=== PATIENT | female | born 1990 | race Caucasian/White ===

== ENCOUNTER 2016-06-26 05:59 | Emergency (ER) | payer MEDICARE, MEDICAID ==
[~2016-06-26 05:59] MED LIST: AMBI10TA PO; AMOX875T2 PO; BACT800T5 PO; BENA25CA2 PO; CELE20TA PO; CELE40TA PO; CLAR1TAB2 PO; CLON0.5T PO; DEPA500T2 OR; DEPAKOTE ER PO; FLUO10TA2 OR; HYDR-3713 PO; IBUP80TA PO; INVE234I IM; LAMI25TA PO; LATU1TAB PO; LEVO100T OR; LEVO100T5 PO; LEVO10VL PO; LITH1TAB4 PO; LITH300C PO; LYRI300C PO; LYRI75CA PO; MACR100C3 PO; MINI1CAP PO; NEUR600T PO; NICO14DI3 TD; OLAN20TA PO; PERC5TAB PO; PREG50CA PO; PRIL20CA OR; PROT1TAB2 PO; PROTPAK PO; QUET1TAB8 PO; QUET1TAB9 PO; QUET20XRTB PO; REME30TA PO; RISP25INJ IM; RISP3TAB18 PO; SERO1TAB PO; SERO1TAB2 PO; SKEL-29 PO; STRA80CA PO; SYNT100T PO; TRAZ100T4 PO; TRAZ50TA4 PO; ULTR50TA PO; VIST50CA PO; VITA200028 PO; VITA400C29 PO; VITA50003 PO; VITA500046 PO; VITA500T53 PO; ZANTTAB9 PO; ZYPR10TA PO; [UNRECOGNIZED DRUG - CODE] PO
[2016-06-26] MEDS ORDERED: KETOROLAC 30 MG/ML VIAL (J1885) As Ordered ONE (07:19)
[2016-06-26] MEDS ORDERED: ONDANSETRON 4MG/2ML VIAL (J2405) As Ordered ONE (07:19)
[2016-06-26 08:00] LABS: BASO % 0.2 % (0.0-1.0); EOS % 0.2 % (0.0-3.0); LARGE UNSTAINED CELL # 0.1 K/mm3 (0.0-0.4); LARGE UNSTAINED CELL % 0.4 % (0.0-4.0); LYMPH # 0.6 K/mm3 (1.5-6.5); LYMPH % 2.7 % (24.0-44.0); MEAN CORPUSCULAR HEMOGLOBIN 29.6 pg (27.0-33.0); MEAN CORPUSCULAR HGB CONC 33.6 g/dl (32.0-36.5); MEAN CORPUSCULAR VOLUME 88.2 fl (80.0-96.0); MONO # 0.3 K/mm3 (0.0-0.8); MONO % 1.6 % (0.0-5.0); NEUTROPHILS # 19.6 K/mm3 (1.8-7.7); PLATELET COUNT, AUTOMATED 312 k/mm3 (150-450); RED CELL DISTRIBUTION WIDTH 12.9 % (11.5-14.5); WHITE BLOOD COUNT 20.6 K/mm3 (4.0-10.0)
--- NOTE | 2016-06-26 08:10 | REPUSA ---
CLINICAL HISTORY: Abdominal pain. TECHNIQUE: Multiple axial, sagittal and coronal CT images were obtained through the abdomen and pelvi s without administration of oral or IV contrast material. COMMENTS: The liver is of uniform attenuation without mass or defect. There is no intra or extrahepatic biliary ductal dilatation. The spleen is normal. The gallbladder is within normal limits. The pancreas is of normal contour and attenuation characteristics. There is no evidence of adrenal mass. Moderately enlarged kidneys. Large number of bilateral renal cysts suggestive of polycystic kidney di sease. Few of them contain hyperdense material. Right renal nonobstructing stones with the largest me asuring 5 mm. There is no hydroureter or hydronephrosis. There is no evidence for appendicitis. There is no bowel wall thickening. No evidence for small or la rge bowel obstruction. There is no evidence of abdominal ascites or lymphadenopathy. There is no evidence of intrinsic or extrinsic bladder mass. There is no pelvic ascites or lymphadeno chepe. Bilateral tubal clips are noted. Diffuse thickening of the wall of the bladder. Images of the lung bases show no evidence of pleural or parenchymal mass. There are no pleural effusi ons. The bony structures are free of lytic or blastic lesions. Multilevel degenerative changes are seen in volving the thoracolumbar spine. Scattered calcifications are seen involving the aorta and major branches compatible with atherosclero sis. IMPRESSION: Moderately enlarged kidneys. Polycystic kidney disease. Bilateral hyperdense cysts of the kidneys. Right nephrolithiasis. Thank you for your kind referral of this patient.
[2016-06-26 08:11] LABS: ANION GAP 11 MEQ/L (8-16); BLOOD UREA NITROGEN 15 MG/DL (7-18); CALCIUM LEVEL 9.2 MG/DL (8.5-10.1); CARBON DIOXIDE LEVEL 25 MEQ/L (21-32); CHLORIDE LEVEL 107 MEQ/L (98-107); CREATININE FOR GFR 1.15 MG/DL (0.55-1.02); GLOMERULAR FILTRATION RATE > 60.0 (>60); GLUCOSE, FASTING 114 MG/DL (70-105); POTASSIUM SERUM 3.4 MEQ/L (3.5-5.1); SODIUM LEVEL 143 MEQ/L (136-145)
--- NOTE | 2016-06-26 08:40 | EDDOCDS ---
Physician Documentation [facility] Name: Malreny Solorio Age: 26 yrs Sex: Female : 1990 Arrival Date: 06/26/2016 Time: 05:59 Bed 7 Private MD: Disposition: 06/26/16 08:21 Discharged to Home/Self Care. Impression: Low back pain, Nausea and vomiting. - Condition is Stable. - Discharge Instructions: Viral Gastroenteritis. - Prescriptions for Ultram 50 mg Oral Tablet - take 1 tablet by ORAL route every 6 hours As needed MDD: 4 tabs; 12 tablet. ZOFRAN ODT 4 mg - dissolve 1 tablet by ORAL route 4 times per day As needed do not chew, do not swallow whole; 10 tablet. - Medication Reconciliation, Local Pharmacy Hours form. - Follow up: Private Physician; When: Call to arrange an appointment; Reason: Wound/Symptom Recheck, Recheck today's complaints, Worsening of conditions, Continuance of care. - Problem is an acute exacerbation. - Symptoms have improved. Historical: - Allergies: Geodon; - Home Meds: 1. levothyroxine 100 mcg Oral cap once daily 2. Seroquel 600 mg at hs Oral once [place] 3[place] [address] weekly - PMHx: ADHD; Anxiety; Asthma; Bipolar disorder; Fibromyalgia; hearing impaired; Hypothyroidism; Polycystic Kidney Disease; PTSD; Schizo-Affective Disorder; Scoliosis; vit d deficiency; - Social history: Smoking status: Patient uses tobacco products, current every day smoker. No barriers to communication noted. - Family history: No immediate family members are acutely ill. - : The pt / caregiver states he / she is not on anticoagulants. Home medication list is obtained from the patient. - Exposure Risk Screening:: None identified. GREEN BELT: 06/26 08:08 LMP 06/07/2016 hs1 Vital Signs: 06:10 BP 149 / 91; Pulse 82; Resp 18; Temp 100.2; Pulse Ox 100% ; mv5 08:00 BP 127 / 85; Pulse 82; Resp 18; Temp 100.1(O); Pulse Ox 100% ; Pain 0/10; hs1 08:08 Weight 83.46 kg / 184 lbs (R); Height 5 ft. 6 in. (167.64 cm) (R); hs1 08:08 Body Mass Index 29.70 (83.46 kg, 167.64 cm) hs1 MDM: 07:13 IV Saline Lock ordered. cc10 07:13 NS 0.9% 1000 ml IV at bolus once ordered. cc10 07:13 Ondansetron 4 mg IVP once ordered. cc10 07:13 ketorolac 30 mg IVP once ordered. cc10 07:13 UCG by Nursing ordered. cc10 07:14 Basic Metabolic Profile Ordered. EDMS 07:14 CBC with Diff Ordered. EDMS 07:14 Urinalysis Ordered. EDMS 07:14 Urine Culture Ordered. EDMS 07:15 CT ABD & PELVIS: No Contrast Ordered. EDMS 07:54 Financial registration complete. gb 08:07 CBC with Diff Reviewed. cc10 08:07 Urinalysis Reviewed. cc10 08:17 Basic Metabolic Profile Reviewed. cc10 Point of Care Testing: Urine : 07:32 hCG Reading: Negative; Control Reading: Positive; hs1 Ranges: Administered Medications: 07:30 Drug: NS 0.9% 1000 ml [sodium chloride 0.9 % intravenous solution] Route: IV; Rate: hs1 bolus; Site: right antecubital; 07:30 Drug: Ondansetron 4 mg [ondansetron HCl 2 mg/mL intravenous solution (2 mL)] Route: hs1 IVP; Site: right antecubital; 07:30 Drug: ketorolac 30 mg [ketorolac 30 mg/mL (1 mL) injection solution (1 mL)] Route: IVP; hs1 Site: right antecubital; Signatures: Dispatcher [employer] EDMS Kristin Mills, Reg Reg Suki Sullivan RN RN hs1 Emmett Butler, PA-C PA-C cc10 Tessie Jennings,TRISTAN RN mv5 MTDD
--- NOTE | 2016-06-26 08:40 | EDDOCDS ---
Nurse's Notes [facility] Name: Marleny Solorio Age: 26 yrs Sex: Female : 1990 Arrival Date: 06/26/2016 Time: 05:59 Bed 7 Private MD: Diagnosis: Low back pain;Nausea and vomiting Presentation: 06/26 06:03 Presenting complaint: EMS states: Pt to ed by EMS for evaluation of non-traumatic back mv5 pain, bilaterally. Pt denies dysuria, c/o chills. Reports ETOH use last night. Acute neurological deficits are not present. Mechanism of Injury: No Mechanism of Injury. Adult Sepsis Screening: The patient does not have new or worsening altered mentation. Patient's respiratory rate is less than 22. Systolic blood pressure is greater than 100. Patient has a qSOFA score of 0- Negative Sepsis Screen. Suicide/Homicide risk assessment- the patient denies having any suicidal and/or homicidal ideations and does not present with any other emotional, behavioral or mental health complaints. Status: Patient is not a message and delivery service pricer or dependent. Transition of care: patient was not received from another setting of care. 06:03 Acuity: KARI Level 4 mv5 06:03 Method Of Arrival: Ambulance mv5 Triage Assessment: 06:10 General: Appears uncomfortable, Behavior is anxious, uncooperative. Pain: Location: mv5 left mid back and right mid back Pain currently is 10 out of 10 on a pain scale. Pt Declines HIV testing. The patient is triaged at the bedside. See Assessment in Nurses Notes section of ED record. Neurological: Level of Consciousness is awake, alert, Oriented to person, place, time. Cardiovascular: Capillary refill < 3 seconds. Respiratory: Airway is patent Respiratory effort is even, unlabored, Respiratory pattern is regular, symmetrical. GI:. Derm: Skin is pink, warm & dry. Musculoskeletal: No deficits noted. WAREHOUSE PERSON: 08:08 LMP 06/07/2016 hs1 Historical: - Allergies: Geodon; - Home Meds: 1. levothyroxine 100 mcg Oral cap once daily 2. Seroquel 600 mg at hs Oral once [place] 3[place] [address] weekly - PMHx: ADHD; Anxiety; Asthma; Bipolar disorder; Fibromyalgia; hearing impaired; Hypothyroidism; Polycystic Kidney Disease; PTSD; Schizo-Affective Disorder; Scoliosis; vit d deficiency; - Social history: Smoking status: Patient uses tobacco products, current every day smoker. No barriers to communication noted. - Family history: No immediate family members are acutely ill. - : The pt / caregiver states he / she is not on anticoagulants. Home medication list is obtained from the patient. - Exposure Risk Screening:: None identified. Screenin:18 Screening information is obtained from the patient. Fall risk: No risks identified. mv5 Assistance ADL's: requires no assistance with activities of daily living. Abuse/DV Screen: The patient / caregiver reports he/she is: not in a situation that causes fear, pain or injury. Nutritional screening: No deficits noted. Advance Directives: There is no active DNR order. home support is adequate. Assessment: 06:18 General: see triage assessment.. mv5 07:05 General: overheard arguing with nurses over not receiving pain medication and demanding hs1 ice chips. Patient explained that she was awaiting a physicians orders and assessment. . 07:34 General: Appears in no apparent distress, Behavior is fussy. Pain: Location: right mid hs1 back and left mid back Pain currently is 9 out of 10 on a pain scale. Neurological: No deficits noted. Respiratory: Airway is patent Respiratory effort is even, unlabored, Respiratory pattern is regular, symmetrical. GI: Abdomen is non- distended Pt is actively vomiting bile. Derm: Skin is pink, warm & dry. normal. 07:58 General: Appears in no apparent distress, Behavior is fussy, Patient called out hs1 multiple times for ice chips- PA aware. Patient states she is feeling much better and last time she vomited was just prior to Zofran administration. Ice chips given at this time. . Pain: Denies pain. Respiratory: No deficits noted. GI: Denies nausea. Vital Signs: 06:10 BP 149 / 91; Pulse 82; Resp 18; Temp 100.2; Pulse Ox 100% ; mv5 08:00 BP 127 / 85; Pulse 82; Resp 18; Temp 100.1(O); Pulse Ox 100% ; Pain 0/10; hs1 08:08 Weight 83.46 kg (R); Height 5 ft. 6 in. (167.64 cm) (R); hs1 08:08 Body Mass Index 29.70 (83.46 kg, 167.64 cm) 1 Vitals: 06:10 Log In Time N/A - ambulance arrival. mv5 ED Course: 06:00 Tessie Jennings RN is Primary Nurse. jlm 06:00 Patient visited by Ree Berman, Tooling Inspector. jl 06:00 Patient moved to [facility] 06:08 Triage Initiated mv5 06:18 The patient / caregiver is instructed regarding the plan of care and ED course. mv5 06:59 Emmett Butler PA-C is PHCP. cc10 06:59 Ryne Johnson MD is Attending Physician. cc10 07:03 Patient visited by Tessie Jennings RN. mv5 07:09 Patient visited by Emmett Butler PA-C. cc10 07:09 Patient visited by Emmett Butler PA-C. cc10 07:28 Primary Nurse role handed off by Tessie Jennings RN mlb1 07:31 Basic Metabolic Profile Sent. hs1 07:31 CBC with Diff Sent. hs1 07:31 Urinalysis Sent. hs1 07:31 Urine Culture Sent. hs1 07:32 Inserted saline lock: 20 gauge in right antecubital area and blood collected. The hs1 patient tolerated the procedure well. Labs drawn. (by ED staff). Sent per order to lab. Urine collected. Clean catch specimen. 07:58 Patient visited by Suki Sullivan RN. hs1 08:27 Suki Sullivan RN is Primary Nurse. hs1 08:37 Discontinued IV lock intact, bleeding controlled, pressure dressing applied, No hs1 redness/swelling at site. No procedures done that require assistance. Administered Medications: 07:30 Drug: NS 0.9% 1000 ml [sodium chloride 0.9 % intravenous solution] Route: IV; Rate: hs1 bolus; Site: right antecubital; 07:30 Drug: Ondansetron 4 mg [ondansetron HCl 2 mg/mL intravenous solution (2 mL)] Route: hs1 IVP; Site: right antecubital; 07:30 Drug: ketorolac 30 mg [ketorolac 30 mg/mL (1 mL) injection solution (1 mL)] Route: IVP; hs1 Site: right antecubital; Point of Care Testing: Urine : 07:32 hCG Reading: Negative; Control Reading: Positive; hs1 Ranges: Order Results: Lab Order: Basic Metabolic Profile; SPEC'06/26/16 07:29 Test: GLUCOSE, FASTING; Value: 114; Range: 70-105; Abnormal: Above high normal; Units: MG/DL; Status: F Test: BLOOD UREA NITROGEN; Value: 15; Range: 7-18; Units: MG/DL; Status: F Test: CREATININE FOR GFR; Value: 1.15; Range: 0.55-1.02; Abnormal: Above high normal; Units: MG/DL; Status: F Test: GLOMERULAR FILTRATION RATE; Value: > 60.0; Range: >60; Status: F Test: SODIUM LEVEL; Value: 143; Range: 136-145; Units: MEQ/L; Status: F Test: POTASSIUM SERUM; Value: 3.4; Range: 3.5-5.1; Abnormal: Below low normal; Units: MEQ/L; Status: F Test: CHLORIDE LEVEL; Value: 107; Range: 98-107; Units: MEQ/L; Status: F Test: CARBON DIOXIDE LEVEL; Value: 25; Range: 21-32; Units: MEQ/L; Status: F Test: ANION GAP; Value: 11; Range: 8-16; Units: MEQ/L; Status: F Test: CALCIUM LEVEL; Value: 9.2; Range: 8.5-10.1; Units: MG/DL; Status: F Test Note: ; Units are mL/min/1.73 m2 Chronic Kidney Disease Staging per NKF: Stage I & II GFR >=60 Normal to Mildly Decreased Stage III GFR 30-59 Moderately Decreased Stage IV GFR 15-29 Severely Decreased Stage V GFR <15 Very Little GFR Left ESRD GFR <15 on [facility] Lab Order: CBC with Diff; SPEC'M 06/26/16 07:29 Test: WHITE BLOOD COUNT; Value: 20.6; Range: 4.0-10.0; Abnormal: Above high normal; Units: K/mm3; Status: F Test: RED BLOOD COUNT; Value: 5.11; Range: 4.00-5.40; Units: M/mm3; Status: F Test: HEMOGLOBIN; Value: 15.1; Range: 12.0-16.0; Units: g/dl; Status: F Test: HEMATOCRIT; Value: 45.0; Range: 36.0-47.0; Units: %; Status: F Test: MEAN CORPUSCULAR VOLUME; Value: 88.2; Range: 80.0-96.0; Units: fl; Status: F Test: MEAN CORPUSCULAR HEMOGLOBIN; Value: 29.6; Range: 27.0-33.0; Units: pg; Status: F Test: MEAN CORPUSCULAR HGB CONC; Value: 33.6; Range: 32.0-36.5; Units: g/dl; Status: F Test: RED CELL DISTRIBUTION WIDTH; Value: 12.9; Range: 11.5-14.5; Units: %; Status: F Test: PLATELET COUNT, AUTOMATED; Value: 312; Range: 150-450; Units: k/mm3; Status: F Test: NEUTROPHILS %; Value: 95.0; Range: 36.0-66.0; Abnormal: Above high normal; Units: %; Status: F Test: LYMPH %; Value: 2.7; Range: 24.0-44.0; Abnormal: Below low normal; Units: %; Status: F Test: MONO %; Value: 1.6; Range: 0.0-5.0; Units: %; Status: F Test: EOS %; Value: 0.2; Range: 0.0-3.0; Units: %; Status: F Test: BASO %; Value: 0.2; Range: 0.0-1.0; Units: %; Status: F Test: LARGE UNSTAINED CELL %; Value: 0.4; Range: 0.0-4.0; Units: %; Status: F Test: NEUTROPHILS #; Value: 19.6; Range: 1.8-7.7; Abnormal: Above high normal; Units: K/mm3; Status: F Test: LYMPH #; Value: 0.6; Range: 1.5-6.5; Abnormal: Below low normal; Units: K/mm3; Status: F Test: MONO #; Value: 0.3; Range: 0.0-0.8; Units: K/mm3; Status: F Test: EOS #; Value: 0.0; Range: 0.0-0.50; Units: K/mm3; Status: F Test: BASO #; Value: 0.0; Range: 0.0-0.2; Units: K/mm3; Status: F Test: LARGE UNSTAINED CELL #; Value: 0.1; Range: 0.0-0.4; Units: K/mm3; Status: F Lab Order: Urinalysis; SPEC'M 06/26/16 07:23 Test: APPEARANCE, URINE; Value: CLEAR; Range: CLEAR; Status: F Test: COLOR, URINE; Value: YELLOW; Range: YELLOW; Status: F Test: PH,URINE; Value: 7.0; Range: 5.0-9.0; Units: UNITS; Status: F Test: SPECIFIC GRAVITY URINE AUTO; Value: 1.015; Range: 1.002-1.035; Status: F Test: PROTEIN, URINE AUTO; Value: 1+; Range: NEGATIVE; Abnormal: Above high normal; Units: mg/dL; Status: F Test: GLUCOSE, URINE (UA) AUTO; Value: NEGATIVE; Range: NEGATIVE; Units: mg/dL; Status: F Test: KETONE, URINE AUTO; Value: 2+; Range: NEGATIVE; Abnormal: Above high normal; Units: mg/dL; Status: F Test: UROBILINOGEN, URINE AUTO; Value: 0.2; Range: 0.0-2.0; Units: mg/dL; Status: F Test: BILIRUBIN, URINE AUTO; Value: NEGATIVE; Range: NEGATIVE; Status: F Test: NITRITE, URINE AUTO; Value: NEGATIVE; Range: NEGATIVE; Status: F Test: LEUKOCYTE ESTERASE, URINE AUTO; Value: NEGATIVE; Range: NEGATIVE; Status: F Test: BLOOD, URINE BLOOD; Value: NEGATIVE; Range: NEGATIVE; Status: F Test: WBC, URINE AUTO; Value: 1; Range: 0-3; Units: /HPF; Status: F Test: RBC, URINE AUTO; Value: 2; Range: 0-3; Units: /HPF; Status: F Test: BACTERIA, URINE AUTO; Value: NEGATIVE; Range: NEGATIVE; Status: F Test: SQUAMOUS EPITHELIAL CELL UR AU; Value: 1; Range: 0-6; Units: /HPF; Status: F Test: MUCUS, URINE; Value: SMALL; Range: NEGATIVE; Status: F Test: HYALINE CAST, URINE AUTO; Value: 0; Range: 0-1; Units: /LPF; Status: F Outcome: 08:09 CT Study completed. hs1 08:21 Discharge ordered by Provider. cc10 08:37 Discharge Assessment: Patient awake, alert and oriented x 3. No cognitive and/or hs1 functional deficits noted. Patient verbalized understanding of disposition instructions. patient administered narcotics - no. The following High Risk Discharge criteria are identified: None. Discharged to home ambulatory. Condition: good. Discharge instructions given to patient, Instructed on discharge instructions, follow up and referral plans. medication usage, Demonstrated understanding of instructions, medications, Pt was receptive of discharge instructions/ teaching. Prescriptions given X 2. Property sent home with patient. 08:40 Patient left the ED. hs1 Signatures: Shankar Valderrama RN RN mlb1 Suki Sullivan RN RN hs1 Emmett Butler, PA-C PA-C cc10 Ree Berman, Tooling Inspector Unit Tessie Varghese,RN RN mv5 RACHAEL
--- NOTE | 2016-06-28 09:41 | EDDOCDS ---
Physician Documentation [facility] Name: Marleny Solorio Age: 26 yrs Sex: Female : 1990 Arrival Date: 06/26/2016 Time: 05:59 Bed 7 Private MD: Disposition: 06/26/16 08:21 Discharged to Home/Self Care. Impression: Low back pain, Nausea and vomiting. - Condition is Stable. - Discharge Instructions: Viral Gastroenteritis. - Prescriptions for Ultram 50 mg Oral Tablet - take 1 tablet by ORAL route every 6 hours As needed MDD: 4 tabs; 12 tablet. ZOFRAN ODT 4 mg - dissolve 1 tablet by ORAL route 4 times per day As needed do not chew, do not swallow whole; 10 tablet. - Medication Reconciliation, Local Pharmacy Hours form. - Follow up: Private Physician; When: Call to arrange an appointment; Reason: Wound/Symptom Recheck, Recheck today's complaints, Worsening of conditions, Continuance of care. - Problem is an acute exacerbation. - Symptoms have improved. Historical: - Allergies: Geodon; - Home Meds: 1. levothyroxine 100 mcg Oral cap once daily 2. Seroquel 600 mg at hs Oral once [place] 3. [place] [address]66 weekly - PMHx: ADHD; Anxiety; Asthma; Bipolar disorder; Fibromyalgia; hearing impaired; Hypothyroidism; Polycystic Kidney Disease; PTSD; Schizo-Affective Disorder; Scoliosis; vit d deficiency; - Social history: Smoking status: Patient uses tobacco products, current every day smoker. No barriers to communication noted. - Family history: No immediate family members are acutely ill. - : The pt / caregiver states he / she is not on anticoagulants. Home medication list is obtained from the patient. - Exposure Risk Screening:: None identified. 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 6 in. (167.64 cm) (R); hs1 08:08 Body Mass Index 29.70 (83.46 kg, 167.64 cm) hs1 MDM: 07:13 IV Saline Lock ordered. cc10 07:13 NS 0.9% 1000 ml IV at bolus once ordered. cc10 07:13 Ondansetron 4 mg IVP once ordered. cc10 07:13 ketorolac 30 mg IVP once ordered. cc10 07:13 UCG by Nursing ordered. cc10 07:14 Basic Metabolic Profile Ordered. EDMS 07:14 CBC with Diff Ordered. EDMS 07:14 Urinalysis Ordered. EDMS 07:14 Urine Culture Ordered. EDMS 07:15 CT ABD & PELVIS: No Contrast Ordered. EDMS 07:54 Financial registration complete. gb 08:07 CBC with Diff Reviewed. cc10 08:07 Urinalysis Reviewed. cc10 08:17 Basic Metabolic Profile Reviewed. cc10 09:47 [facility] Payment Agreement was scanned into PlanGrid and attached to record. gb 17:57 T-Sheet-- Draft Copy was scanned into [employer] and attached to record. klr Point of Care Testing: Urine : 07:32 hCG Reading: Negative; Control Reading: Positive; hs1 Ranges: Administered Medications: 07:30 Drug: NS 0.9% 1000 ml [sodium chloride 0.9 % intravenous solution] Route: IV; Rate: hs1 bolus; Site: right antecubital; 07:30 Drug: Ondansetron 4 mg [ondansetron HCl 2 mg/mL intravenous solution (2 mL)] Route: hs1 IVP; Site: right antecubital; 07:30 Drug: ketorolac 30 mg [ketorolac 30 mg/mL (1 mL) injection solution (1 mL)] Route: IVP; hs1 Site: right antecubital; Signatures: Dispatcher [employer] EDNM Kristin Mills, Reg Reg gb Suki Sullivan RN RN hs1 Emmett Butler PA-C PACarmen cc10 Anjana Sargent Megan,RN RN mv5 The chart was reviewed and I authenticate all verbal orders and agree with the evaluation and treatment provided.Attachments: 09:47 [facility] Payment Agreement gb 17:57 T-Sheet-- Draft Copy klr Chart Complete MTDD
--- NOTE | 2016-06-28 09:41 | EDDOCDS ---
Nurse's Notes [facility] Name: Marleny Solorio Age: 26 yrs Sex: Female : 1990 Arrival Date: 06/26/2016 Time: 05:59 Bed 7 Private MD: Diagnosis: Low back pain;Nausea and vomiting Presentation: 06/26 06:03 Presenting complaint: EMS states: Pt to ed by EMS for evaluation of non-traumatic back mv5 pain, bilaterally. Pt denies dysuria, c/o chills. Reports ETOH use last night. Acute neurological deficits are not present. Mechanism of Injury: No Mechanism of Injury. Adult Sepsis Screening: The patient does not have new or worsening altered mentation. Patient's respiratory rate is less than 22. Systolic blood pressure is greater than 100. Patient has a qSOFA score of 0- Negative Sepsis Screen. Suicide/Homicide risk assessment- the patient denies having any suicidal and/or homicidal ideations and does not present with any other emotional, behavioral or mental health complaints. Status: Patient is not a direct service provider or dependent. Transition of care: patient was not received from another setting of care. 06:03 Acuity: KARI Level 4 mv5 06:03 Method Of Arrival: Ambulance mv5 Triage Assessment: 06:10 General: Appears uncomfortable, Behavior is anxious, uncooperative. Pain: Location: mv5 left mid back and right mid back Pain currently is 10 out of 10 on a pain scale. Pt Declines HIV testing. The patient is triaged at the bedside. See Assessment in Nurses Notes section of ED record. Neurological: Level of Consciousness is awake, alert, Oriented to person, place, time. Cardiovascular: Capillary refill < 3 seconds. Respiratory: Airway is patent Respiratory effort is even, unlabored, Respiratory pattern is regular, symmetrical. GI:. Derm: Skin is pink, warm & dry. Musculoskeletal: No deficits noted. JEWELRY COATER: 08:08 LMP 06/07/2016 hs1 Historical: - Allergies: Geodon; - Home Meds: 1. levothyroxine 100 mcg Oral cap once daily 2. Seroquel 600 mg at hs Oral once [place] 3. [place] [id number] weekly - PMHx: ADHD; Anxiety; Asthma; Bipolar disorder; Fibromyalgia; hearing impaired; Hypothyroidism; Polycystic Kidney Disease; PTSD; Schizo-Affective Disorder; Scoliosis; vit d deficiency; - Social history: Smoking status: Patient uses tobacco products, current every day smoker. No barriers to communication noted. - Family history: No immediate family members are acutely ill. - : The pt / caregiver states he / she is not on anticoagulants. Home medication list is obtained from the patient. - Exposure Risk Screening:: None identified. Screenin:18 Screening information is obtained from the patient. Fall risk: No risks identified. mv5 Assistance ADL's: requires no assistance with activities of daily living. Abuse/DV Screen: The patient / caregiver reports he/she is: not in a situation that causes fear, pain or injury. Nutritional screening: No deficits noted. Advance Directives: There is no active DNR order. home support is adequate. Assessment: 06:18 General: see triage assessment.. mv5 07:05 General: overheard arguing with nurses over not receiving pain medication and demanding hs1 ice chips. Patient explained that she was awaiting a physicians orders and assessment. . 07:34 General: Appears in no apparent distress, Behavior is fussy. Pain: Location: right mid hs1 back and left mid back Pain currently is 9 out of 10 on a pain scale. Neurological: No deficits noted. Respiratory: Airway is patent Respiratory effort is even, unlabored, Respiratory pattern is regular, symmetrical. GI: Abdomen is non- distended Pt is actively vomiting bile. Derm: Skin is pink, warm & dry. normal. 07:58 General: Appears in no apparent distress, Behavior is fussy, Patient called out hs1 multiple times for ice chips- PA aware. Patient states she is feeling much better and last time she vomited was just prior to Zofran administration. Ice chips given at this time. . Pain: Denies pain. Respiratory: No deficits noted. GI: Denies nausea. Vital Signs: 06:10 BP 149 / 91; Pulse 82; Resp 18; Temp 100.2; Pulse Ox 100% ; mv5 08:00 BP 127 / 85; Pulse 82; Resp 18; Temp 100.1(O); Pulse Ox 100% ; Pain 0/10; hs1 08:08 Weight 83.46 kg (R); Height 5 ft. 6 in. (167.64 cm) (R); hs1 08:08 Body Mass Index 29.70 (83.46 kg, 167.64 cm) 1 Vitals: 06:10 Log In Time N/A - ambulance arrival. mv5 ED Course: 06:00 Tessie Jennings,TRISTAN is Primary Nurse. jlm 06:00 Patient visited by Ree Berman, Radiologist Physician. jlm 06:00 Patient moved to [facility] 06:08 Triage Initiated mv5 06:18 The patient / caregiver is instructed regarding the plan of care and ED course. mv5 06:59 Emmett Butler PA-C is PHCP. cc10 06:59 Ryne Johnson MD is Attending Physician. cc10 07:03 Patient visited by Tessie Jennings RN. mv5 07:09 Patient visited by Emmett Butler PA-C. cc10 07:09 Patient visited by Emmett Butler PA-C. cc10 07:28 Primary Nurse role handed off by Tessie Jennings RN mlb1 07:31 Basic Metabolic Profile Sent. hs1 07:31 CBC with Diff Sent. hs1 07:31 Urinalysis Sent. hs1 07:31 Urine Culture Sent. hs1 07:32 Inserted saline lock: 20 gauge in right antecubital area and blood collected. The hs1 patient tolerated the procedure well. Labs drawn. (by ED staff). Sent per order to lab. Urine collected. Clean catch specimen. 07:58 Patient visited by Suki Sullivan RN. hs1 08:27 Suki Sullivan RN is Primary Nurse. hs1 08:37 Discontinued IV lock intact, bleeding controlled, pressure dressing applied, No hs1 redness/swelling at site. No procedures done that require assistance. 08:41 CT ABD & PELVIS: No Contrast Returned. EDMS 09:47 [facility] Payment Agreement was scanned into [employer] and attached to record. gb 17:57 T-Sheet-- Draft Copy was scanned into [employer] and attached to record. klr Administered Medications: 07:30 Drug: NS 0.9% 1000 ml [sodium chloride 0.9 % intravenous solution] Route: IV; Rate: hs1 bolus; Site: right antecubital; 07:30 Drug: Ondansetron 4 mg [ondansetron HCl 2 mg/mL intravenous solution (2 mL)] Route: hs1 IVP; Site: right antecubital; 07:30 Drug: ketorolac 30 mg [ketorolac 30 mg/mL (1 mL) injection solution (1 mL)] Route: IVP; hs1 Site: right antecubital; Point of Care Testing: Urine : 07:32 hCG Reading: Negative; Control Reading: Positive; hs1 Ranges: Order Results: Lab Order: Basic Metabolic Profile; SPEC'M 06/26/16 07:29 Test: GLUCOSE, FASTING; Value: 114; Range: 70-105; Abnormal: Above high normal; Units: MG/DL; Status: F Test: BLOOD UREA NITROGEN; Value: 15; Range: 7-18; Units: MG/DL; Status: F Test: CREATININE FOR GFR; Value: 1.15; Range: 0.55-1.02; Abnormal: Above high normal; Units: MG/DL; Status: F Test: GLOMERULAR FILTRATION RATE; Value: > 60.0; Range: >60; Status: F Test: SODIUM LEVEL; Value: 143; Range: 136-145; Units: MEQ/L; Status: F Test: POTASSIUM SERUM; Value: 3.4; Range: 3.5-5.1; Abnormal: Below low normal; Units: MEQ/L; Status: F Test: CHLORIDE LEVEL; Value: 107; Range: 98-107; Units: MEQ/L; Status: F Test: CARBON DIOXIDE LEVEL; Value: 25; Range: 21-32; Units: MEQ/L; Status: F Test: ANION GAP; Value: 11; Range: 8-16; Units: MEQ/L; Status: F Test: CALCIUM LEVEL; Value: 9.2; Range: 8.5-10.1; Units: MG/DL; Status: F Test Note: ; Units are mL/min/1.73 m2 Chronic Kidney Disease Staging per NKF: Stage I & II GFR >=60 Normal to Mildly Decreased Stage III GFR 30-59 Moderately Decreased Stage IV GFR 15-29 Severely Decreased Stage V GFR <15 Very Little GFR Left ESRD GFR <15 on BLACK [employer]ER Lab Order: CBC with Diff; SPEC'M 06/26/16 07:29 Test: WHITE BLOOD COUNT; Value: 20.6; Range: 4.0-10.0; Abnormal: Above high normal; Units: K/mm3; Status: F Test: RED BLOOD COUNT; Value: 5.11; Range: 4.00-5.40; Units: M/mm3; Status: F Test: HEMOGLOBIN; Value: 15.1; Range: 12.0-16.0; Units: g/dl; Status: F Test: HEMATOCRIT; Value: 45.0; Range: 36.0-47.0; Units: %; Status: F Test: MEAN CORPUSCULAR VOLUME; Value: 88.2; Range: 80.0-96.0; Units: fl; Status: F Test: MEAN CORPUSCULAR HEMOGLOBIN; Value: 29.6; Range: 27.0-33.0; Units: pg; Status: F Test: MEAN CORPUSCULAR HGB CONC; Value: 33.6; Range: 32.0-36.5; Units: g/dl; Status: F Test: RED CELL DISTRIBUTION WIDTH; Value: 12.9; Range: 11.5-14.5; Units: %; Status: F Test: PLATELET COUNT, AUTOMATED; Value: 312; Range: 150-450; Units: k/mm3; Status: F Test: NEUTROPHILS %; Value: 95.0; Range: 36.0-66.0; Abnormal: Above high normal; Units: %; Status: F Test: LYMPH %; Value: 2.7; Range: 24.0-44.0; Abnormal: Below low normal; Units: %; Status: F Test: MONO %; Value: 1.6; Range: 0.0-5.0; Units: %; Status: F Test: EOS %; Value: 0.2; Range: 0.0-3.0; Units: %; Status: F Test: BASO %; Value: 0.2; Range: 0.0-1.0; Units: %; Status: F Test: LARGE UNSTAINED CELL %; Value: 0.4; Range: 0.0-4.0; Units: %; Status: F Test: NEUTROPHILS #; Value: 19.6; Range: 1.8-7.7; Abnormal: Above high normal; Units: K/mm3; Status: F Test: LYMPH #; Value: 0.6; Range: 1.5-6.5; Abnormal: Below low normal; Units: K/mm3; Status: F Test: MONO #; Value: 0.3; Range: 0.0-0.8; Units: K/mm3; Status: F Test: EOS #; Value: 0.0; Range: 0.0-0.50; Units: K/mm3; Status: F Test: BASO #; Value: 0.0; Range: 0.0-0.2; Units: K/mm3; Status: F Test: LARGE UNSTAINED CELL #; Value: 0.1; Range: 0.0-0.4; Units: K/mm3; Status: F Lab Order: Urinalysis; SPEC'M 06/26/16 07:23 Test: APPEARANCE, URINE; Value: CLEAR; Range: CLEAR; Status: F Test: COLOR, URINE; Value: YELLOW; Range: YELLOW; Status: F Test: PH,URINE; Value: 7.0; Range: 5.0-9.0; Units: UNITS; Status: F Test: SPECIFIC GRAVITY URINE AUTO; Value: 1.015; Range: 1.002-1.035; Status: F Test: PROTEIN, URINE AUTO; Value: 1+; Range: NEGATIVE; Abnormal: Above high normal; Units: mg/dL; Status: F Test: GLUCOSE, URINE (UA) AUTO; Value: NEGATIVE; Range: NEGATIVE; Units: mg/dL; Status: F Test: KETONE, URINE AUTO; Value: 2+; Range: NEGATIVE; Abnormal: Above high normal; Units: mg/dL; Status: F Test: UROBILINOGEN, URINE AUTO; Value: 0.2; Range: 0.0-2.0; Units: mg/dL; Status: F Test: BILIRUBIN, URINE AUTO; Value: NEGATIVE; Range: NEGATIVE; Status: F Test: NITRITE, URINE AUTO; Value: NEGATIVE; Range: NEGATIVE; Status: F Test: LEUKOCYTE ESTERASE, URINE AUTO; Value: NEGATIVE; Range: NEGATIVE; Status: F Test: BLOOD, URINE BLOOD; Value: NEGATIVE; Range: NEGATIVE; Status: F Test: WBC, URINE AUTO; Value: 1; Range: 0-3; Units: /HPF; Status: F Test: RBC, URINE AUTO; Value: 2; Range: 0-3; Units: /HPF; Status: F Test: BACTERIA, URINE AUTO; Value: NEGATIVE; Range: NEGATIVE; Status: F Test: SQUAMOUS EPITHELIAL CELL UR AU; Value: 1; Range: 0-6; Units: /HPF; Status: F Test: MUCUS, URINE; Value: SMALL; Range: NEGATIVE; Status: F Test: HYALINE CAST, URINE AUTO; Value: 0; Range: 0-1; Units: /LPF; Status: F Lab Order: Urine Culture; SPEC'M 06/26/16 07:23 Test: URINE CULTURE; Value: <EXTERNAL COMMENT eCWMed> FULL REPORT IN LAB NOTES (eCW and Medent).; Status: F Test: URINE CULTURE; Value: URINE CULTURE RESULT SPECIMEN APPEARS CONTAMINATED; Status: F Radiology Order: CT ABD & PELVIS: No Contrast Test: CT ABD & PELVIS: No Contrast REASON FOR EXAMINATION: Renal colic; ; CLINICAL HISTORY: Abdominal pain.; TECHNIQUE: Multiple axial, sagittal and coronal CT images were obtained through the abdomen and pelvi; s without administration of oral or IV contrast material.; COMMENTS:; The liver is of uniform attenuation without mass or defect. There is no intra or extrahepatic biliary; ductal dilatation. The spleen is normal. The gallbladder is within normal limits. The pancreas is of; normal contour and attenuation characteristics. There is no evidence of adrenal mass.; Moderately enlarged kidneys. Large number of bilateral renal cysts suggestive of polycystic kidney di; sease. Few of them contain hyperdense material. Right renal nonobstructing stones with the largest me; asuring 5 mm.; There is no hydroureter or hydronephrosis.; There is no evidence for appendicitis. There is no bowel wall thickening. No evidence for small or la; rge bowel obstruction. There is no evidence of abdominal ascites or lymphadenopathy.; There is no evidence of intrinsic or extrinsic bladder mass. There is no pelvic ascites or lymphadeno; chepe. Bilateral tubal clips are noted. Diffuse thickening of the wall of the bladder.; Images of the lung bases show no evidence of pleural or parenchymal mass. There are no pleural effusi; ons.; The bony structures are free of lytic or blastic lesions. Multilevel degenerative changes are seen in; volving the thoracolumbar spine.; Scattered calcifications are seen involving the aorta and major branches compatible with atherosclero; sis.; IMPRESSION:; Moderately enlarged kidneys.; Polycystic kidney disease.; Bilateral hyperdense cysts of the kidneys.; Right nephrolithiasis.; Thank you for your kind referral of this patient.; ; Outcome: 08:09 CT Study completed. hs1 08:21 Discharge ordered by Provider. cc10 08:37 Discharge Assessment: Patient awake, alert and oriented x 3. No cognitive and/or hs1 functional deficits noted. Patient verbalized understanding of disposition instructions. patient administered narcotics - no. The following High Risk Discharge criteria are identified: None. Discharged to home ambulatory. Condition: good. Discharge instructions given to patient, Instructed on discharge instructions, follow up and referral plans. medication usage, Demonstrated understanding of instructions, medications, Pt was receptive of discharge instructions/ teaching. Prescriptions given X 2. Property sent home with patient. 08:40 Patient left the ED. hs1 Signatures: Dispatcher [employer] EDMS Kristin Mills, Shankar Diaz, RN RN mlb1 Suki Sullivan RN RN hs1 Emmett Butler, PA-C PA-C cc10 Ree Berman, Radiologist Physician Unit Anjana Laboy Megan,RN RN mv5 Chart Complete RACHAEL
--- NOTE | 2016-06-28 09:41 | EDDOCDS ---
Physician Documentation [facility] Name: Marleny Solorio Age: 26 yrs Sex: Female : 1990 Arrival Date: 06/26/2016 Time: 05:59 Bed 7 Private MD: Disposition: 06/26/16 08:21 Discharged to Home/Self Care. Impression: Low back pain, Nausea and vomiting. - Condition is Stable. - Discharge Instructions: Viral Gastroenteritis. - Prescriptions for Ultram 50 mg Oral Tablet - take 1 tablet by ORAL route every 6 hours As needed MDD: 4 tabs; 12 tablet. ZOFRAN ODT 4 mg - dissolve 1 tablet by ORAL route 4 times per day As needed do not chew, do not swallow whole; 10 tablet. - Medication Reconciliation, Local Pharmacy Hours form. - Follow up: Private Physician; When: Call to arrange an appointment; Reason: Wound/Symptom Recheck, Recheck today's complaints, Worsening of conditions, Continuance of care. - Problem is an acute exacerbation. - Symptoms have improved. Historical: - Allergies: Geodon; - Home Meds: 1. levothyroxine 100 mcg Oral cap once daily 2. Seroquel 600 mg at hs Oral once daily 3. [place] [address]26 weekly - PMHx: ADHD; Anxiety; Asthma; Bipolar disorder; Fibromyalgia; hearing impaired; Hypothyroidism; Polycystic Kidney Disease; PTSD; Schizo-Affective Disorder; Scoliosis; vit d deficiency; - Social history: Smoking status: Patient uses tobacco products, current every day smoker. No barriers to communication noted. - Family history: No immediate family members are acutely ill. - : The pt / caregiver states he / she is not on anticoagulants. Home medication list is obtained from the patient. - Exposure Risk Screening:: None identified. UMBRELLA FINISHER: 06/26 08:08 LMP 06/07/2016 hs1 Vital Signs: 06:10 BP 149 / 91; Pulse 82; Resp 18; Temp 100.2; Pulse Ox 100% ; mv5 08:00 BP 127 / 85; Pulse 82; Resp 18; Temp 100.1(O); Pulse Ox 100% ; Pain 0/10; hs1 08:08 Weight 83.46 kg / 184 lbs (R); Height 5 ft. 6 in. (167.64 cm) (R); hs1 08:08 Body Mass Index 29.70 (83.46 kg, 167.64 cm) hs1 MDM: 07:13 IV Saline Lock ordered. cc10 07:13 NS 0.9% 1000 ml IV at bolus once ordered. cc10 07:13 Ondansetron 4 mg IVP once ordered. cc10 07:13 ketorolac 30 mg IVP once ordered. cc10 07:13 UCG by Nursing ordered. cc10 07:14 Basic Metabolic Profile Ordered. EDMS 07:14 CBC with Diff Ordered. EDMS 07:14 Urinalysis Ordered. EDMS 07:14 Urine Culture Ordered. EDMS 07:15 CT ABD & PELVIS: No Contrast Ordered. EDMS 07:54 Financial registration complete. gb 08:07 CBC with Diff Reviewed. cc10 08:07 Urinalysis Reviewed. cc10 08:17 Basic Metabolic Profile Reviewed. cc10 09:47 [facility] Payment Agreement was scanned into [employer] and attached to record. gb 17:57 T-Sheet-- Draft Copy was scanned into [employer] and attached to record. klr Point of Care Testing: Urine : 07:32 hCG Reading: Negative; Control Reading: Positive; hs1 Ranges: Administered Medications: 07:30 Drug: NS 0.9% 1000 ml [sodium chloride 0.9 % intravenous solution] Route: IV; Rate: hs1 bolus; Site: right antecubital; 07:30 Drug: Ondansetron 4 mg [ondansetron HCl 2 mg/mL intravenous solution (2 mL)] Route: hs1 IVP; Site: right antecubital; 07:30 Drug: ketorolac 30 mg [ketorolac 30 mg/mL (1 mL) injection solution (1 mL)] Route: IVP; hs1 Site: right antecubital; Signatures: Dispatcher [employer] EDWV Kristin Mills, Reg Reg gb Suki Sullivan RN RN hs1 Emmett Butler PA-C PACarmen cc10 Anjana Sargent Megan,RN RN mv5 The chart was reviewed and I authenticate all verbal orders and agree with the evaluation and treatment provided.Attachments: 09:47 [facility] Payment Agreement gb 17:57 T-Sheet-- Draft Copy klr Chart Complete MTDD
== END 2016-06-26 08:40 | disposition home or self-care (01) ==
LOC: M ED 05:59
DX: M54.5 Low back pain (principal); G89.29 Other chronic pain; R11.2 Nausea with vomiting, unspecified; J45.909 Unspecified asthma, uncomplicated; F25.9 Schizoaffective disorder, unspecified; F41.9 Anxiety disorder, unspecified; F31.9 Bipolar disorder, unspecified; M79.7 Fibromyalgia; H91.90 Unspecified hearing loss, unspecified ear; E03.9 Hypothyroidism, unspecified; Q61.3 Polycystic kidney, unspecified; F43.10 Post-traumatic stress disorder, unspecified; M41.9 Scoliosis, unspecified; E55.9 Vitamin D deficiency, unspecified; F17.200 Nicotine dependence, unspecified, uncomplicated; Z79.899 Other long term (current) drug therapy; Z88.8 Allergy status to other drugs, medicaments and biological substances
CPT/HCPCS: 36415; 74176; 80048; 81001; 81025; 85025; 87086; 96374; 96375; 99284; J1885; J2405

== ENCOUNTER 2016-08-05 12:37 | Inpatient (IN) | payer MEDICAID, MEDICARE, OTHER ==
[~2016-08-05] VITALS: Ht 167.6 cm; Wt 89.0 kg
[2016-08-05 13:23] LABS: MEAN CORPUSCULAR HEMOGLOBIN 29.2 pg (27.0-33.0); MEAN CORPUSCULAR HGB CONC 32.5 g/dl (32.0-36.5); MEAN CORPUSCULAR VOLUME 89.9 fl (80.0-96.0); RED CELL DISTRIBUTION WIDTH 13.1 % (11.5-14.5); WHITE BLOOD COUNT 8.9 K/mm3 (4.0-10.0)
[2016-08-05 13:33] LABS: CONTROL LINE HCG INT CTR LINE PRESENT
[2016-08-05 13:53] LABS: ALBUMIN 3.8 GM/DL (3.2-5.2); ALBUMIN/GLOBULIN RATIO 1.23 (1.00-1.93); ALKALINE PHOSPHATASE 62 U/L (45-117); ALT/SGPT 21 U/L (12-78); ANION GAP 12 MEQ/L (8-16); AST/SGOT 8 U/L (15-37); BILIRUBIN,DIRECT < 0.1 MG/DL (0.0-0.2); BILIRUBIN,TOTAL 0.2 MG/DL (0.2-1.0); BLOOD UREA NITROGEN 16 MG/DL (7-18); CALCIUM LEVEL 8.8 MG/DL (8.5-10.1); CARBON DIOXIDE LEVEL 22 MEQ/L (21-32); CHLORIDE LEVEL 109 MEQ/L (98-107); CREATININE FOR GFR 0.95 MG/DL (0.55-1.02); GLOMERULAR FILTRATION RATE > 60.0 (>60); GLUCOSE, FASTING 90 MG/DL (70-105); POTASSIUM SERUM 3.6 MEQ/L (3.5-5.1); SODIUM LEVEL 143 MEQ/L (136-145); TOTAL PROTEIN 6.9 GM/DL (6.4-8.2)
[2016-08-05 13:57] LABS: METHADONE URINE NEGATIVE (NEGATIVE)
[2016-08-05] MEDS ORDERED: ACETAMINOPHEN 325 MG TAB PO ONE (20:00)
[2016-08-05] MEDS ORDERED: SERO200T PO (21:06)
[2016-08-05] MEDS ORDERED: SYNT100T PO (21:06)
[2016-08-05 21:49] VITALS: BP 160/100
[2016-08-05] MEDS ORDERED: MOM 30ML SUSPENSION UDC PO PRN (23:00)
[2016-08-05] MEDS ORDERED: MAALOX 30 ML SUSP *UDC PO PRN (23:00)
[2016-08-05] MEDS: traZODone 50 MG TAB PO PRN (23:11)
[2016-08-06 06:14] VITALS: BP 133/72
[2016-08-06] MEDS: NICOTINE 21MG/24HR 1 EA TRANSDERMAL TD SCH ×2 (09:00→11:02)
[2016-08-06] MEDS: IBUPROFEN 400 MG TAB PO PRN ×2 (11:04→17:53)
--- NOTE | 2016-08-06 11:37 | HPEPDOC ---
Medical History and Physical Date of Admission Aug 05, 2016 at 19:16 History and Physical PCP: Corky Nolen NP ATTENDING: Dr. Vlad Musa HPI: 26yoF admitted to [facility] for depressive disorder, being medically examined today. Patient refuses exam stating she is tired. History is taken from the chart. PMHx: GERD Vitamin D deficiency Bipolar disorder Fibromyalgia/chronic pain- Followed by Dr Christianson. Polycystic kidney disease-followed by nephrology Hypothyroidism Decreased hearing/bilateral hearing aids Scoliosis Chronic back pain ADHD Tobacco use PSHX: History of tympanostomy tubes as child subsequently affecting hearing Tonsillectomy as child Tubal ligation ORIF left third metacarpal for repair of fracture 2010 SOCHX: Resides in: Patient currently stating she is homeless Marital Status: Single Kids: 3 Employment: Disabled Tobacco use: 2 packs per day ETOH: Denies Illicit Drugs: Denies IV Drug Use: Denies Tattoos done unprofessionally: Denies FAMHX: Mother: Alive, history of polycystic kidney disease, hypertension Father: , heart disease Siblings: Alive, well Children: Alive, well Unexpected deaths due to medical reasons: None. ROS: Pt does not provide history. LMP unknown per records. PE: Pt refuses. EK11/18/[address] ABN SLIGHTLY IMPROVED C/W 10/31/15 A&P: 25yoF admitted to [facility] for depressive disorder. 1. Psych. Plan per Psychiatry. EKG on file. Will update. 2. Nicotine dependence. Patch available. 3. Follow up with PCP on discharge- Linda Nolen NP. 5. Vitamin D deficiency- vitamin D level 15.6 03/11/16. Will update level. 6. Fibromyalgia/chronic pain- Follows with Dr Christianson as outpt. Possibly consider pain management opinion if needed. Currently Tylenol or ibuprofen as needed. 7. History of Polycystic kidney disease- follows as outpatient with nephrology. 8. Hypothyroidism- TSH is noted to be elevated. Possibly non compliant with supplement. Will recheck thyroid profile. Continue Synthroid 100 g daily. 9. History of chronic hearing loss-Pt is known to have hearing aids. Vital Signs Vital Signs Label Value Date Time Patient Temperature 100.1 degrees F 08/06/16 0614 Temperature Source Core 08/06/16 0614 Patient Temperature 98.4 degrees F 08/05/16 2149 Temperature Source Core 3/23/17 2149 Pulse 79 08/06/16 0614 Respiratory Rate 18 bpm 08/06/16 0614 Blood Pressure Assessment 133/72 (92) 08/06/1614 Bedside Pulse Oximetry 95 % 08/06/16613 Item Value Date Time Oxygen Delivery Method Room Air 08/06/16613 Laboratory Data Labs 24H Laboratory Tests 2 08/05/16 13:08: Urine Amphetamines Screen NEGATIVE, Urine Benzodiazepines Screen NEGATIVE, Urine Opiates Screen NEGATIVE, Urine Barbiturates Screen NEGATIVE, Urine Cannabinoids Screen POSITIVEH, Urine Cocaine Metabolite Screen NEGATIVE, Urine Methadone Screen NEGATIVE, Urine Phencyclidine Screen NEGATIVE 08/05/16 13:10: Acetaminophen Level < 2.0L, Aspartate Amino Transf (AST/SGOT) 8L, Alanine Aminotransferase (ALT/SGPT) 21, Alkaline Phosphatase 62, Total Bilirubin 0.2, Direct Bilirubin < 0.1, Albumin 3.8, Albumin/Globulin Ratio 1.23, Anion Gap 12, Calcium Level 8.8, Ethyl Alcohol Level < 0.003, Glomerular Filtration Rate > 60.0, Human Chorionic Gonadotropin, Qual NEGATIVE, Salicylates Level 2.7L, Thyroid Stimulating Hormone (TSH) 6.340H, Total Protein 6.9 CBC/BMP Laboratory Tests 08/05/16 13:10 Red Blood Count 4.64, Mean Corpuscular Volume 89.9, Mean Corpuscular Hemoglobin 29.2, Mean Corpuscular Hemoglobin Concent 32.5, Red Cell Distribution Width 13.1 Home Medications Scheduled Levothyroxine Sodium (Synthroid) 100 Mcg Tab 100 MCG PO DAILY Quetiapine Fumerate (Seroquel) 200 Mg Tab 600 MG PO QHS Allergies Coded Allergies: Ziprasidone (Verified Adverse Reaction, Intermediate, Tremors, 08/22/14) Ludivina Arciniega Aug 06, 2016 11:37
[2016-08-06 18:00] VITALS: BP 130/80
[2016-08-06] MEDS ORDERED: QUEtiapine 300 MG XR TABLET(SEROQUEL XR) PO SCH (21:00)
[2016-08-06] MEDS: QUEtiapine FUMARATE 200 MG TAB PO SCH (22:32)
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
[2016-08-07] MEDS: LEVOTHYROXINE 0.1 MG TAB (100 MCG) PO SCH (06:00)
[2016-08-07 06:50] VITALS: BP 132/71
[2016-08-07] MEDS: NICOTINE 21MG/24HR 1 EA TRANSDERMAL TD SCH (09:22)
--- NOTE | 2016-08-07 09:47 | ECGEPIP ---
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
--- NOTE | 2016-08-07 17:17 | IPN ---
DATE: 08/07/2016 I met with Marleny Solorio today, exceptionally verbal and somewhat loud. This patient has a long, long history of antipsychotics, mood stabilizers, and antidepressants. She states she is here to finally get her life stabilized and get well. I reviewed her history. She is 26 years old. Notable history of previous psychiatric admissions since 2011 and attempted to research ways to kill herself on the internet this admission. She is homeless and needs a place to stay, and has issues with her [employer] (DSS) worker. It was overheard that she was told to tell people she wanted to "hurt herself so she could stay here." She states she stopped taking her medications last year, although that contradicts the electronic medical record (EMR), which states she last took it 08/04/2016. She has ended up homeless and on probation. She stated her anxiety was 10 out of 10, depression 9 out of 10. Her diagnosis by Rosanna Do is an unspecified mood disorder, rule out bipolar disorder, rule out schizoaffective disorder. MENTAL STATUS EXAMINATION: Patient was hyper-verbal, made good eye contact. Her speech was pressured, but coherent. Her thought processes were tangential. Her thought content was not particularly logical and somewhat grandiose. Her deductive reasoning and computation were impaired. She denied suicidal or homicidal ideation. Did not appear to be responding to internal stimuli. Judgment and insight were poor. Oriented to place, person and time. Remote and recent memory are intact. Attention span and concentration were impaired. MEDICATIONS AT THIS TIME: Rosanna Do has the patient taking: - Seroquel 600 at night No change in medication at this time.
[2016-08-07 18:00] VITALS: BP 129/89
[2016-08-07] MEDS: QUEtiapine FUMARATE 200 MG TAB PO SCH (21:00)
[2016-08-08] MEDS: traZODone 50 MG TAB PO PRN (00:23)
[2016-08-08] MEDS: QUEtiapine FUMARATE 200 MG TAB PO SCH ×2 (01:04→23:16)
[2016-08-08] MEDS: LEVOTHYROXINE 0.1 MG TAB (100 MCG) PO SCH (06:02)
[2016-08-08 06:15] VITALS: BP 126/82
[2016-08-08] MEDS: NICOTINE 21MG/24HR 1 EA TRANSDERMAL TD SCH (08:38)
--- NOTE | 2016-08-08 15:29 | IPN ---
DATE: I met with Marleny Solorio and nursing today. Marleny Osmin says that she specifically came here to have medication changes. She states she has recently had a panic attack while she was here. She is requesting a different medication, but according to history taken by Rosanna Do, she has been on numerous medications. Patient is requesting an antidepressant, but in my opinion, the patient seems slightly elevated and mildly dysphoric. Patient has no particular suggestions about medication, stating that Rosanna Do was going to give her something with a "F." I decided at this time not to make any medication changes on the weekend and will discuss the case with Ms. Do when she returns to take over treatment of this patient. Speech is normal rate and rhythm. Thought process is scattered, circumferential and tangential. She has no loose associations. No psychotic thoughts. Judgment and insight are poor. She is fully oriented. Remote and recent memory are intact. Attention and concentration are good. No disturbance of language. Mood is labile and affect is neutral. IMPRESSION: This patient has a long history of bipolar disorder and compliance management and living difficulties.
[2016-08-08 18:00] VITALS: BP 130/83
[2016-08-08] MEDS ORDERED: hydrOXYzine 50 MG TAB PO PRN (21:45)
[2016-08-08] MEDS: IBUPROFEN 400 MG TAB PO PRN (21:55)
[2016-08-09] MEDS: LEVOTHYROXINE 0.1 MG TAB (100 MCG) PO SCH (05:59)
[2016-08-09 06:00] VITALS: BP 116/65
[2016-08-09 07:47] LABS: THYROXINE (T4) 7.1 UG/DL (4.5-12.0)
[2016-08-09] MEDS: VITAMIN D 50,000 UNITS CAPSULE (ERGOCALCIFEROL 1.25MG) PO SCH ×2 (08:43→15:58)
[2016-08-09] MEDS: NICOTINE 21MG/24HR 1 EA TRANSDERMAL TD SCH ×2 (08:43→15:57)
--- NOTE | 2016-08-09 11:09 | IPNPDOC ---
Subjective Date Seen The patient was seen on 08/09/16. Subjective Chief Complaint/HPI The patient is a 26-year-old female admitted with a reason for visit of DDO. Events since last encounter Requested to evaluate patient for lower extremity pain. Patient declined to get out of bed for interview or exam. General: Reports: ROS Unobtainable Objective Physical Examination Other physical findings exam unobtainable. Assessment /Plan Problems (1) Chronic pain Status: Chronic Problem Text: * Patient with history of chronic pain * History of fibromyalgia, scoliosis, chronic low back pain. * Follows as outpatient with Dr. Christianson. * Last seen by [facility] pain management 12/29/15 in regards to chronic generalized joint pain. * Possibly consider pain management consultation if needed. * Continue ibuprofen as needed. (2) Vitamin D deficiency Status: Chronic Problem Text: * Vitamin D level noted to be 14.8 on admission * Drisdol 50,000 units weekly restarted. * Outpatient follow-up with PCP Plan/VTE VTE Prophylaxis Ordered?: No (ambulatory) Disposition As per psychiatry VS, I&O, 24H, [facility] Vital Signs/I&O Vital Signs Date Time Temp Pulse Resp B/P Pulse Ox O2 Delivery O2 Flow Rate FiO2 08/09/16 06:00 99.0 74 16 116/65 08/07/16 06:50 Room Air 08/06/16 06:14 95 Laboratory Data 24H LABS Laboratory Tests 2 08/09/16 06:38: Free Thyroxine Index 2.5, Thyroid Stimulating Hormone (TSH) 4.800H, Thyroxine ( T4) 7.1, Triiodothyronine (T3) Uptake 35 Ludivina Arciniega Aug 09, 2016 11:09
--- NOTE | 2016-08-09 14:56 | IPN ---
DATE OF SERVICE: 08/09/2016 I met with Ms. Solorio today. She had the following complaints of poor attention, lots of anxiety, "psychosis." She states she hears ____voices and sees deformed issues like that perhaps like everyone yesterday had blue eyelids. She states when she had a panic attack the other night, the room was like a strobe light. At her request, I reduced her Seroquel to 500mg. In her experience, increased Seroquel seems to make her symptoms worse. I gave her Klonopin 0.5 mg three times a day, and this can be reviewed by Rosanna Do. The patient's mood is anxious. Her speech is normal range, volume, and articulation. No disturbance in thought process. No loose associations. She is expressing the psychotic thoughts, as just mentioned. Her judgment and insight are fair. She is concerned about her housing. She is fully oriented. She has had problems with recent and remote memory. Attention and concentration are normal. No disturbances of language. Fund of knowledge is normal. Mood is fair. Affect is neutral. There is some mention in her note of the emergency room that her main problem was needing housing, and she will take this up with discharge planning and with Rosanna oD. Meanwhile, the medication changes are minimal. DISCHARGE DIAGNOSIS: Bipolar disorder, psychotic features. MTDD
[2016-08-09] MEDS: clonazePAM 0.5 MG TAB PO SCH ×2 (15:35→21:52)
[2016-08-09 18:00] VITALS: BP 132/91
[2016-08-09] MEDS ORDERED: QUEtiapine FUMARATE 200 MG TAB PO SCH (21:00)
[2016-08-09] MEDS: IBUPROFEN 400 MG TAB PO PRN (22:49)
[2016-08-10 06:00] VITALS: BP 100/60
[2016-08-10] MEDS: LEVOTHYROXINE 0.1 MG TAB (100 MCG) PO SCH (06:05)
[2016-08-10] MEDS: clonazePAM 0.5 MG TAB PO SCH ×2 (08:19→15:29)
[2016-08-10] MEDS: NICOTINE 21MG/24HR 1 EA TRANSDERMAL TD SCH (08:19)
[2016-08-10 18:26] VITALS: BP 128/81
--- NOTE | 2016-08-10 18:43 | IPNPDOC ---
[facility] Progress Note Progress Note DATE OF SERVICE: 08/10/16 HISTORY: Patient is a 26-year-old female with notable history of previous psychiatric admissions dating back to 2011, was last admitted to [facility] in February 2016 after researching ways to kill herself on the Internet. Patient informed the ER that she is homeless and needs a place to stay, added that she is having issues with her DSS worker. Patient met with weekend provider and requested that her Seroquel dose be reduced, requested benzodiazepine to address symptoms of anxiety, today informs science writer that she feels her anxiety medication needs to be increased and also makes request for ADHD medication, adding she does not feel Strattera was effective and feels she needs to be prescribed a stimulant medication. Patient states she feels her chronic pain is a major source of her psychiatric symptoms at this time, notes she feels she needs pain medication other than Tylenol made available to her. Patient today asked for her Seroquel to be increased to 600 mg stating, "I can clearly see now that the medication was working." Patient has been attending groups, has been visible and has not presented as a behavior management. Patient rates current anxiety level as 8/10, depression 8/10, denies suicidal and homicidal ideation, endorses audio and visual hallucinations involving seeing people with blue eyelids, "some ernesto check in on me in the room," and "strobe light" effect to room over the weekend. Patient states to science writer, "I'm not the average person , I'm sicker and I need a lot of treatment and a lot of medications." Patient denies urge to engage in self-injurious behavior. Patient informs science writer she needs ADHD medication because "I'm not getting get any better, I mean my mood and my anxiety won't get any better unless my inability to concentrate is addressed first." Patient also makes request for pain medication. Patient was informed that her reported symptoms of psychosis would need to be stabilized and that she would need to be evaluated for ADHD in the outpatient environment and for the appropriateness of stimulant medication. Patient today informs science writer that she is willing to consider a TLS referral to the apartment level, not CR noting, "it's just impossible for me to have a roommate." Patient reminds science writer she has history of multiple medication trials adding, "nothing worked." Regarding injectables, patient states she has trialed all injectable medications except for Haldol Decanoate. Patient declines gabapentin noting she has taken that in the past with poor effect, adds she was prescribed gabapentin after pain management would no longer give her Lyrica due to "they said I took too many." Patient becomes upset and crying when science writer encourages her to consider another anxiolytic, informs science writer she feels benzodiazepine dose should be increased, declines BuSpar trial indicating she is taken in the past with poor effect. Marine Pipe Welder also discussed Strattera trial, patient informed science writer that she has taken medication in the past and medication was ineffective. Patient refused low-dose Seroquel PRN, noted she has trialed all atypical antipsychotics, including Haldol, which didn't work. VITAL SIGNS: See below. NEW TEST RESULTS: No new results PAST MEDICAL/SURGICAL HISTORY: GERD, vitamin D deficiency, fibromyalgia/chronic pain, polycystic kidney disease, hypothyroidism, decreased hearing with bilateral hearing aids, scoliosis, chronic back pain. Patient has history of tympanostomy tubes, tonsillectomy, tubal ligation, ORIF left third metacarpal for repair of fracture. Patient has chronic pain, will ask PA to consider referral for pain consult. Labs on admission indicate elevated chloride and TSH, low AST and vitamin D. HCG negative on admission UDS positive for cannabinoids CURRENT MEDICATIONS: See below. MENTAL STATUS EXAMINATION: General appearance: Patient is a 26-year-old female who is evasive, provides conflicting information, makes poor eye contact, exhibits adequate hygiene, is dressed in hospital clothing, ambulates with steady gait, appears stated age Speech: Spontaneous, overproductive, pressured, coherent, of normal volume Thought processes: Goal-directed, tangential at times. Thought content: Generally logical and rational Abstract reasoning and computation: Impaired. Description of associations: Tangential at times but very redirectable. Description of abnormal or psychotic thoughts: Denies any suicidal or homicidal ideation. Reports audiovisual hallucinations, does not appear to be responding to internal stimuli. No bizarre behavior noted and patient expresses no paranoid ideation Judgment: Poor. Insight: Poor. Orientation: Appears to be alert to situation and oriented to person, place and time of day Recent and remote memory: Appears intact Attention span and concentration: Adequate. Fund of knowledge: Adequate Mood: "I'm very depressed and anxious, I'm not like other people, I'm really sick." Patient appears less depressed and less anxious, no mood lability noted at time of interaction Affect: Blunted, brightens at times DIAGNOSES: Unspecified mood disorder, rule out bipolar disorder, rule out schizoaffective disorder, rule out IED, rule out personality disorder, rule out substance-induced mood disorder. ADHD per patient report ASSESSMENT: Patient is 26-year-old single female, mother of 3 children, who cites social stressors related to relationship tension, homelessness, and exacerbation of mood lability symptoms with suicidal ideation. Patient has been visible on unit, attending groups, interacting with select peers. Patient's speech is overproductive, somewhat pressured, she informs science writer multiple times during interaction that she needs benzodiazepine initiated by weekend provider to be increased, requests pain medication, and indicates she needs medication to address ADHD symptoms. Patient makes request for Seroquel to be increased back up to 600 mg po q hs, today denies experiencing side effects from medication and notes medication at 600 mg dose was effective. When science writer attempts to explain to patient that she will need to be stabilized before evaluated for ADHD patient indicates, "Well, I just can't guarantee that I'm not going to flip out if I don't get the medication 'cause it's my ADHD that needs to be corrected in order for me to get better." Patient is on probation and recycling coordinator is attempting communication with press officer to determine appropriate discharge for patient. Patient indicates she is now open to referral to TLS but only to independent living level, not CR. Will increase patient's Seroquel back up to 600 mg dose, will change Klonopin 0.5 mg TID to when necessary, have encouraged patient to utilize hydroxyzine PRN to address reported intermittent symptoms of anxiety. Patient agrees to consider non- stimulant medication options reviewed today, will follow up with patient tomorrow to evaluate interest in new medication trial. Will monitor patient's response to medications, monitor for side effects, will evaluate for patient safety, resolution of suicidal ideation, and discharge readiness. MANAGEMENT PLAN: Increase Seroquel to 600 mg po q hs. Change Klonopin 0.5 to PRN TID anxiety/agitation, continue hydroxyzine 50 mg po q 6 hours PRN anxiety Maintain safety precautions Will ask PA to consider referral for pain consult Patient to attend groups and participate in unit programming to develop coping strategies Engage patient in discharge planning process and arrange meeting with press officer and/or support system to ensure safe discharge planning when appropriate Patient to follow up with PCM upon discharge TIME SPENT: 35 minutes. Vital Signs Vital Signs Date Time Temp Pulse Resp B/P Pulse Ox O2 Delivery O2 Flow Rate FiO2 08/10/16 06:00 98.7 78 18 100/60 08/07/16 06:50 Room Air 08/06/16 06:14 95 Current Medications Current Medications Al Hydrox/Mg Hydrox/Simethicone (Mylanta) 30 ml Q4HP PRN PO HEARTBURN/ INDIGESTION; Start 08/05/16 at 23:00; Stop 09/04/16 at 22:59 Clonazepam (KlonoPIN) 0.5 mg TID PO Last administered on 08/10/16 15:29; Start 08/09/16 at 16:00; Stop 08/10/16 at 18:04; Status DC Clonazepam (KlonoPIN) 0.5 mg TIDP PRN PO ANXIETY/AGITATION; Start 08/10/16 at 21:00; Stop 08/17/16 at 20:59 Home Med (Med Rec Complete!) ASDIRECTED XX ; Start 08/05/16 at 21:15; Stop at 21:15; Status DC Hydroxyzine HCl (Atarax) 50 mg Q6HP PRN PO ANXIETY Last administered on 21:54; Start 08/08/16 at 21:45; Stop 09/07/16 at 21:44 Ibuprofen (Advil) 400 mg Q6HP PRN PO PAIN Last administered on 08/09/16 22:49 ; Start 08/05/16 at 23:00; Stop 09/04/16 at 22:59 Levothyroxine Sodium (Synthroid) 0.1 mg DAILY@06 PO Last administered on 06:05; Start 08/07/16 at 06:00; Stop 09/06/16 at 05:59 Magnesium Hydroxide (Milk Of Magnesia) 30 ml DAILYPRN PRN PO CONSTIPATION; Start 08/05/16 at 23:00; Stop 09/04/16 at 22:59 Nicotine (Nicoderm Cq 21mg) 1 patch DAILY TD Last administered on 08/10/16 08: 19; Start 08/06/16 at 09:00; Stop 09/05/16 at 08:59 Quetiapine Fumarate (SEROquel XR) 600 mg QHS PO ; Start 08/06/16 at 21:00; Stop 08/06/16 at 21:00; Status DC Quetiapine Fumarate (SEROquel) 500 mg QHS PO Last administered on 08/09/16 22: 47; Start 08/09/16 at 21:00; Stop 08/10/16 at 17:59; Status DC Quetiapine Fumarate (SEROquel) 600 mg QHS PO Last administered on 08/08/16 23: 16; Start 08/06/16 at 21:00; Stop 08/09/16 at 14:32; Status DC Quetiapine Fumarate (SEROquel) 600 mg QHS PO ; Start 08/10/16 at 21:00; Stop at 20:59 Trazodone HCl (Desyrel) 50 mg QHSP PRN PO INSOMNIA Last administered on 00:23; Start 08/05/16 at 23:00; Stop 09/04/16 at 22:59 Vitamin D (Drisdol) 50,000 units Mo@09 PO Last administered on 08/09/16 15:58 ; Start 08/09/16 at 09:00; Stop 09/08/16 at 08:59 Allergies Coded Allergies: Ziprasidone (Verified Adverse Reaction, Intermediate, Tremors, 08/22/14) Rosanna Mijares Aug 10, 2016 18:43
[2016-08-10] MEDS ORDERED: clonazePAM 0.5 MG TAB PO PRN (21:00)
[2016-08-10] MEDS: IBUPROFEN 400 MG TAB PO PRN (21:09)
[2016-08-10] MEDS: QUEtiapine FUMARATE 200 MG TAB PO SCH (22:15)
[2016-08-11 06:16] VITALS: BP 110/65
[2016-08-11] MEDS: LEVOTHYROXINE 0.1 MG TAB (100 MCG) PO SCH (06:33)
--- NOTE | 2016-08-11 09:10 | IPNPDOC ---
[facility] Progress Note Progress Note DATE OF SERVICE: 08/11/16 HISTORY: Patient is a 26-year-old female with notable history of previous psychiatric admissions dating back to 2011, was last admitted to [facility] in February 2016 after researching ways to kill herself on the Internet. At time of current admission patient reported depression, suicidal ideation, agitation, and informed the ER that she is homeless and needs a place to stay, added that she is having issues with her DSS worker. Patient met with weekend provider and requested that her Seroquel dose be reduced, requested benzodiazepine to address symptoms of anxiety. Today patient makes request for increased in dose to benzodiazepine, also demands ADHD medication. Medical Physics Researcher presented patient with medication options all of which were declined by patient. At one point patient indicated she was agreeable to medication change, then changed her mind referring to medication options as "junk," was provided opportunity to let policy writer typist know what medications have been effective in past which she declined. At patient's insistence medications options discussed were addition of BuSpar or Strattera or change in antipsychotic medication. At one point during conversation patient indicated she would be open to medication change but only if changes were made to antipsychotic, in addition to increase in benzodiazepine dose or change in anxiolytic, with addition of ADHD medication simultaneously. Medical Physics Researcher made multiple attempts to explain safety risks of making multiple medication changes at one time, patient dismissed policy writer typist stating, "I' ve been here 1 million times and they give me what I want in medications, you' re not trying to help me you're just worried about your job," then indicated she did not want to speak with policy writer typist any further. Patient was reminded that her reported symptoms of psychosis and anxiety would need to be stabilized in inpatient setting and that she would need to be evaluated for ADHD in the outpatient environment and for the appropriateness of stimulant medication. Prior to terminating discussion with policy writer typist patient reiterated that her chronic pain is a major source of her psychiatric symptoms at this time, informed policy writer typist she was being prescribed Lyrica in outpatient setting but that was discontinued due to providers apparent suspicion that "I wasn't taking it right possibly." Patient was informed that pain management consult has been requested. Patient has been attending some groups, has been visible and has not presented as a behavior management problem. Patient rates current anxiety level as 8/10, depression 8/10, denies suicidal and homicidal ideation, endorses audio and visual hallucinations involving "I hear and see shit that ain't there, " does not elaborate. Patient denies urge to engage in self-injurious behavior. Addendum: Later in day policy writer typist received call from nursing indicating patient wanted to speak again regarding medications and was making request for PRN haldol. Patient was observed to be sitting calmly on bed with piece of plastic and had superficially scratched forearm. Patient reminded policy writer typist she has history of multiple medication trials adding, "nothing worked." Patient indicated she is willing to take injectable medication and informed policy writer typist she has taken Risperdal constant in the past with good effect, denied medication side effects. Patient requested PRN dose of Risperdal to address symptoms of agitation, was apprised of potential risk related to renal impairment. VITAL SIGNS: See below. NEW TEST RESULTS: No new results PAST MEDICAL/SURGICAL HISTORY: GERD, vitamin D deficiency, fibromyalgia/chronic pain, polycystic kidney disease, hypothyroid is him, decreased hearing with bilateral hearing aids, scoliosis, chronic back pain. Patient has history of tympanostomy tubes, tonsillectomy, tubal ligation, ORIF left third metacarpal for repair of fracture. Patient has chronic pain, will ask PA to consider referral for pain consult. Labs on admission indicate elevated chloride and TSH, low AST and vitamin D. HCG negative on admission UDS positive for cannabinoids CURRENT MEDICATIONS: See below. MENTAL STATUS EXAMINATION: General appearance: Patient is a 26-year-old female who is evasive, provides conflicting information, makes poor eye contact, exhibits adequate hygiene, is dressed in hospital clothing, ambulates with steady gait, appears stated age Speech: Spontaneous, less pressured today, normal rhythm, coherent, of normal volume except when making demands related to medications Thought processes: Goal-directed, no tangentiality noted Thought content: Generally logical and rational Abstract reasoning and computation: Impaired. Description of associations: Intact Description of abnormal or psychotic thoughts: Denies any suicidal or homicidal ideation. Reports audiovisual hallucinations, does not appear to be responding to internal stimuli. No bizarre behavior noted and patient expresses no paranoid ideation Judgment: Poor. Insight: Poor. Orientation: Appears to be alert to situation and oriented to person, place and time of day Recent and remote memory: Appears intact Attention span and concentration: Adequate. Fund of knowledge: Adequate Mood: "I'm very depressed and anxious and I'm seeing shit man, how many times do I gotta tell you." Patient appears anxious, possibly depressed, no mood lability noted at time of interaction Affect: Blunted DIAGNOSES: Unspecified mood disorder, polysubstance use disorder, rule out bipolar disorder, rule out schizoaffective disorder, rule out IED, rule out personality disorder, rule out substance-induced mood disorder. ADHD per patient report ASSESSMENT: Patient has been visible on unit, attending some groups, interacting with select peers. Patient continues to vacillate between medications she says she will take, then notes she will not. Patient today informs policy writer typist she wants med changes and wants all changes made at same time. Patient is on probation and blending coordinator is attempting communication with science and operations officer to determine appropriate discharge for patient. Discharge corn eater is also attempting to procure comprehensive medication list for patient in effort to determine medications which have been effective. Patient indicates she is now open to referral to TLS but only to independent living level, not CR. Will continue to work with patient on medication adjustment. Patient has been provided with medication information and has been educated on the risks and potential side effects of medications particularly with regard to renal disease. Will continue current medication regimen. Will monitor patient's response to medications, monitor for side effects, will evaluate for patient safety, resolution of suicidal ideation, and discharge readiness. MANAGEMENT PLAN: After receiving call from nursing, patient's medications were changed to: Risperdal 4 mg by mouth one time now. Continue Seroquel 600 mg po q hs. Discontinue Klonopin 0.5 PRN TID anxiety/agitation. Discontinue hydroxyzine 50 mg po q 6 hours PRN anxiety. Nursing was advised to monitor blood pressure. Will evaluate cross titration to Risperdal tomorrow and need for addition of BuSpar. Patient was informed that other medications which may cause sedation or lower blood pressure would be discontinued, patient verbalized understanding and agreement. Vitals every 4 hours Maintain safety precautions Will ask PA to consider referral for pain consult Patient to attend groups and participate in unit programming to develop coping strategies Engage patient in discharge planning process and arrange meeting with science and operations officer and/or support system to ensure safe discharge planning when appropriate Patient to follow up with PCM upon discharge TIME SPENT: 45 minutes. Vital Signs Vital Signs Date Time Temp Pulse Resp B/P Pulse Ox O2 Delivery O2 Flow Rate FiO2 08/11/16 06:16 99.4 96 20 110/65 Room Air 08/06/16 06:14 95 Current Medications Current Medications Al Hydrox/Mg Hydrox/Simethicone (Mylanta) 30 ml Q4HP PRN PO HEARTBURN/ INDIGESTION; Start 08/05/16 at 23:00; Stop 09/04/16 at 22:59 Clonazepam (KlonoPIN) 0.5 mg TID PO Last administered on 08/10/16 15:29; Start 08/09/16 at 16:00; Stop 08/10/16 at 18:04; Status DC Clonazepam (KlonoPIN) 0.5 mg TIDP PRN PO ANXIETY/AGITATION; Start 08/10/16 at 21:00; Stop 08/17/16 at 20:59 Home Med (Med Rec Complete!) ASDIRECTED XX ; Start 08/05/16 at 21:15; Stop at 21:15; Status DC Hydroxyzine HCl (Atarax) 50 mg Q6HP PRN PO ANXIETY Last administered on 21:54; Start 08/08/16 at 21:45; Stop 09/07/16 at 21:44 Ibuprofen (Advil) 400 mg Q6HP PRN PO PAIN Last administered on 08/10/16 21:09 ; Start 08/05/16 at 23:00; Stop 09/04/16 at 22:59 Levothyroxine Sodium (Synthroid) 0.1 mg DAILY@06 PO Last administered on 06:33; Start 08/07/16 at 06:00; Stop 09/06/16 at 05:59 Magnesium Hydroxide (Milk Of Magnesia) 30 ml DAILYPRN PRN PO CONSTIPATION; Start 08/05/16 at 23:00; Stop 09/04/16 at 22:59 Nicotine (Nicoderm Cq 21mg) 1 patch DAILY TD Last administered on 08/10/16 08: 19; Start 08/06/16 at 09:00; Stop 09/05/16 at 08:59 Quetiapine Fumarate (SEROquel XR) 600 mg QHS PO ; Start 08/06/16 at 21:00; Stop 08/06/16 at 21:00; Status DC Quetiapine Fumarate (SEROquel) 500 mg QHS PO Last administered on 08/09/16 22: 47; Start 08/09/16 at 21:00; Stop 08/10/16 at 17:59; Status DC Quetiapine Fumarate (SEROquel) 600 mg QHS PO Last administered on 08/08/16 23: 16; Start 08/06/16 at 21:00; Stop 08/09/16 at 14:32; Status DC Quetiapine Fumarate (SEROquel) 600 mg QHS PO Last administered on 08/10/16 22: 15; Start 08/10/16 at 21:00; Stop 09/09/16 at 20:59 Trazodone HCl (Desyrel) 50 mg QHSP PRN PO INSOMNIA Last administered on 00:23; Start 08/05/16 at 23:00; Stop 09/04/16 at 22:59 Vitamin D (Drisdol) 50,000 units Mo@09 PO Last administered on 08/09/16 15:58 ; Start 08/09/16 at 09:00; Stop 09/08/16 at 08:59 Allergies Coded Allergies: Ziprasidone (Verified Adverse Reaction, Intermediate, Tremors, 08/22/14) Rosanna Mijares Aug 11, 2016 09:10 Vitamin D (Drisdol) 50,000 units Mo@09 PO Last administered on 08/09/16 15:58 ; Start 08/09/16 at 09:00; Stop 09/08/16 at 08:59 Allergies Coded Allergies: Ziprasidone (Verified Adverse Reaction, Intermediate, Tremors, 08/22/14) Rosanna Mijares Aug 11, 2016 09:10
[2016-08-11] MEDS: NICOTINE 21MG/24HR 1 EA TRANSDERMAL TD SCH (09:12)
[2016-08-11] MEDS ORDERED: HALOPERIDOL 2 MG TAB PO PRN (17:15)
[2016-08-11] MEDS ORDERED: BENZTROPINE 0.5 MG TAB PO PRN (17:15)
[2016-08-11] MEDS ORDERED: risperiDONE 2 MG TAB PO ONE (17:15)
[2016-08-11 18:00] VITALS: BP 140/88
[2016-08-11] MEDS: IBUPROFEN 400 MG TAB PO PRN (18:24)
[2016-08-11] MEDS: QUEtiapine FUMARATE 200 MG TAB PO SCH (21:57)
[2016-08-12] MEDS: LEVOTHYROXINE 0.1 MG TAB (100 MCG) PO SCH (05:58)
[2016-08-12] MEDS ORDERED: HALOPERIDOL 5 MG/ML VIAL (J1630) As Ordered ONE (07:47)
[2016-08-12] MEDS: NICOTINE 21MG/24HR 1 EA TRANSDERMAL TD SCH (09:55)
[2016-08-12 18:00] VITALS: BP 139/77
[2016-08-12] MEDS: HALOPERIDOL 2 MG TAB PO PRN (19:06)
[2016-08-12] MEDS: IBUPROFEN 400 MG TAB PO PRN (19:09)
--- NOTE | 2016-08-12 19:18 | IPNPDOC ---
[facility] Progress Note Progress Note DATE OF SERVICE: 08/12/16 HISTORY: Patient is a 26-year-old female with notable history of previous psychiatric admissions dating back to 2011, was last admitted to [facility] in February 2016 after researching ways to kill herself on the Internet. At time of current admission patient reported depression, suicidal ideation, agitation, and informed the ER that she is homeless and needs a place to stay, added that she is having issues with her DSS worker. Radio Board Operator met with patient today to assess treatment progress on inpatient unit. Patient was observed resting comfortably in bed, is calmer today, no signs of agitation, was easily engaged. Patient indicates she feels less depressed today , reports ongoing anxiety related to discharge planning. Patient rates current depression level as 0/10, anxiety 7/10, denies suicidal and homicidal ideation, denies audiovisual hallucinations, denies urge to engage in self-injurious behavior. Patient makes no demand today for benzodiazepine or stimulant medication. Patient utilized PRN Haldol dose 1 and indicates one-time Risperdal dose yesterday was effective, states she continues to desire po Risperdal trial with plan to transition to injectable, reiterates today she has taken medication in the past, medication was effective, and denies medication side effects. Patient is aware Seroquel dose will be reduced in effort to cross titrate medications. Patient makes requests for BuSpar in effort to address symptoms of anxiety, states she has taken medication in the past and denies medication side effects. Potential medication risks and side effects were reviewed with patient and patient is aware that renal dosing will be necessary with Risperdal, verbalizes agreement. Prior reiterated today that chronic pain remains a major source of psychiatric symptoms, was reminded that PA has submitted requests for pain management consult. Patient attended groups today and service writer advisor checked in with group home supervisor who indicated patient appeared anxious at times but was appropriate, redirectable, and appropriate with no signs of agitation or aggression. VITAL SIGNS: See below. NEW TEST RESULTS: No new results PAST MEDICAL/SURGICAL HISTORY: GERD, vitamin D deficiency, fibromyalgia/chronic pain, polycystic kidney disease, hypothyroid is him, decreased hearing with bilateral hearing aids, scoliosis, chronic back pain. Patient has history of tympanostomy tubes, tonsillectomy, tubal ligation, ORIF left third metacarpal for repair of fracture. Patient has chronic pain, will ask PA to consider referral for pain consult. Labs on admission indicate elevated chloride and TSH, low AST and vitamin D. HCG negative on admission UDS positive for cannabinoids CURRENT MEDICATIONS: See below. MENTAL STATUS EXAMINATION: General appearance: Patient is a 26-year-old female who remains evasive, provides conflicting information, makes fair eye contact, exhibits adequate hygiene, is dressed in hospital clothing, ambulates with steady gait, appears stated age Speech: Spontaneous, less pressured today, normal rhythm, coherent, of normal volume except when making demands related to medications Thought processes: Goal-directed, no tangentiality noted Thought content: Generally logical and rational Abstract reasoning and computation: Impaired. Description of associations: Intact Description of abnormal or psychotic thoughts: Denies any suicidal or homicidal ideation. Reports audiovisual hallucinations, does not appear to be responding to internal stimuli. No bizarre behavior noted and patient expresses no paranoid ideation Judgment: Poor. Insight: Poor. Orientation: Appears to be alert to situation and oriented to person, place and time of day Recent and remote memory: Appears intact Attention span and concentration: Adequate. Fund of knowledge: Adequate Mood: "I'm less depressed today but I'm still anxious especially when I think about my discharge plan." Patient appears less anxious, less depressed, no mood lability noted at time of interaction Affect: Constricted DIAGNOSES: Unspecified mood disorder, polysubstance use disorder, rule out bipolar disorder, rule out schizoaffective disorder, rule out IED, rule out personality disorder, rule out substance-induced mood disorder. ADHD per patient report ASSESSMENT: Patient has been visible on unit, attending groups, interacting with select peers. Patient provides clear request and commitment today to taking Risperdal po with plan to transition to injectable. Patient is on probation and review coordinator is attempting communication with egg caser and principal gifts officer to determine appropriate discharge for patient. sales program coordinator indicates DSS is also attempting to determine if patient can afford own apartment. sales program coordinator is also attempting to procure comprehensive medication list for patient in effort to determine medications which have been effective. Patient indicates she remains open to referral to TLS but only to independent living level, not CR. Will initiate Risperdal/ Seroquel cross titration, will provide BuSpar to address symptoms of anxiety. Patient has been provided with medication information and has been educated on the risks and potential side effects of medications particularly with regard to renal disease. Will monitor patient's response to medications, monitor for side effects, will evaluate for patient safety, resolution of suicidal ideation, and discharge readiness. MANAGEMENT PLAN: Initiate med trial Risperdal 0.5 mg po BID with plan to titrate as tolerated by patient, BuSpar 5 mg po BID, reduce Seroquel to 300 mg po hs with plan to taper as tolerated by patient Vitals every 4 hours Maintain safety precautions Will ask PA to consider referral for pain consult Patient to attend groups and participate in unit programming to develop coping strategies Engage patient in discharge planning process and arrange meeting with principal gifts officer and/or support system to ensure safe discharge planning when appropriate Patient to follow up with PCM upon discharge TIME SPENT: 35 minutes. Vital Signs Vital Signs Date Time Temp Pulse Resp B/P Pulse Ox O2 Delivery O2 Flow Rate FiO2 08/11/16 18:00 98.2 94 18 140/88 08/11/16 06:16 Room Air 08/06/16 06:14 95 Current Medications Current Medications Al Hydrox/Mg Hydrox/Simethicone (Mylanta) 30 ml Q4HP PRN PO HEARTBURN/ INDIGESTION; Start 08/05/16 at 23:00; Stop 09/04/16 at 22:59 Benztropine Mesylate (Cogentin) 1 mg Q6HP PRN PO EPS; Start 08/11/16 at 17:15; Stop 09/10/16 at 17:14 Buspirone HCl (Buspar) 5 mg BID PO ; Start 08/12/16 at 21:00; Stop 09/11/16 at 20:59 Clonazepam (KlonoPIN) 0.5 mg TID PO Last administered on 08/10/16 15:29; Start 08/09/16 at 16:00; Stop 08/10/16 at 18:04; Status DC Clonazepam (KlonoPIN) 0.5 mg TIDP PRN PO ANXIETY/AGITATION Last administered on 08/11/16 12:22; Start 08/10/16 at 21:00; Stop 08/11/16 at 17:10; Status DC Haloperidol (Haldol) 2 mg Q6HP PRN PO SEVERE AGITATION Last administered on 18:21; Start 08/11/16 at 17:15; Stop 08/12/16 at 15:36; Status DC Haloperidol (Haldol) 2 mg Q6HP PRN PO SEVERE AGITATION; Start 08/12/16 at 15:45 ; Stop 08/17/16 at 17:14 Home Med (Med Rec Complete!) ASDIRECTED XX ; Start 08/05/16 at 21:15; Stop at 21:15; Status DC Hydroxyzine HCl (Atarax) 50 mg Q6HP PRN PO ANXIETY Last administered on 21:54; Start 08/08/16 at 21:45; Stop 08/11/16 at 17:10; Status DC Ibuprofen (Advil) 400 mg Q6HP PRN PO PAIN Last administered on 08/11/16 18:24 ; Start 08/05/16 at 23:00; Stop 09/04/16 at 22:59 Levothyroxine Sodium (Synthroid) 0.1 mg DAILY@06 PO Last administered on 05:58; Start 08/07/16 at 06:00; Stop 09/06/16 at 05:59 Magnesium Hydroxide (Milk Of Magnesia) 30 ml DAILYPRN PRN PO CONSTIPATION; Start 08/05/16 at 23:00; Stop 09/04/16 at 22:59 Nicotine (Nicoderm Cq 21mg) 1 patch DAILY TD Last administered on 08/12/16 09: 55; Start 08/06/16 at 09:00; Stop 09/05/16 at 08:59 Quetiapine Fumarate (SEROquel XR) 600 mg QHS PO ; Start 08/06/16 at 21:00; Stop 08/06/16 at 21:00; Status DC Quetiapine Fumarate (SEROquel) 300 mg QHS PO ; Start 08/12/16 at 21:00; Stop at 20:59 Quetiapine Fumarate (SEROquel) 500 mg QHS PO Last administered on 08/09/16 22: 47; Start 08/09/16 at 21:00; Stop 08/10/16 at 17:59; Status DC Quetiapine Fumarate (SEROquel) 600 mg QHS PO Last administered on 08/08/16 23: 16; Start 08/06/16 at 21:00; Stop 08/09/16 at 14:32; Status DC Quetiapine Fumarate (SEROquel) 600 mg QHS PO Last administered on 08/11/16 21: 57; Start 08/10/16 at 21:00; Stop 08/12/16 at 18:52; Status DC Risperidone (RisperDAL) 0.5 mg BID PO ; Start 08/12/16 at 21:00; Stop 09/11/16 at 20:59 Trazodone HCl (Desyrel) 50 mg QHSP PRN PO INSOMNIA Last administered on 00:23; Start 08/05/16 at 23:00; Stop 08/11/16 at 17:10; Status DC Vitamin D (Drisdol) 50,000 units Mo@09 PO Last administered on 08/09/16 15:58 ; Start 08/09/16 at 09:00; Stop 09/08/16 at 08:59 Allergies Coded Allergies: Ziprasidone (Verified Adverse Reaction, Intermediate, Tremors, 08/22/14) Rosanna Mijares Aug 12, 2016 19:18 Rosanna Mijares Aug 12, 2016 19:18
[2016-08-12] MEDS: QUEtiapine FUMARATE 200 MG TAB PO SCH (23:04)
[2016-08-12] MEDS: risperiDONE 0.5 MG TAB PO SCH (23:04)
[2016-08-12] MEDS: busPIRone 5 MG TAB PO SCH (23:04)
[2016-08-13] MEDS: LEVOTHYROXINE 0.1 MG TAB (100 MCG) PO SCH (06:03)
[2016-08-13 06:26] VITALS: BP 117/72
[2016-08-13] MEDS: NICOTINE 21MG/24HR 1 EA TRANSDERMAL TD SCH (09:20)
[2016-08-13] MEDS: risperiDONE 0.5 MG TAB PO SCH ×2 (09:20→23:08)
[2016-08-13] MEDS: busPIRone 5 MG TAB PO SCH ×2 (09:20→23:08)
[2016-08-13] MEDS: IBUPROFEN 400 MG TAB PO PRN ×2 (09:20→19:31)
--- NOTE | 2016-08-13 17:44 | IPNPDOC ---
[facility] Progress Note Progress Note DATE OF SERVICE: 08/13/16 HISTORY: Patient is a 26-year-old female with notable history of previous psychiatric admissions dating back to 2011, was last admitted to [facility] in February 2016 after researching ways to kill herself on the Internet. At time of current admission patient reported depression, suicidal ideation, agitation, and informed the ER that she is homeless and needs a place to stay, added that she is having issues with her DSS worker. Policy Value Calculator met with patient today to assess treatment progress on inpatient unit. Patient was observed to be up out of bed, had attended to ADLs, was easily engaged. Patient indicated she is feeling "much better," describes sleep as "better than ever." Patient rates current anxiety level 8/10 which she stated is related to being homeless, rated depression 0/10, denied suicidal and homicidal ideation, denied audiovisual hallucinations, denied urge to engage in self-injurious behavior. Patient makes no request today for benzodiazepine or stimulant medication. Patient has not utilized PRN Haldol today citing lack of need. Patient indicates addition of Risperdal BID dosing is effective, remains agreeable to transitioning to injectable, reiterates today she has taken medication in the past, medication was effective, and denies medication side effects. Patient is aware Seroquel dose will remain lower and is likely to be further reduced in process of medication cross titration. Patient indicates BuSpar is effective in managing symptoms of anxiety at current dose and denies medication side effects. Patient has been educated on potential medication risks and side effects have been reviewed with patient and patient is aware that renal dosing will be necessary with Risperdal, has verbalized agreement. Prior inquired again today as 2 pain management consult, property underwriter made nursing aware consult still has not been completed. Patient continues to express chronic pain as a major source of psychiatric symptoms, presented with no signs of acute distress at time of interaction. ,VITAL SIGNS: See below. NEW TEST RESULTS: No new results PAST MEDICAL/SURGICAL HISTORY: GERD, vitamin D deficiency, fibromyalgia/chronic pain, polycystic kidney disease, hypothyroid is him, decreased hearing with bilateral hearing aids, scoliosis, chronic back pain. Patient has history of tympanostomy tubes, tonsillectomy, tubal ligation, ORIF left third metacarpal for repair of fracture. Patient has chronic pain, will ask PA to consider referral for pain consult. Labs on admission indicate elevated chloride and TSH, low AST and vitamin D. HCG negative on admission UDS positive for cannabinoids CURRENT MEDICATIONS: See below. MENTAL STATUS EXAMINATION: General appearance: Patient is a 26-year-old female who remains evasive, provides conflicting information, makes fair eye contact, exhibits adequate hygiene, is dressed in hospital clothing, ambulates with steady gait, appears stated age. Patient displays no agitation or hostility today, Speech: Spontaneous, less pressured today, normal rhythm, coherent, of normal volume except when making demands related to medications Thought processes: Goal-directed, no tangentiality noted Thought content: Generally logical and rational Abstract reasoning and computation: Impaired. Description of associations: Intact Description of abnormal or psychotic thoughts: Denies any suicidal or homicidal ideation. Reports audiovisual hallucinations, does not appear to be responding to internal stimuli. No bizarre behavior noted and patient expresses no paranoid ideation Judgment: Poor. Insight: Poor. Orientation: Appears to be alert to situation and oriented to person, place and time of day Recent and remote memory: Appears intact Attention span and concentration: Adequate. Fund of knowledge: Adequate Mood: "I'm feeling pretty good today, just anxious about more than ago when at discharge." Patient appears less depressed, less anxious, no mood lability noted at time of interaction Affect: Constricted DIAGNOSES: Unspecified mood disorder, polysubstance use disorder, rule out bipolar disorder, rule out schizoaffective disorder, rule out IED, rule out personality disorder, rule out substance-induced mood disorder. ADHD per patient report ASSESSMENT: Patient has been visible on unit, attending groups, interacting with select peers. Patient indicates current medication regimen is helpful and denies medication side effects. Patient is on probation and medical review coordinator is attempting communication with lining caser and search and rescue officer to determine appropriate discharge for patient. social media coordinator indicates DSS is also attempting to determine if patient can afford own apartment. social media coordinator is also attempting to procure comprehensive medication list for patient in effort to determine medications which have been effective. Patient indicates she remains open to referral to TLS but only to independent living level, not CR. Will continue Risperdal/Seroquel cross titration as tolerated by patient and will continue BuSpar to address symptoms of anxiety. Patient has been provided with medication information and has been educated on the risks and potential side effects of medications particularly with regard to renal disease, has also been educated on the risks associated with becoming while taking medications, reports she has had tubal ligation. Will monitor patient's response to medications, monitor for side effects, will evaluate for patient safety, resolution of suicidal ideation, and discharge readiness. MANAGEMENT PLAN: Continue Risperdal 0.5 mg po BID with plan to titrate as tolerated by patient, BuSpar 5 mg po BID, Seroquel 300 mg po q hs with plan to taper as tolerated by patient Vitals every 4 hours Maintain safety precautions Will ask PA to consider referral for pain consult Patient to attend groups and participate in unit programming to develop coping strategies Engage patient in discharge planning process and arrange meeting with search and rescue officer and/or support system to ensure safe discharge planning when appropriate Patient to follow up with PCM upon discharge TIME SPENT: 35 minutes. Vital Signs Vital Signs Date Time Temp Pulse Resp B/P Pulse Ox O2 Delivery O2 Flow Rate FiO2 08/13/16 06:26 98.2 89 18 117/72 Room Air Current Medications Current Medications Al Hydrox/Mg Hydrox/Simethicone (Mylanta) 30 ml Q4HP PRN PO HEARTBURN/ INDIGESTION; Start 08/05/16 at 23:00; Stop 09/04/16 at 22:59 Benztropine Mesylate (Cogentin) 1 mg Q6HP PRN PO EPS; Start 08/11/16 at 17:15; Stop 09/10/16 at 17:14 Buspirone HCl (Buspar) 5 mg BID PO Last administered on 08/13/16 09:20; Start 08/12/16 at 21:00; Stop 09/11/16 at 20:59 Clonazepam (KlonoPIN) 0.5 mg TID PO Last administered on 08/10/16 15:29; Start 08/09/16 at 16:00; Stop 08/10/16 at 18:04; Status DC Clonazepam (KlonoPIN) 0.5 mg TIDP PRN PO ANXIETY/AGITATION Last administered on 08/11/16 12:22; Start 08/10/16 at 21:00; Stop 08/11/16 at 17:10; Status DC Haloperidol (Haldol) 2 mg Q6HP PRN PO SEVERE AGITATION Last administered on 18:21; Start 08/11/16 at 17:15; Stop 08/12/16 at 15:36; Status DC Haloperidol (Haldol) 2 mg Q6HP PRN PO SEVERE AGITATION Last administered on 19:06; Start 08/12/16 at 15:45; Stop 08/17/16 at 17:14 Home Med (Med Rec Complete!) ASDIRECTED XX ; Start 08/05/16 at 21:15; Stop at 21:15; Status DC Hydroxyzine HCl (Atarax) 50 mg Q6HP PRN PO ANXIETY Last administered on 21:54; Start 08/08/16 at 21:45; Stop 08/11/16 at 17:10; Status DC Ibuprofen (Advil) 400 mg Q6HP PRN PO PAIN Last administered on 08/13/16 09:20 ; Start 08/05/16 at 23:00; Stop 09/04/16 at 22:59 Levothyroxine Sodium (Synthroid) 0.1 mg DAILY@06 PO Last administered on 06:03; Start 08/07/16 at 06:00; Stop 09/06/16 at 05:59 Magnesium Hydroxide (Milk Of Magnesia) 30 ml DAILYPRN PRN PO CONSTIPATION; Start 08/05/16 at 23:00; Stop 09/04/16 at 22:59 Nicotine (Nicoderm Cq 21mg) 1 patch DAILY TD Last administered on 08/13/16 09: 20; Start 08/06/16 at 09:00; Stop 09/05/16 at 08:59 Quetiapine Fumarate (SEROquel XR) 600 mg QHS PO ; Start 08/06/16 at 21:00; Stop 08/06/16 at 21:00; Status DC Quetiapine Fumarate (SEROquel) 300 mg QHS PO Last administered on 08/12/16 23: 04; Start 08/12/16 at 21:00; Stop 09/11/16 at 20:59 Quetiapine Fumarate (SEROquel) 500 mg QHS PO Last administered on 08/09/16 22: 47; Start 08/09/16 at 21:00; Stop 08/10/16 at 17:59; Status DC Quetiapine Fumarate (SEROquel) 600 mg QHS PO Last administered on 08/08/16 23: 16; Start 08/06/16 at 21:00; Stop 08/09/16 at 14:32; Status DC Quetiapine Fumarate (SEROquel) 600 mg QHS PO Last administered on 08/11/16 21: 57; Start 08/10/16 at 21:00; Stop 08/12/16 at 18:52; Status DC Risperidone (RisperDAL) 0.5 mg BID PO Last administered on 08/13/16 09:20; Start 08/12/16 at 21:00; Stop 09/11/16 at 20:59 Trazodone HCl (Desyrel) 50 mg QHSP PRN PO INSOMNIA Last administered on 00:23; Start 08/05/16 at 23:00; Stop 08/11/16 at 17:10; Status DC Vitamin D (Drisdol) 50,000 units Mo@09 PO Last administered on 08/09/16 15:58 ; Start 08/09/16 at 09:00; Stop 09/08/16 at 08:59 Allergies Coded Allergies: Ziprasidone (Verified Adverse Reaction, Intermediate, Tremors, 08/22/14) Rosanna Mijares Aug 13, 2016 17:44
[2016-08-13 18:00] VITALS: BP 132/88
--- NOTE | 2016-08-13 18:24 | CR.PDOC ---
[facility] Pain Clinic Consultation General Date of Consultation: 08/13/16 Consultation Report For: Ludivina Arciniega Chief Complaint The patient is a 26-year-old female admitted with a reason for visit of DDO. Pain management is asked to see her for her complaints of pain, particularly in noted at the base of the neck, and history of fibromyalgia History of Present Illness Marleny Verduzco is a 26-year-old female who reports that she has been dealing with chronic pain for many years. She is followed by Dr. Christianson and his staff at [facility]. She was seen by Harry bella, CB Ad[facility]. One year ago during a hospital admission. Marleny reports that she has pain all over her body but mostly it affects her joints. States currently her worse pain is at the base of the neck. Describes the pain as sharp, burning, and persistent Home Medications Scheduled Levothyroxine Sodium (Synthroid) 100 Mcg Tab 100 MCG PO DAILY (Reported) Quetiapine Fumerate (Seroquel) 200 Mg Tab 600 MG PO QHS (Reported) Allergies Coded Allergies: Ziprasidone (Verified Adverse Reaction, Intermediate, Tremors, 08/22/14) Past Medical History Medical History Past medical history includes hypothyroidism, polycystic kidney disease followed by Dr. Bonds, ADHD, bipolar disorder, GERD, vitamin D deficiency, chronic back pain and fibromyalgia followed by Dr. Christianson. Social History Social History Denies alcohol, or illicit substance abuse. Does smoke cigarettes currently has NicoDerm patch in place Psychosocial History: Att. deficit disorder, Other (multiple admissions for depression) Review of Systems Subjective Constitutional: Reports: fatigue, Denies: unexplained weight loss HEENT: Reports: head aches (intermittent right-sided headache), Denies: hearing problems, vision problems Skin: Denies: breakdown, lesions, rash Pulmonary: Denies: cough, dyspnea Cardiovascular: Denies: chest pain, edema, palpitations Gastrointestinal: Denies: loss of bowel control Genitourinary: Denies: dysuria, hematuria, loss of bladder control (history of polycystic kidney disease and reports bilateral kidney pain which is intermittent) Hematologic: Denies: blood dyscrasias, easy bleeding, easy bruising Endocrine: Reports: Diabetes mellitus (denies), Thyroid dysfunction (on replacement) Musculoskeletal: Reports: midthoracic pain, muscle pain, muscle stiffness, neck pain, spasms Neurological: Reports: numbness, pre-existing deficit, Denies: seizures, tremors, weakness Psych: Reports: mood normal, other (admits to self injury with contact on left forearm. Reports that she has not taking care of her mental health over the last year and states that she is beginning to feel better with her new medications) Physical Examination Physical Examination Vital Signs/I&O Vital Signs Date Time Temp Pulse Resp B/P Pulse Ox O2 Delivery O2 Flow Rate FiO2 08/13/16 06:26 98.2 89 18 117/72 Room Air ENT EXAM: Positive: normocephalic Neck Exam: Negative: Lymphadenopathy, Thyromegaly Chest Exam: Positive: Clear to auscultation, Negative: Rales, Wheezing Heart Exam: Positive: Normal S1, S2, Regular rate and rhythm, Negative: Murmurs, Rubs Extremity Exam: Negative: Edema Skin Exam: Positive: Dry, Warm, Negative: Lesions, Rashes Neuro Exam: Positive: Muscle Strength U/L Ext., Normal Gait, Normal Tone, Reflexes 2+ Inspection of spine Point tenderness over C7 prominence. Trigger points and tight fibrous bands identified over cervical paraspinous musculature and across the trapezius muscles bilaterally. Decreased range of motion with elevation of the upper extremities. Able to rise easily to a standing position. Postures upright station and gait are normal. No swelling noted of the hand or wrist joints, or over the knees. Assessment 1. Chronic pain syndrome being treated as fibromyalgia. 2. Probable degenerative joint disease. Recommendation and Plan At this time. Patient reports that she had been on fairly low doses of gabapentin at 300 mg twice a day. Today I am noting some muscle spasms across the neck and shoulders. She states that she has been on a muscle relaxer in the past and this has been effective. Would recommend starting her on cyclobenzaprine 5 mg morning and midday and 10 mg at bedtime. If she does well with this could add gabapentin 300 mg twice a day. She is expecting to be discharged in the next few days. She will need to follow-up with Dr. Christianson, and his team for ongoing pain care. Thank you Chavo Demian, for allowing us to participate in the care of your patient, Marleny Solorio. Should you have any questions we will be glad to discuss this with you at any time please contact us here at the pain center at [phone]. Hoa Vargas [facility] Aug 13, 2016 18:24
[2016-08-13] MEDS: HALOPERIDOL 2 MG TAB PO PRN (19:31)
[2016-08-13] MEDS: CYCLOBENZAPRINE 10 MG TAB PO SCH (23:08)
[2016-08-13] MEDS: QUEtiapine FUMARATE 200 MG TAB PO SCH (23:09)
[2016-08-14 06:00] VITALS: BP 92/59
[2016-08-14] MEDS: LEVOTHYROXINE 0.1 MG TAB (100 MCG) PO SCH (06:23)
[2016-08-14] MEDS: NICOTINE 21MG/24HR 1 EA TRANSDERMAL TD SCH (09:39)
[2016-08-14] MEDS: CYCLOBENZAPRINE 5MG TABLET PO SCH ×2 (09:39→13:17)
[2016-08-14] MEDS: risperiDONE 0.5 MG TAB PO SCH ×2 (09:39→22:20)
[2016-08-14] MEDS: busPIRone 5 MG TAB PO SCH ×2 (09:39→22:20)
[2016-08-14] MEDS: HALOPERIDOL 2 MG TAB PO PRN ×2 (13:18→21:29)
[2016-08-14] MEDS: IBUPROFEN 400 MG TAB PO PRN ×2 (16:02→22:20)
[2016-08-14 18:00] VITALS: BP 125/69
[2016-08-14] MEDS: QUEtiapine FUMARATE 200 MG TAB PO SCH (22:19)
[2016-08-14] MEDS: CYCLOBENZAPRINE 10 MG TAB PO SCH (22:20)
[2016-08-15] MEDS: LEVOTHYROXINE 0.1 MG TAB (100 MCG) PO SCH (06:10)
[2016-08-15 06:40] VITALS: BP 99/56
[2016-08-15] MEDS: CYCLOBENZAPRINE 5MG TABLET PO SCH ×2 (09:41→15:19)
[2016-08-15] MEDS: risperiDONE 0.5 MG TAB PO SCH ×2 (09:41→21:23)
[2016-08-15] MEDS: busPIRone 5 MG TAB PO SCH ×2 (09:41→21:23)
[2016-08-15] MEDS: NICOTINE 21MG/24HR 1 EA TRANSDERMAL TD SCH (09:42)
[2016-08-15] MEDS: IBUPROFEN 400 MG TAB PO PRN (09:42)
[2016-08-15] MEDS: HALOPERIDOL 2 MG TAB PO PRN ×2 (11:10→21:23)
[2016-08-15 18:00] VITALS: BP 132/78
[2016-08-15] MEDS: CYCLOBENZAPRINE 10 MG TAB PO SCH (21:23)
[2016-08-15] MEDS: QUEtiapine FUMARATE 200 MG TAB PO SCH (21:23)
[2016-08-16] MEDS: LEVOTHYROXINE 0.1 MG TAB (100 MCG) PO SCH (06:42)
[2016-08-16 06:53] VITALS: BP 124/76
[2016-08-16] MEDS: busPIRone 5 MG TAB PO SCH ×2 (08:32→21:34)
[2016-08-16] MEDS: CYCLOBENZAPRINE 5MG TABLET PO SCH ×2 (08:32→13:27)
[2016-08-16] MEDS: risperiDONE 0.5 MG TAB PO SCH ×2 (08:32→21:34)
[2016-08-16] MEDS: VITAMIN D 50,000 UNITS CAPSULE (ERGOCALCIFEROL 1.25MG) PO SCH (08:32)
[2016-08-16] MEDS: NICOTINE 21MG/24HR 1 EA TRANSDERMAL TD SCH (08:34)
[2016-08-16] MEDS: HALOPERIDOL 2 MG TAB PO PRN (14:48)
--- NOTE | 2016-08-16 16:11 | IPNPDOC ---
[facility] Progress Note Progress Note DATE OF SERVICE: 08/16/16 HISTORY: Patient is a 26-year-old female with notable history of previous psychiatric admissions dating back to 2011, was last admitted to [facility] in February 2016 after researching ways to kill herself on the Internet. At time of current admission patient reported depression, suicidal ideation, agitation, and informed the ER that she is homeless and needs a place to stay, added that she is having issues with her DSS worker. Toll Mechanic met with patient today to assess treatment progress on inpatient unit. Patient was observed to be up out of bed, had attended to ADLs, was easily engaged, reported feeling "annoyed" that she was not being discharged today. Patient denied all anxiety and depression except as related to "still being here, I feel good, I feel like I'm ready to go and try to resolve my housing situation." Patient denied suicidal and homicidal ideation, denied audiovisual hallucinations, denied urge to engage in self-injurious behavior. Patient states she continues to sleep well, feels current medication regimen is effective, denies need for dosing adjustments, and denies medication side effects. Patient has continued to use Haldol PRN intermittently and notes today, "I definitely don't needed after and discharged, it just helps me deal with not having a definitive discharge date and not knowing or undergoing." Patient has been educated on potential medication risks and side effects have been reviewed with patient and patient is aware that renal dosing will remain necessary with Risperdal, has verbalized agreement. Patient continues to attribute majority of psychiatric symptoms to chronic pain, notes she underwent pain consult stating, "she wouldn't even give me gabapentin, she gave me Flexeril and that ain't going to do nothing." Patient verbalizes awareness the pain management recommended she trial Flexeril and may follow-up with outpatient pain management commercial underwriter to evaluate need for the addition of gabapentin. Patient presented with no signs of acute distress at time of interaction. VITAL SIGNS: See below. NEW TEST RESULTS: No new results PAST MEDICAL/SURGICAL HISTORY: GERD, vitamin D deficiency, fibromyalgia/chronic pain, polycystic kidney disease, hypothyroid is him, decreased hearing with bilateral hearing aids, scoliosis, chronic back pain. Patient has history of tympanostomy tubes, tonsillectomy, tubal ligation, ORIF left third metacarpal for repair of fracture. Patient has chronic pain, will ask PA to consider referral for pain consult. Labs on admission indicate elevated chloride and TSH, low AST and vitamin D. HCG negative on admission UDS positive for cannabinoids CURRENT MEDICATIONS: See below. MENTAL STATUS EXAMINATION: General appearance: Patient is a 26-year-old female who presents with noticeably improved mood today, no irritability no agitation, makes good eye contact, presents with adequate personal hygiene, is dressed in hospital clothing, ambulates with steady gait, appears stated age, Speech: Spontaneous, normal rate, rhythm, volume, coherent Thought processes: Goal-directed, no tangentiality noted Thought content: Logical and rational Abstract reasoning and computation: Impaired. Description of associations: Intact Description of abnormal or psychotic thoughts: Denies any suicidal or homicidal ideation. Reports audiovisual hallucinations, does not appear to be responding to internal stimuli. No bizarre behavior noted and patient expresses no paranoid ideation Judgment: Adequate, has improved during treatment Insight: Adequate, has improved during treatment Orientation: Appears to be alert to situation and oriented to person, place and time of day Recent and remote memory: Appears intact Attention span and concentration: Adequate. Fund of knowledge: Adequate Mood: "I'm feeling good, anxious about discharge but better than in a long time and I'm ready to go see [facility] about housing." Patient denied anxiety and depression, no mood lability noted Affect: Constricted but brightens, congruent with mood DIAGNOSES: Unspecified mood disorder, polysubstance use disorder, rule out bipolar disorder, rule out schizoaffective disorder, rule out IED, rule out personality disorder, rule out substance-induced mood disorder. ADHD per patient report ASSESSMENT: Patient has been visible on unit, attending groups, interacting with select peers. Patient indicates current medication regimen is helpful and denies medication side effects, denies need for dosing adjustment and states she will address the use of injectable medication with outpatient provider. Patient indicates she felt "irritated" over the weekend due to being in inpatient setting and feeling "nothing was getting done about my discharge," denies symptoms of irritability and anxiety related to factors other than discharge. Patient states she now feels comfortable with discharge to [facility] to pursue housing, indicates she is capable of going to hotel and following up for outpatient treatment. after school program coordinator is attempting to communicate with heel caser and assurance officer and will be providing DSS information to patient to ensure the patient is provided with housing resources. TLS referral has been completed for independent living level patient indicates she feels appear for discharge and is requesting discharge tomorrow. Patient has been provided with medication information and has been educated on the risks and potential side effects of medications particularly with regard to renal disease , has also been educated on the risks associated with becoming while taking medications, reports she has had tubal ligation. The importance of medication compliance was reviewed with patient who verbalized understanding. Will begin preparing patient for tentative discharge for tomorrow with plan for case management, psychotherapy and medication management services to be provided by [facility]. Patient is also been strongly encouraged to participate substance abuse treatment, is declining at this time. MANAGEMENT PLAN: Continue Risperdal 0.5 mg po BID, BuSpar 5 mg po BID, and Seroquel 300 mg po q hs Maintain safety precautions Will ask PA to consider referral for pain consult - completed Patient to attend groups and participate in unit programming to develop coping strategies Engage patient in discharge planning process and arrange meeting with assurance officer and/or support system to ensure safe discharge planning when appropriate Patient to follow up with PCM and pain management upon discharge TIME SPENT: 35 minutes. Vital Signs Vital Signs Date Time Temp Pulse Resp B/P Pulse Ox O2 Delivery O2 Flow Rate FiO2 08/16/16 06:53 98.2 66 16 124/76 08/13/16 06:26 Room Air Current Medications Current Medications Al Hydrox/Mg Hydrox/Simethicone (Mylanta) 30 ml Q4HP PRN PO HEARTBURN/ INDIGESTION; Start 08/05/16 at 23:00; Stop 09/04/16 at 22:59 Benztropine Mesylate (Cogentin) 1 mg Q6HP PRN PO EPS; Start 08/11/16 at 17:15; Stop 09/10/16 at 17:14 Buspirone HCl (Buspar) 5 mg BID PO Last administered on 08/16/16 08:32; Start 08/12/16 at 21:00; Stop 09/11/16 at 20:59 Clonazepam (KlonoPIN) 0.5 mg TID PO Last administered on 08/10/16 15:29; Start 08/09/16 at 16:00; Stop 08/10/16 at 18:04; Status DC Clonazepam (KlonoPIN) 0.5 mg TIDP PRN PO ANXIETY/AGITATION Last administered on 08/11/16 12:22; Start 08/10/16 at 21:00; Stop 08/11/16 at 17:10; Status DC Cyclobenzaprine HCl (Flexeril) 5 mg BID@09,14 PO Last administered on 08/16/16 13:27; Start 08/14/16 at 09:00; Stop 09/13/16 at 08:59 Cyclobenzaprine HCl (Flexeril) 10 mg QHS PO Last administered on 08/15/16 21:23 ; Start 08/13/16 at 21:00; Stop 09/12/16 at 20:59 Haloperidol (Haldol) 2 mg Q6HP PRN PO SEVERE AGITATION Last administered on 18:21; Start 08/11/16 at 17:15; Stop 08/12/16 at 15:36; Status DC Haloperidol (Haldol) 2 mg Q6HP PRN PO SEVERE AGITATION Last administered on 08/16 14:48; Start 08/12/16 at 15:45; Stop 08/17/16 at 17:14 Home Med (Med Rec Complete!) ASDIRECTED XX ; Start 08/05/16 at 21:15; Stop at 21:15; Status DC Hydroxyzine HCl (Atarax) 50 mg Q6HP PRN PO ANXIETY Last administered on 21:54; Start 08/08/16 at 21:45; Stop 08/11/16 at 17:10; Status DC Ibuprofen (Advil) 400 mg Q6HP PRN PO PAIN Last administered on 08/15/16 09:42; Start 08/05/16 at 23:00; Stop 09/04/16 at 22:59 Levothyroxine Sodium (Synthroid) 0.1 mg DAILY@06 PO Last administered on 06:42; Start 08/07/16 at 06:00; Stop 09/06/16 at 05:59 Magnesium Hydroxide (Milk Of Magnesia) 30 ml DAILYPRN PRN PO CONSTIPATION; Start 08/05/16 at 23:00; Stop 09/04/16 at 22:59 Nicotine (Nicoderm Cq 21mg) 1 patch DAILY TD Last administered on 08/16/16 08: 34; Start 08/06/16 at 09:00; Stop 09/05/16 at 08:59 Quetiapine Fumarate (SEROquel XR) 600 mg QHS PO ; Start 08/06/16 at 21:00; Stop 08/06/16 at 21:00; Status DC Quetiapine Fumarate (SEROquel) 300 mg QHS PO Last administered on 08/15/16 21: 23; Start 08/12/16 at 21:00; Stop 09/11/16 at 20:59 Quetiapine Fumarate (SEROquel) 500 mg QHS PO Last administered on 08/09/16 22: 47; Start 08/09/16 at 21:00; Stop 08/10/16 at 17:59; Status DC Quetiapine Fumarate (SEROquel) 600 mg QHS PO Last administered on 08/08/16 23: 16; Start 08/06/16 at 21:00; Stop 08/09/16 at 14:32; Status DC Quetiapine Fumarate (SEROquel) 600 mg QHS PO Last administered on 08/11/16 21: 57; Start 08/10/16 at 21:00; Stop 08/12/16 at 18:52; Status DC Risperidone (RisperDAL) 0.5 mg BID PO Last administered on 08/16/16 08:32; Start 08/12/16 at 21:00; Stop 09/11/16 at 20:59 Trazodone HCl (Desyrel) 50 mg QHSP PRN PO INSOMNIA Last administered on 00:23; Start 08/05/16 at 23:00; Stop 08/11/16 at 17:10; Status DC Vitamin D (Drisdol) 50,000 units Mo@09 PO Last administered on 08/16/16 08:32; Start 08/09/16 at 09:00; Stop 09/08/16 at 08:59 Allergies Coded Allergies: Ziprasidone (Verified Adverse Reaction, Intermediate, Tremors, 08/22/14) Rosanna Mijares Aug 16, 2016 16:11
[2016-08-16 18:00] VITALS: BP 130/89
[2016-08-16] MEDS: CYCLOBENZAPRINE 10 MG TAB PO SCH (21:34)
[2016-08-16] MEDS: QUEtiapine FUMARATE 200 MG TAB PO SCH (21:34)
[2016-08-17 06:06] VITALS: BP 136/75
[2016-08-17] MEDS: LEVOTHYROXINE 0.1 MG TAB (100 MCG) PO SCH (06:16)
[2016-08-17] MEDS: NICOTINE 21MG/24HR 1 EA TRANSDERMAL TD SCH (09:00)
[2016-08-17] MEDS: busPIRone 5 MG TAB PO SCH (09:41)
[2016-08-17] MEDS: CYCLOBENZAPRINE 5MG TABLET PO SCH (09:41)
[2016-08-17] MEDS: risperiDONE 0.5 MG TAB PO SCH (09:41)
[2016-08-17] MEDS ORDERED: CYCL5TA PO (10:26)
[2016-08-17] MEDS ORDERED: QUET1TAB9 PO (11:48)
[2016-08-17] MEDS ORDERED: BUSP5TA PO (11:48)
[2016-08-17] MEDS ORDERED: RISP0.5T16 PO (11:48)
[2016-08-17] MEDS ORDERED: SERO1TAB2 PO (11:59)
[2016-08-17] MEDS ORDERED: ERGO500014 PO (12:21)
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
== END 2016-08-17 12:30 | disposition home or self-care (01) | DRG 753 ==
LOC: M ED 14:16 → M ED INP 19:16 → M PSY 21:57
PROVIDERS: ADMIT Psychiatry & Neurology Child & Adolescent Psychiatry; ATTEND Psychiatry & Neurology Child & Adolescent Psychiatry
DX: F31.9 Bipolar disorder, unspecified (principal); K21.9 Gastro-esophageal reflux disease without esophagitis; E55.9 Vitamin D deficiency, unspecified; M79.7 Fibromyalgia; E03.9 Hypothyroidism, unspecified; Q61.3 Polycystic kidney, unspecified; F25.9 Schizoaffective disorder, unspecified; Z79.899 Other long term (current) drug therapy; Z88.8 Allergy status to other drugs, medicaments and biological substances; F17.200 Nicotine dependence, unspecified, uncomplicated; F90.9 Attention-deficit hyperactivity disorder, unspecified type

== ENCOUNTER 2016-09-28 04:24 | Emergency (ER) | payer MEDICARE ==
[~2016-09-28] VITALS: Ht 167.6 cm; Wt 90.7 kg
[~2016-09-28 04:24] MED LIST changes: +BUSP5TA PO; +CYCL5TA PO; +ERGO500014 PO; +RISP0.5T16 PO; +SERO200T PO
[2016-09-28 04:34] VITALS: BP 112/75
== END 2016-09-28 08:20 | disposition home or self-care (01) ==
LOC: M ED 07:48
DX: S00.93XA Contusion of unspecified part of head, initial encounter (principal); Y04.0XXA Assault by unarmed brawl or fight, initial encounter; Y92.019 Unspecified place in single-family (private) house as the place of occurrence of the external cause; Y93.89 Activity, other specified; Y99.8 Other external cause status; F31.9 Bipolar disorder, unspecified; J45.909 Unspecified asthma, uncomplicated; E07.9 Disorder of thyroid, unspecified; Q61.3 Polycystic kidney, unspecified; F17.200 Nicotine dependence, unspecified, uncomplicated; Z79.899 Other long term (current) drug therapy; Z88.8 Allergy status to other drugs, medicaments and biological substances; Z91.09 Other allergy status, other than to drugs and biological substances

== ENCOUNTER 2017-07-04 21:03 | Emergency (ER) | payer MEDICARE | END 2017-07-04 22:21 | disposition left against medical advice (07) | LOC: M ED 21:03 | DX: Z53.29 Procedure and treatment not carried out because of patient's decision for other reasons (principal) ==

== ENCOUNTER 2017-07-26 15:41 | Emergency (ER) | payer MEDICARE ==
[2017-07-26 17:55] LABS: BASO # 0.1 10^3/uL (0.0-0.2); BASO % 0.4 % (0.0-1.0); EOS # 0.2 10^3/uL (0.0-0.50); EOS % 1.7 % (0.0-3.0); HEMATOCRIT 39.3 % (36.0-47.0); HEMOGLOBIN 13.4 g/dl (12.0-16.0); IMMATURE GRANULOCYTE % 0.2 % (0-3.0); LYMPH # 2.6 10^3/uL (1.5-6.5); LYMPH % 21.4 % (24.0-44.0); MEAN CORPUSCULAR HEMOGLOBIN 29.9 pg (27.0-33.0); MEAN CORPUSCULAR HGB CONC 34.1 g/dl (32.0-36.5); MEAN CORPUSCULAR VOLUME 87.7 fl (80.0-96.0); MONO # 0.6 10^3/uL (0.0-0.8); MONO % 4.6 % (0.0-5.0); NEUTROPHILS # 8.6 10^3/uL (1.8-7.7); NEUTROPHILS % 71.7 % (36.0-66.0); PLATELET COUNT, AUTOMATED 245 10^3/uL (150-450); RED BLOOD COUNT 4.48 10^6/uL (4.00-5.40)
[2017-07-26 18:17] LABS: CONTROL LINE MONO INT CTR LINE PRESENT; MONO SCRN NEGATIVE (NEGATIVE)
[2017-07-26 18:35] LABS: ALBUMIN 3.7 GM/DL (3.2-5.2); ALBUMIN/GLOBULIN RATIO 1.12 (1.00-1.93); ALKALINE PHOSPHATASE 75 U/L (45-117); ALT/SGPT 17 U/L (12-78); ANION GAP 8 MEQ/L (8-16); AST/SGOT 12 U/L (7-37); BILIRUBIN,DIRECT 0.1 MG/DL (0.0-0.2); BILIRUBIN,TOTAL 0.4 MG/DL (0.2-1.0); BLOOD UREA NITROGEN 17 MG/DL (7-18); CALCIUM LEVEL 8.6 MG/DL (8.5-10.1); CARBON DIOXIDE LEVEL 25 MEQ/L (21-32); CHLORIDE LEVEL 107 MEQ/L (98-107); CREATININE FOR GFR 0.83 MG/DL (0.55-1.30); FREE THYROXINE INDEX 3.5 % (1.3-4.8); GLOMERULAR FILTRATION RATE > 60.0 (>60); GLUCOSE, FASTING 115 MG/DL (70-100); POTASSIUM SERUM 3.7 MEQ/L (3.5-5.1); SODIUM LEVEL 140 MEQ/L (136-145); T UPTAKE 33 % (30-39); THYROXINE (T4) 10.7 UG/DL (4.5-12.0)
== END 2017-07-26 19:06 | disposition home or self-care (01) ==
LOC: M ED 15:41
DX: J02.9 Acute pharyngitis, unspecified (principal); E03.9 Hypothyroidism, unspecified; M25.561 Pain in right knee; M79.7 Fibromyalgia; R56.9 Unspecified convulsions; J45.909 Unspecified asthma, uncomplicated; K21.9 Gastro-esophageal reflux disease without esophagitis; Q61.3 Polycystic kidney, unspecified; M54.5 Low back pain; F41.9 Anxiety disorder, unspecified; F17.200 Nicotine dependence, unspecified, uncomplicated; Z91.89 Other specified personal risk factors, not elsewhere classified; Z88.8 Allergy status to other drugs, medicaments and biological substances
CPT/HCPCS: 73564

== ENCOUNTER 2017-08-02 14:40 | Emergency (ER) | payer MEDICARE, MEDICAID ==
[2017-08-02] MEDS: NS 1,000 ML IV (16:20)
[2017-08-02] MEDS: diphenhydrAMINE INJ 50MG/ML VIAL (J1200) IV (16:20)
== END 2017-08-02 18:05 | disposition home or self-care (01) ==
LOC: M ED 14:40
DX: G24.01 Drug induced subacute dyskinesia (principal); T43.4X5A Adverse effect of butyrophenone and thiothixene neuroleptics, initial encounter; F25.0 Schizoaffective disorder, bipolar type; F43.10 Post-traumatic stress disorder, unspecified; G40.909 Epilepsy, unspecified, not intractable, without status epilepticus; E07.9 Disorder of thyroid, unspecified; K21.9 Gastro-esophageal reflux disease without esophagitis; Z91.048 Other nonmedicinal substance allergy status; Z88.8 Allergy status to other drugs, medicaments and biological substances; F17.210 Nicotine dependence, cigarettes, uncomplicated; Z79.899 Other long term (current) drug therapy
CPT/HCPCS: J1200

== ENCOUNTER 2017-08-06 01:18 | Emergency (ER) | payer MEDICARE, MEDICAID ==
[2017-08-06 02:43] LABS: BASO # 0.1 10^3/uL (0.0-0.2); BASO % 0.3 % (0.0-1.0); EOS # 0.1 10^3/uL (0.0-0.50); EOS % 0.6 % (0.0-3.0); HEMATOCRIT 43.6 % (36.0-47.0); IMMATURE GRANULOCYTE % 0.4 % (0-3.0); LYMPH # 2.9 10^3/uL (1.5-6.5); MEAN CORPUSCULAR HEMOGLOBIN 30.2 pg (27.0-33.0); MEAN CORPUSCULAR HGB CONC 34.4 g/dl (32.0-36.5); MEAN CORPUSCULAR VOLUME 87.9 fl (80.0-96.0); MONO # 0.6 10^3/uL (0.0-0.8); MONO % 2.8 % (0.0-5.0); NEUTROPHILS # 15.6 10^3/uL (1.8-7.7); NEUTROPHILS % 80.9 % (36.0-66.0); PLATELET COUNT, AUTOMATED 297 10^3/uL (150-450); RED BLOOD COUNT 4.96 10^6/uL (4.00-5.40); RED CELL DISTRIBUTION WIDTH 12.5 % (11.5-14.5); WHITE BLOOD COUNT 19.3 10^3/uL (4.0-10.0)
[2017-08-06] MEDS: MORPHINE 4 MG/ML 1ML VIAL (J2270) IV (03:00)
[2017-08-06] MEDS: KETOROLAC 30 MG/ML VIAL (J1885) IV (03:00)
[2017-08-06] MEDS: ONDANSETRON 4MG/2ML VIAL (J2405) IV ×2 (03:00→05:15)
[2017-08-06 03:02] LABS: CONTROL LINE HCG INT CTR LINE PRESENT; HCG, SERUM QUALITATIVE NEGATIVE (NEGATIVE)
[2017-08-06 03:09] LABS: ALBUMIN 4.5 GM/DL (3.2-5.2); ALBUMIN/GLOBULIN RATIO 0.96 (1.00-1.93); ALKALINE PHOSPHATASE 85 U/L (45-117); ALT/SGPT 26 U/L (12-78); ANION GAP 8 MEQ/L (8-16); AST/SGOT 12 U/L (7-37); BILIRUBIN,DIRECT 0.2 MG/DL (0.0-0.2); BILIRUBIN,TOTAL 0.5 MG/DL (0.2-1.0); BLOOD UREA NITROGEN 13 MG/DL (7-18); CALCIUM LEVEL 9.3 MG/DL (8.5-10.1); CARBON DIOXIDE LEVEL 25 MEQ/L (21-32); CHLORIDE LEVEL 104 MEQ/L (98-107); CREATININE FOR GFR 0.85 MG/DL (0.55-1.30); GLOMERULAR FILTRATION RATE > 60.0 (>60); GLUCOSE, FASTING 87 MG/DL (70-100); LIPASE 442 U/L (73-393); POTASSIUM SERUM 3.1 MEQ/L (3.5-5.1); SODIUM LEVEL 137 MEQ/L (136-145); TOTAL PROTEIN 9.2 GM/DL (6.4-8.2)
[2017-08-06] MEDS: NS 1,000 ML IV (03:17)
[2017-08-06 03:38] LABS: KETONE, URINE AUTO RFX NEGATIVE (NEGATIVE); MUCUS, URINE RFX SMALL (NEGATIVE); NITRITE, URINE AUTO RFX NEGATIVE (NEGATIVE); RBC, URINE AUTO RFX 5 /HPF (0-3); SPECIFIC GRAVITY UR AUTO RFX 1.005 (1.002-1.035); SQUAM EPITHELIAL CELL UR AURFX 7 /HPF (0-6)
[2017-08-06 03:56] LABS: LEUKOCYTE ESTERASE UR AUTO RFX 1+ (NEGATIVE); WBC, URINE AUTO RFX 50 /HPF (0-3)
[2017-08-06] MEDS: ACETAMINOPHEN TAB 650MG DOSE (2X325MG) PO (06:31)
[2017-08-06] MEDS: CIPROFLOXACIN 500 MG TAB PO (06:31)
== END 2017-08-06 06:38 | disposition home or self-care (01) ==
LOC: M ED 01:18
DX: N10 Acute pyelonephritis (principal); N28.9 Disorder of kidney and ureter, unspecified; Z87.442 Personal history of urinary calculi; Z79.899 Other long term (current) drug therapy; Z88.8 Allergy status to other drugs, medicaments and biological substances; Z91.048 Other nonmedicinal substance allergy status; F17.210 Nicotine dependence, cigarettes, uncomplicated
CPT/HCPCS: J2270

== ENCOUNTER → 2017-09-12 | Outpatient (REF) | payer MEDICARE, MEDICAID ==
[2017-09-12 19:25] LABS: BASO % 0.6 % (0.0-1.0); EOS # 0.3 10^3/uL (0.0-0.50); HEMATOCRIT 37.7 % (36.0-47.0); HEMOGLOBIN 12.8 g/dl (12.0-15.5); IMMATURE GRANULOCYTE % 0.1 % (0-3.0); LYMPH # 2.7 10^3/uL (1.5-6.5); LYMPH % 39.7 % (24.0-44.0); MEAN CORPUSCULAR VOLUME 88.5 fl (80.0-96.0); MONO # 0.5 10^3/uL (0.0-0.8); MONO % 7.6 % (0.0-5.0); NEUTROPHILS # 3.2 10^3/uL (1.8-7.7); PLATELET COUNT, AUTOMATED 244 10^3/uL (150-450); RED BLOOD COUNT 4.26 10^6/uL (4.00-5.40); RED CELL DISTRIBUTION WIDTH 13.2 % (11.5-14.5); WHITE BLOOD COUNT 6.7 10^3/uL (4.0-10.0)
[2017-09-12 19:42] LABS: ESTIMATED AVERAGE GLUCOSE 88 MG/DL (60-110); HEMOGLOBIN A1c 4.7 %
[2017-09-12 19:45] LABS: ERYTHROCYTE SEDIMENTATION RATE 8 mm/hr (0-20)
[2017-09-12 19:49] LABS: ALBUMIN 3.8 GM/DL (3.2-5.2); ALBUMIN/GLOBULIN RATIO 1.15 (1.00-1.93); ALKALINE PHOSPHATASE 62 U/L (45-117); ALT/SGPT 14 U/L (12-78); ANION GAP 11 MEQ/L (8-16); AST/SGOT 8 U/L (7-37); BILIRUBIN,TOTAL 0.3 MG/DL (0.2-1.0); BLOOD UREA NITROGEN 14 MG/DL (7-18); C REACTIVE PROTEIN QUANTITATIV < 0.30 MG/DL (0.00-0.30); CALCIUM LEVEL 8.3 MG/DL (8.5-10.1); CARBON DIOXIDE LEVEL 23 MEQ/L (21-32); CHLORIDE LEVEL 110 MEQ/L (98-107); CHOLESTEROL LEVEL 149 MG/DL (<200); CHOLESTEROL RISK RATIO 4.257 (<5); CREATININE FOR GFR 0.85 MG/DL (0.55-1.30); GLOMERULAR FILTRATION RATE > 60.0 (>60); GLUCOSE, FASTING 64 MG/DL (70-100); HDL CHOLESTEROL 35 MG/DL (>40); LDL CHOLESTEROL 95.8 MG/DL (<100); NON-HDL-C 114 MG/DL; POTASSIUM SERUM 3.9 MEQ/L (3.5-5.1); RHEUMATOID FACTOR QUANT < 10.0 IU/ML (<15.0); SODIUM LEVEL 144 MEQ/L (136-145); TOTAL PROTEIN 7.1 GM/DL (6.4-8.2); TRIGLYCERIDES LEVEL 91 MG/DL (<150)
[2017-09-12 19:54] LABS: TOTAL 25(OH) VITAMIN D 16.2 NG/ML (30.0-100.0)
[2017-09-12 20:34] LABS: HEPATITIS C VIRUS ABY INDEX 0.1 INDEX (<0.8); HIV 1&2 SCREEN CENTAUR NEGATIVE (NEGATIVE)
== END ==
LOC: M LAB REF 19:02
DX: Z00.00 Encounter for general adult medical examination without abnormal findings (principal); Q61.3 Polycystic kidney, unspecified; E78.5 Hyperlipidemia, unspecified; Z13.1 Encounter for screening for diabetes mellitus; E03.9 Hypothyroidism, unspecified; E55.9 Vitamin D deficiency, unspecified; M19.90 Unspecified osteoarthritis, unspecified site; Z79.899 Other long term (current) drug therapy
CPT/HCPCS: 84443

== ENCOUNTER 2017-10-09 19:58 | Inpatient (IN) | payer MEDICARE, MEDICAID ==
[2017-10-09] MEDS: NS 1,000 ML IV ×2 (20:30→23:45)
[2017-10-09] MEDS: LORazepam 2 MG/ML VIAL (J2060) IV (20:35)
[2017-10-09 20:50] LABS: MEAN CORPUSCULAR VOLUME 85.7 fl (80.0-96.0); PLATELET COUNT, AUTOMATED 246 10^3/uL (150-450); RED BLOOD COUNT 4.67 10^6/uL (4.00-5.40); RED CELL DISTRIBUTION WIDTH 13.4 % (11.5-14.5); WHITE BLOOD COUNT 12.2 10^3/uL (4.0-10.0)
[2017-10-09 21:11] LABS: CONTROL LINE HCG INT CTR LINE PRESENT; HCG, SERUM QUALITATIVE NEGATIVE (NEGATIVE)
[2017-10-09 21:20] LABS: ACETAMINOPHEN LEVEL < 2.0 UG/ML (10.0-30.0); ALBUMIN 4.2 GM/DL (3.2-5.2); ALKALINE PHOSPHATASE 69 U/L (45-117); ALT/SGPT 25 U/L (12-78); ANION GAP 17 MEQ/L (8-16); AST/SGOT 19 U/L (7-37); BILIRUBIN,DIRECT 0.3 MG/DL (0.0-0.2); BLOOD UREA NITROGEN 11 MG/DL (7-18); CALCIUM LEVEL 8.9 MG/DL (8.5-10.1); CARBON DIOXIDE LEVEL 16 MEQ/L (21-32); CHLORIDE LEVEL 107 MEQ/L (98-107); CREATININE FOR GFR 1.26 MG/DL (0.55-1.30); ETHYL ALCOHOL (ETHANOL) < 0.003 % (0.000-0.010); GLOMERULAR FILTRATION RATE 54.2 (>60); GLUCOSE, FASTING 90 MG/DL (70-100); POTASSIUM SERUM 3.3 MEQ/L (3.5-5.1); SALICYLATE LEVEL 4.6 MG/DL (5.0-30.0); SODIUM LEVEL 140 MEQ/L (136-145); TOTAL PROTEIN 7.7 GM/DL (6.4-8.2)
[2017-10-09 22:43] LABS: AMPHETAMINES LEVEL URINE POSITIVE (NEGATIVE); BARBITURATES URINE NEGATIVE (NEGATIVE); BENZODIAZEPINES URINE NEGATIVE (NEGATIVE); CANNABINOIDS URINE POSITIVE (NEGATIVE); METHADONE URINE NEGATIVE (NEGATIVE); OPIATES URINE NEGATIVE (NEGATIVE); PHENCYCLIDINE URINE NEGATIVE (NEGATIVE)
[2017-10-09 22:44] LABS: COCAINE METABOLITE URINE POSITIVE (NEGATIVE)
[2017-10-09] MEDS ORDERED: BISACODYL 10 MG SUPP PR (23:45)
[2017-10-10 01:15] LABS: TROPONIN I < 0.02 NG/ML (< 0.10)
[2017-10-10] MEDS: ONDANSETRON 4MG/2ML VIAL (J2405) IV (03:19)
[2017-10-10] MEDS: ACETAMINOPHEN TAB 650MG DOSE (2X325MG) PO (03:39)
[2017-10-10] MEDS: NS 1,000 ML IV (04:38)
[2017-10-10] MEDS: NITROGLYCERIN 0.3 MG SUBL TAB SL (05:15)
[2017-10-10] MEDS: NITROGLYCERIN 0.4 MG SUBL TABLET SL (05:30)
[2017-10-10] MEDS: HEPARIN SOD (PORCINE) 5000 UNITS/ML VIAL SC (05:42)
[2017-10-10 05:47] LABS: BASO % 0.4 % (0.0-1.0); EOS # 0.1 10^3/uL (0.0-0.50); EOS % 1.6 % (0.0-3.0); HEMATOCRIT 38.7 % (36.0-47.0); IMMATURE GRANULOCYTE % 0.2 % (0-3.0); LYMPH # 1.9 10^3/uL (1.5-6.5); LYMPH % 23.7 % (24.0-44.0); MEAN CORPUSCULAR HEMOGLOBIN 29.7 pg (27.0-33.0); MEAN CORPUSCULAR HGB CONC 33.6 g/dl (32.0-36.5); MEAN CORPUSCULAR VOLUME 88.6 fl (80.0-96.0); MONO # 0.6 10^3/uL (0.0-0.8); MONO % 7.3 % (0.0-5.0); NEUTROPHILS # 5.5 10^3/uL (1.8-7.7); NEUTROPHILS % 66.8 % (36.0-66.0); PLATELET COUNT, AUTOMATED 203 10^3/uL (150-450); RED BLOOD COUNT 4.37 10^6/uL (4.00-5.40); RED CELL DISTRIBUTION WIDTH 13.5 % (11.5-14.5); WHITE BLOOD COUNT 8.2 10^3/uL (4.0-10.0)
[2017-10-10 06:10] LABS: TROPONIN I < 0.02 NG/ML (< 0.10)
[2017-10-10 06:22] LABS: ANION GAP 13 MEQ/L (8-16); BLOOD UREA NITROGEN 9 MG/DL (7-18); CALCIUM LEVEL 7.8 MG/DL (8.5-10.1); CARBON DIOXIDE LEVEL 15 MEQ/L (21-32); CHLORIDE LEVEL 116 MEQ/L (98-107); CREATININE FOR GFR 0.91 MG/DL (0.55-1.30); GLOMERULAR FILTRATION RATE > 60.0 (>60); GLUCOSE, FASTING 69 MG/DL (70-100); POTASSIUM SERUM 4.1 MEQ/L (3.5-5.1); SODIUM LEVEL 144 MEQ/L (136-145)
[2017-10-10 08:27] LABS: TROPONIN I < 0.02 NG/ML (< 0.10)
== END 2017-10-10 08:56 | disposition home or self-care (01) | DRG 313 ==
LOC: M ED INP 23:45 → M ED 19:58
DX: R07.2 Precordial pain (principal); F14.10 Cocaine abuse, uncomplicated; F12.10 Cannabis abuse, uncomplicated; F15.10 Other stimulant abuse, uncomplicated; N18.3 Chronic kidney disease, stage 3 (moderate); J01.00 Acute maxillary sinusitis, unspecified; Z88.8 Allergy status to other drugs, medicaments and biological substances

== ENCOUNTER 2017-10-10 15:12 | Emergency (ER) | payer MEDICARE, MEDICAID | END 2017-10-10 17:20 | disposition left against medical advice (07) | LOC: M ED 15:12 | DX: Z53.29 Procedure and treatment not carried out because of patient's decision for other reasons (principal) ==

== ENCOUNTER 2018-04-13 12:24 | Emergency (ER) | payer MEDICARE, MEDICAID ==
[~2018-04-13] VITALS: Ht 167.6 cm; Wt 72.7 kg
[~2018-04-13 12:24] MED LIST changes: +BENA25TA10 PO; +CIPR-249 PO; -CLON0.5T PO; +CLON0.5T8 PO; -CYCL5TA PO; +CYCL5TAB PO; +HALD5INJ2 IM; +LAMO25CH6 PO; -MACR100C3 PO; +MACR100C43 PO; -OLAN20TA PO; +OLAN20TA14 PO; +PATIENT COMMENTS; -QUET20XRTB PO; -RISP0.5T16 PO; +RISP0.5T21 PO; +RISP1TAB42 PO; -RISP3TAB18 PO; +RISP3TAB20 PO; +SERO200T43 PO; -SKEL-29 PO; +SKEL800T97 PO; +TRAZ-160 PO; +TRAZ-163 PO; -TRAZ100T4 PO; -TRAZ50TA4 PO; -ULTR50TA PO; +ULTR50TA8 PO; +VITA-110 PO; -VITA400C29 PO; -VITA50003 PO; +VITA50005 PO; -[UNRECOGNIZED DRUG - CODE] PO
[2018-04-13 14:45] LABS: BASO % 0.2 % (0.0-1.0); EOS % 0.1 % (0.0-3.0); HEMATOCRIT 40.2 % (36.0-47.0); LYMPH # 1.5 10^3/uL (1.5-6.5); LYMPH % 13.1 % (24.0-44.0); MEAN CORPUSCULAR HEMOGLOBIN 31.1 pg (27.0-33.0); MEAN CORPUSCULAR HGB CONC 34.8 g/dl (32.0-36.5); MEAN CORPUSCULAR VOLUME 89.3 fl (80.0-96.0); MONO # 0.7 10^3/uL (0.0-0.8); MONO % 6.1 % (0.0-5.0); NEUTROPHILS % 80.2 % (36.0-66.0); PLATELET COUNT, AUTOMATED 276 10^3/uL (150-450); WHITE BLOOD COUNT 11.2 10^3/uL (4.0-10.0)
[2018-04-13] MEDS: METOCLOPRAMIDE INJ 10MG/2ML VIAL (J2765) IV ONE (14:45)
[2018-04-13 14:53] LABS: BLOOD UREA NITROGEN 15 MG/DL (7-18); CALCIUM LEVEL 8.8 MG/DL (8.5-10.1); CARBON DIOXIDE LEVEL 24 MEQ/L (21-32); CHLORIDE LEVEL 105 MEQ/L (98-107); CREATININE FOR GFR 0.83 MG/DL (0.55-1.30); GLOMERULAR FILTRATION RATE > 60.0 (>60); GLUCOSE, FASTING 88 MG/DL (70-100); POTASSIUM SERUM 3.5 MEQ/L (3.5-5.1); SODIUM LEVEL 139 MEQ/L (136-145)
[2018-04-13] MEDS ORDERED: ZOFR4TAB14 PO (15:47)
[2018-04-13] MEDS ORDERED: BACT800T5 PO (15:47)
--- NOTE | 2018-04-13 15:54 | REP ---
AP PORTABLE CHEST: 04/13/2018. Clinical history: Preoperative status. Comparison: 10/09/2017 Findings: Lung gomez are well inflated. There is no infiltrate, effusion, atelectasis or mass. Cardiomediastinal silhouette is normal for portable technique. The aorta and airway intact. Bones unremarkable. Impression: 1. Negative portable chest. Stable exam. Electronically Signed by Narciso Schultz MD 04/13/2018 05:31 P
[2018-04-13 16:31] VITALS: BP 129/80
--- NOTE | 2018-04-15 05:57 | ECGEPIP ---
Stationary ECG Study [facility] - ED Test Date: 2018-04-13 Pat Name: GABINO CABELLO Department: Room: - Gender: F Gun Numberer: sb : 1990 Requested By: KAYLA Anaya Order Number: [id number] Reading MD: Scott Bennett Measurements Intervals [place] Rate: 82 P: 60 IL: 152 QRS: 17 QRSD: 104 T: 26 QT: 427 QTc: 499 Interpretive Statements SINUS RHYTHM SIMILAR TO 10/10/17 Electronically Signed On 04-15-2018 5:57:29 EST by Scott Bennett
== END 2018-04-13 16:41 | disposition home or self-care (01) ==
LOC: M ED 12:24 → EDBD 12:24 → M ED 16:41
DX: L03.113 Cellulitis of right upper limb (principal); Q61.2 Polycystic kidney, adult type; F19.10 Other psychoactive substance abuse, uncomplicated; Z88.8 Allergy status to other drugs, medicaments and biological substances; Z91.048 Other nonmedicinal substance allergy status; F17.210 Nicotine dependence, cigarettes, uncomplicated
CPT/HCPCS: 71045; 80048; 85025; 93005; 96374; 99284; J2765

== ENCOUNTER → 2018-05-04 | Outpatient (REF) | payer MEDICARE, MEDICAID ==
[~2018-05-04] MED LIST changes: +LEVO100T5; +ZOFR4TAB14 PO
[2018-05-04 17:08] LABS: BASO % 0.4 % (0.0-1.0); EOS # 0.1 10^3/uL (0.0-0.50); EOS % 1.3 % (0.0-3.0); HEMATOCRIT 40.5 % (36.0-47.0); HEMOGLOBIN 13.8 g/dl (12.0-15.5); LYMPH # 2.2 10^3/uL (1.5-6.5); LYMPH % 26.6 % (24.0-44.0); MEAN CORPUSCULAR HEMOGLOBIN 31.2 pg (27.0-33.0); MEAN CORPUSCULAR HGB CONC 34.1 g/dl (32.0-36.5); MEAN CORPUSCULAR VOLUME 91.4 fl (80.0-96.0); MONO # 0.7 10^3/uL (0.0-0.8); MONO % 8.8 % (0.0-5.0); NEUTROPHILS # 5.1 10^3/uL (1.8-7.7); NEUTROPHILS % 62.7 % (36.0-66.0); PLATELET COUNT, AUTOMATED 285 10^3/uL (150-450); RED BLOOD COUNT 4.43 10^6/uL (4.00-5.40); WHITE BLOOD COUNT 8.2 10^3/uL (4.0-10.0)
[2018-05-04 17:18] LABS: ALBUMIN 3.5 GM/DL (3.2-5.2); ALT/SGPT 48 U/L (12-78); BILIRUBIN,TOTAL 0.3 MG/DL (0.2-1.0); BLOOD UREA NITROGEN 13 MG/DL (7-18); CALCIUM LEVEL 8.2 MG/DL (8.5-10.1); CARBON DIOXIDE LEVEL 26 MEQ/L (21-32); CHLORIDE LEVEL 107 MEQ/L (98-107); CHOLESTEROL LEVEL 91 MG/DL (<200); CHOLESTEROL RISK RATIO 2.843 (<5); CREATININE FOR GFR 0.91 MG/DL (0.55-1.30); GLOMERULAR FILTRATION RATE > 60.0 (>60); GLUCOSE, FASTING 69 MG/DL (70-100); HDL CHOLESTEROL 32 MG/DL (>40); LDL CHOLESTEROL 27 MG/DL (<100); NON-HDL-C 59 MG/DL; POTASSIUM SERUM 4.3 MEQ/L (3.5-5.1); SODIUM LEVEL 141 MEQ/L (136-145); TOTAL 25(OH) VITAMIN D 14.4 NG/ML (30.0-100.0); TOTAL PROTEIN 6.8 GM/DL (6.4-8.2); TRIGLYCERIDES LEVEL 158 MG/DL (<150)
[2018-05-04 17:19] LABS: AMORPHOUS SEDIMENT SMALL (NEGATIVE); APPEARANCE, URINE CLOUDY (CLEAR); BACTERIA, URINE AUTO 2+ (NEGATIVE); BILIRUBIN, URINE AUTO NEGATIVE (NEGATIVE); BLOOD, URINE BLOOD NEGATIVE (NEGATIVE); COLOR, URINE YELLOW (YELLOW); GLUCOSE, URINE (UA) AUTO NEGATIVE (NEGATIVE); KETONE, URINE AUTO NEGATIVE (NEGATIVE); LEUKOCYTE ESTERASE, URINE AUTO 3+ (NEGATIVE); MUCUS, URINE SMALL (NEGATIVE); NITRITE, URINE AUTO NEGATIVE (NEGATIVE); PROTEIN, URINE AUTO 2+ mg/dL (NEGATIVE); RBC, URINE AUTO 0 /HPF (0-3); SPECIFIC GRAVITY URINE AUTO 1.018 (1.002-1.035); SQUAMOUS EPITHELIAL CELL UR AU 24 /HPF (0-6); UROBILINOGEN, URINE AUTO 0.2 mg/dL (0.0-2.0); WBC, URINE AUTO TNTC /HPF (0-3)
[2018-05-04 21:08] LABS: CHLAMYDIA DNA AMPLIFICATION NEGATIVE (NEGATIVE); GC DNA AMPLIFICATION NEGATIVE (NEGATIVE)
[2018-05-12 14:14] LABS: HPV HYBRID CAPTURE II Negative (Negative)
== END ==
LOC: M LAB REF 16:21
PROVIDERS: ATTEND Nurse Practitioner Family
DX: E03.9 Hypothyroidism, unspecified (principal); E55.9 Vitamin D deficiency, unspecified; D64.9 Anemia, unspecified; Z12.4 Encounter for screening for malignant neoplasm of cervix; Z11.3 Encounter for screening for infections with a predominantly sexual mode of transmission
CPT/HCPCS: 80053; 80061; 81001; 82306; 84443; 85025; 86780; 87491; 87591; 87624; G0123

== ENCOUNTER 2018-05-30 15:21 | Emergency (ER) | payer MEDICARE, MEDICAID ==
[~2018-05-30] VITALS: Ht 167.6 cm; Wt 68.7 kg
[~2018-05-30 15:21] MED LIST changes: -LEVO100T5
[2018-05-30] MEDS ORDERED: LEVO100T5 (15:30)
[2018-05-30] MEDS ORDERED: LORazepam 1 MG TAB PO ONE (16:30)
[2018-05-30 16:56] LABS: HEMATOCRIT 39.5 % (36.0-47.0); HEMOGLOBIN 13.6 g/dl (12.0-15.5); MEAN CORPUSCULAR HEMOGLOBIN 30.4 pg (27.0-33.0); MEAN CORPUSCULAR HGB CONC 34.4 g/dl (32.0-36.5); MEAN CORPUSCULAR VOLUME 88.4 fl (80.0-96.0); PLATELET COUNT, AUTOMATED 201 10^3/uL (150-450); RED BLOOD COUNT 4.47 10^6/uL (4.00-5.40)
[2018-05-30 17:11] LABS: HCG, SERUM QUALITATIVE NEGATIVE (NEGATIVE)
[2018-05-30 17:21] LABS: AMPHETAMINES LEVEL URINE POSITIVE (NEGATIVE); BARBITURATES URINE NEGATIVE (NEGATIVE); BENZODIAZEPINES URINE NEGATIVE (NEGATIVE); CANNABINOIDS URINE POSITIVE (NEGATIVE); COCAINE METABOLITE URINE NEGATIVE (NEGATIVE); METHADONE URINE NEGATIVE (NEGATIVE); OPIATES URINE NEGATIVE (NEGATIVE); PHENCYCLIDINE URINE NEGATIVE (NEGATIVE)
[2018-05-30 17:30] LABS: ACETAMINOPHEN LEVEL < 2.0 UG/ML (10.0-30.0); ALBUMIN 3.7 GM/DL (3.2-5.2); ALT/SGPT 59 U/L (12-78); BILIRUBIN,DIRECT 0.2 MG/DL (0.0-0.2); BILIRUBIN,TOTAL 0.5 MG/DL (0.2-1.0); BLOOD UREA NITROGEN 15 MG/DL (7-18); CALCIUM LEVEL 8.6 MG/DL (8.5-10.1); CARBON DIOXIDE LEVEL 25 MEQ/L (21-32); CHLORIDE LEVEL 107 MEQ/L (98-107); CREATININE FOR GFR 0.85 MG/DL (0.55-1.30); ETHYL ALCOHOL (ETHANOL) < 0.003 % (0.000-0.010); GLOMERULAR FILTRATION RATE > 60.0 (>60); GLUCOSE, FASTING 75 MG/DL (70-100); POTASSIUM SERUM 4.4 MEQ/L (3.5-5.1); SALICYLATE LEVEL < 1.7 MG/DL (5.0-30.0); SODIUM LEVEL 142 MEQ/L (136-145); TOTAL PROTEIN 6.9 GM/DL (6.4-8.2)
[2018-05-31 00:55] VITALS: BP 129/82
--- NOTE | 2018-06-01 07:27 | ECGEPIP ---
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
== END 2018-05-31 01:01 | disposition short-term general hospital (02) ==
LOC: M ED 15:21
DX: R45.851 Suicidal ideations (principal); F32.9 Major depressive disorder, single episode, unspecified; F20.9 Schizophrenia, unspecified; F43.10 Post-traumatic stress disorder, unspecified; K21.9 Gastro-esophageal reflux disease without esophagitis; E28.2 Polycystic ovarian syndrome; E07.9 Disorder of thyroid, unspecified; M54.9 Dorsalgia, unspecified; R56.9 Unspecified convulsions; M79.7 Fibromyalgia; Z91.5 Personal history of self-harm; F17.200 Nicotine dependence, unspecified, uncomplicated; F19.10 Other psychoactive substance abuse, uncomplicated; Z91.048 Other nonmedicinal substance allergy status; Z88.8 Allergy status to other drugs, medicaments and biological substances; Z79.899 Other long term (current) drug therapy
CPT/HCPCS: 36415; 80048; 80076; 80307; 84443; 84703; 85027; 93005; 99285; G0480

== ENCOUNTER → 2018-07-27 | Outpatient (CLI) | payer MEDICARE, MEDICAID ==
[~2018-07-27] MED LIST changes: +LEVO100T5
== END ==
LOC: M OUTALCOH 10:50
PROVIDERS: ATTEND Psychiatry & Neurology Psychiatry
DX: F11.20 Opioid dependence, uncomplicated (principal)

== ENCOUNTER → 2018-08-09 | Outpatient (REF) | payer MEDICARE, MEDICAID ==
[~2018-08-09] MED LIST changes: +GABA800T4; +KETO10TAB PO; +OMEP40CA2; +ONDA4TAB6 PO; +QUET1TAB8; +SUBO8MIS; +VITA-112
[2018-08-09 18:32] LABS: AMORPHOUS SEDIMENT SMALL (NEGATIVE); APPEARANCE, URINE HAZY (CLEAR); BACTERIA, URINE AUTO NEGATIVE (NEGATIVE); BILIRUBIN, URINE AUTO NEGATIVE (NEGATIVE); BLOOD, URINE BLOOD NEGATIVE (NEGATIVE); COLOR, URINE YELLOW (YELLOW); GLUCOSE, URINE (UA) AUTO NEGATIVE (NEGATIVE); KETONE, URINE AUTO NEGATIVE (NEGATIVE); LEUKOCYTE ESTERASE, URINE AUTO 2+ (NEGATIVE); NITRITE, URINE AUTO NEGATIVE (NEGATIVE); PROTEIN, URINE AUTO NEGATIVE (NEGATIVE); RBC, URINE AUTO 2 /HPF (0-3); SPECIFIC GRAVITY URINE AUTO 1.008 (1.002-1.035); SQUAMOUS EPITHELIAL CELL UR AU 7 /HPF (0-6); UROBILINOGEN, URINE AUTO 0.2 mg/dL (0.0-2.0); WBC, URINE AUTO 18 /HPF (0-3)
[2018-08-09 18:34] LABS: BASO % 0.6 % (0.0-1.0); EOS # 0.2 10^3/uL (0.0-0.50); EOS % 2.6 % (0.0-3.0); HEMATOCRIT 37.9 % (36.0-47.0); HEMOGLOBIN 12.4 g/dl (12.0-15.5); LYMPH # 2.4 10^3/uL (1.5-6.5); LYMPH % 34.9 % (24.0-44.0); MEAN CORPUSCULAR HEMOGLOBIN 29.5 pg (27.0-33.0); MEAN CORPUSCULAR HGB CONC 32.7 g/dl (32.0-36.5); MONO # 0.5 10^3/uL (0.0-0.8); NEUTROPHILS # 3.8 10^3/uL (1.8-7.7); NEUTROPHILS % 54.8 % (36.0-66.0); PLATELET COUNT, AUTOMATED 194 10^3/uL (150-450); RED BLOOD COUNT 4.21 10^6/uL (4.00-5.40)
[2018-08-09 18:37] LABS: ALBUMIN 3.7 GM/DL (3.2-5.2); ALT/SGPT 94 U/L (12-78); BILIRUBIN,TOTAL 0.3 MG/DL (0.2-1.0); BLOOD UREA NITROGEN 27 MG/DL (7-18); CALCIUM LEVEL 8.4 MG/DL (8.5-10.1); CARBON DIOXIDE LEVEL 26 MEQ/L (21-32); CHLORIDE LEVEL 107 MEQ/L (98-107); CHOLESTEROL LEVEL 129 MG/DL (<200); CHOLESTEROL RISK RATIO 2.744 (<5); CREATININE FOR GFR 0.85 MG/DL (0.55-1.30); GLOMERULAR FILTRATION RATE > 60.0 (>60); GLUCOSE, FASTING 77 MG/DL (70-100); HDL CHOLESTEROL 47 MG/DL (>40); LDL CHOLESTEROL 69 MG/DL (<100); NON-HDL-C 82 MG/DL; POTASSIUM SERUM 4.2 MEQ/L (3.5-5.1); SODIUM LEVEL 139 MEQ/L (136-145); TOTAL PROTEIN 6.6 GM/DL (6.4-8.2); TRIGLYCERIDES LEVEL 67 MG/DL (<150)
[2018-08-09 19:06] LABS: HEMOGLOBIN A1c 4.7 %
[2018-08-09 19:18] LABS: HIV 1&2 SCREEN CENTAUR NEGATIVE (NEGATIVE)
[2018-08-10 08:51] LABS: HEPATITIS C VIRUS ABY INDEX > 11.0 INDEX (<0.8)
== END ==
LOC: M LAB REF 16:33
PROVIDERS: ATTEND Nurse Practitioner Family
DX: Z13.9 Encounter for screening, unspecified (principal); E03.9 Hypothyroidism, unspecified; Z79.899 Other long term (current) drug therapy

== ENCOUNTER 2018-08-15 21:07 | Emergency (ER) | payer MEDICARE, MEDICAID ==
[~2018-08-15] VITALS: Ht 167.6 cm; Wt 72.7 kg
[~2018-08-15 21:07] MED LIST changes: -ERGO500014 PO; -GABA800T4; -KETO10TAB PO; +LEVO100I PO; -LEVO100T5; -LEVO10VL PO; -OMEP40CA2; -ONDA4TAB6 PO; -QUET1TAB8; -SUBO8MIS; -VITA-112; +VITA500045 PO; +VITA500T17 PO; -VITA500T53 PO
[2018-08-15 21:19] VITALS: BP 133/89
[2018-08-15] MEDS ORDERED: QUET1TAB8 (21:24)
[2018-08-15] MEDS ORDERED: VITA-112 (21:24)
[2018-08-15] MEDS ORDERED: GABA800T4 (21:24)
[2018-08-15] MEDS ORDERED: SUBO8MIS (21:24)
[2018-08-15] MEDS ORDERED: OMEP40CA2 (21:24)
[2018-08-15 22:00] LABS: BASO % 0.4 % (0.0-1.0); EOS # 0.2 10^3/uL (0.0-0.50); EOS % 2.2 % (0.0-3.0); HEMATOCRIT 34.2 % (36.0-47.0); HEMOGLOBIN 11.5 g/dl (12.0-15.5); LYMPH # 2.9 10^3/uL (1.5-6.5); MEAN CORPUSCULAR HEMOGLOBIN 29.3 pg (27.0-33.0); MEAN CORPUSCULAR HGB CONC 33.6 g/dl (32.0-36.5); MONO # 0.5 10^3/uL (0.0-0.8); MONO % 6.7 % (0.0-5.0); NEUTROPHILS % 52.6 % (36.0-66.0); PLATELET COUNT, AUTOMATED 187 10^3/uL (150-450); RED BLOOD COUNT 3.93 10^6/uL (4.00-5.40); WHITE BLOOD COUNT 7.6 10^3/uL (4.0-10.0)
[2018-08-15] MEDS ORDERED: ONDANSETRON 4MG/2ML VIAL (J2405) IV ONE (22:00)
[2018-08-15] MEDS ORDERED: NS 1,000 ML IV ONE (22:00)
[2018-08-15] MEDS ORDERED: KETOROLAC 30 MG/ML VIAL (J1885) IV ONE (22:00)
[2018-08-15 22:22] LABS: ALBUMIN 3.5 GM/DL (3.2-5.2); ALT/SGPT 77 U/L (12-78); AMYLASE 105 U/L (25-115); BILIRUBIN,TOTAL 0.3 MG/DL (0.2-1.0); BLOOD UREA NITROGEN 13 MG/DL (7-18); C REACTIVE PROTEIN QUANTITATIV < 0.30 MG/DL (0.00-0.30); CALCIUM LEVEL 7.9 MG/DL (8.5-10.1); CARBON DIOXIDE LEVEL 27 MEQ/L (21-32); CHLORIDE LEVEL 106 MEQ/L (98-107); CREATININE FOR GFR 1.02 MG/DL (0.55-1.30); GAMMA GLUTAMYLTRANSPEPTIDASE 61 U/L (5-55); GLOMERULAR FILTRATION RATE > 60.0 (>60); GLUCOSE, FASTING 105 MG/DL (70-100); LIPASE 1009 U/L (73-393); POTASSIUM SERUM 3.9 MEQ/L (3.5-5.1); SODIUM LEVEL 139 MEQ/L (136-145)
[2018-08-15 23:10] LABS: MONO SCRN NEGATIVE (NEGATIVE)
[2018-08-15] MEDS ORDERED: ISOVUE-370 76% 100ML VIAL (Q9967) As Ordered ONE (23:15)
--- NOTE | 2018-08-15 23:42 | REP ---
Clinical: Left upper quadrant pain. Technique: Axial contrast enhanced images from the lung bases to the pubic symphysis using 100 ml Isovue 370 intravenous contrast material with coronal and sagittal re-formations. Comparison: 08/06/2017. Findings: Lung bases are clear. Visualized heart and pericardium normal. A few scattered hepatic hypodensities compatible with cysts. Kidneys are enlarged with innumerable cysts compatible with polycystic kidney disease and essentially unchanged when compared to prior examination. Small nonobstructing right intrarenal calculi up to 3.5 mm without hydronephrosis. Spleen appears mildly enlarged but stable and without perisplenic inflammatory stranding or abnormality. Gallbladder is collapsed. Pancreas is unremarkable. Bilateral adrenal glands are normal. The enteric system demonstrates mild fecal stasis without obstruction or acute inflammatory process. Colonic and sigmoid diverticulosis noted without acute diverticulitis. Pelvis demonstrates normal bladder and age-appropriate uterus/adnexa. No ascites. No free air. No obvious adenopathy. Abdominal aorta without aneurysm or dissection. Musculoskeletal structures intact without focal osseous abnormality. Impression: 1. Polycystic kidney disease relatively stable in appearance compared to 2018. Few hepatic cysts are also identified and stable. 2. Mild fecal stasis along with diverticulosis and no evidence for diverticulitis. 3. No acute abdominopelvic pathology appreciated. Electronically Signed by Spike Purvis MD 08/15/2018 11:34 P
[2018-08-16] MEDS ORDERED: ONDA4TAB6 PO (00:07)
[2018-08-16] MEDS ORDERED: MACR100C43 PO (00:07)
[2018-08-16] MEDS ORDERED: KETO10TAB PO (00:07)
[2018-08-16] MEDS ORDERED: NITROFURANTOIN (MACROBID) 100 MG CAP PO ONE (00:15)
== END 2018-08-16 00:38 | disposition home or self-care (01) ==
LOC: M ED 21:07
DX: K85.90 Acute pancreatitis without necrosis or infection, unspecified (principal); N39.0 Urinary tract infection, site not specified; E28.2 Polycystic ovarian syndrome; K57.30 Diverticulosis of large intestine without perforation or abscess without bleeding; R59.9 Enlarged lymph nodes, unspecified; E03.9 Hypothyroidism, unspecified; K21.9 Gastro-esophageal reflux disease without esophagitis; F25.9 Schizoaffective disorder, unspecified; F43.10 Post-traumatic stress disorder, unspecified; F41.9 Anxiety disorder, unspecified; F17.210 Nicotine dependence, cigarettes, uncomplicated; F15.11 Other stimulant abuse, in remission; M79.7 Fibromyalgia; Q61.3 Polycystic kidney, unspecified; Z79.890 Hormone replacement therapy; Z79.899 Other long term (current) drug therapy; Z86.69 Personal history of other diseases of the nervous system and sense organs; Z88.8 Allergy status to other drugs, medicaments and biological substances; Z91.048 Other nonmedicinal substance allergy status
CPT/HCPCS: 74177; 80053; 81001; 81025; 82150; 82977; 83690; 85025; 86140; 86308; 87086; 96374; 96375; 99284; J1885; J2405; Q9967

== ENCOUNTER 2018-08-27 23:47 | Inpatient (IN) | payer MEDICARE, MEDICAID ==
[~2018-08-27] VITALS: Ht 165.1 cm; Wt 70.9 kg
[~2018-08-27 23:47] MED LIST changes: +GABA800T4; +KETO10TAB PO; +OMEP40CA2; +ONDA4TAB6 PO; +QUET1TAB8; +SUBO8MIS; +VITA-112
[2018-08-28] MEDS ORDERED: NS 1,000 ML IV ONE (00:30)
[2018-08-28 00:31] LABS: BASO % 0.4 % (0.0-1.0); EOS # 0.1 10^3/uL (0.0-0.50); EOS % 1.5 % (0.0-3.0); HEMATOCRIT 37.9 % (36.0-47.0); HEMOGLOBIN 12.7 g/dl (12.0-15.5); LYMPH # 2.8 10^3/uL (1.5-6.5); LYMPH % 37.9 % (24.0-44.0); MEAN CORPUSCULAR HEMOGLOBIN 29.1 pg (27.0-33.0); MEAN CORPUSCULAR HGB CONC 33.5 g/dl (32.0-36.5); MEAN CORPUSCULAR VOLUME 86.7 fl (80.0-96.0); MONO # 0.6 10^3/uL (0.0-0.8); MONO % 8.3 % (0.0-5.0); NEUTROPHILS # 3.7 10^3/uL (1.8-7.7); NEUTROPHILS % 51.6 % (36.0-66.0); PLATELET COUNT, AUTOMATED 235 10^3/uL (150-450); RED BLOOD COUNT 4.37 10^6/uL (4.00-5.40); WHITE BLOOD COUNT 7.3 10^3/uL (4.0-10.0)
[2018-08-28 00:46] LABS: HCG, SERUM QUALITATIVE NEGATIVE (NEGATIVE)
[2018-08-28 00:57] LABS: AMPHETAMINES LEVEL URINE POSITIVE (NEGATIVE); BARBITURATES URINE NEGATIVE (NEGATIVE); BENZODIAZEPINES URINE NEGATIVE (NEGATIVE); CANNABINOIDS URINE POSITIVE (NEGATIVE); COCAINE METABOLITE URINE POSITIVE (NEGATIVE); METHADONE URINE NEGATIVE (NEGATIVE); OPIATES URINE NEGATIVE (NEGATIVE); PHENCYCLIDINE URINE NEGATIVE (NEGATIVE)
[2018-08-28 01:02] LABS: ACETAMINOPHEN LEVEL < 2.0 UG/ML (10.0-30.0); ALBUMIN 3.8 GM/DL (3.2-5.2); ALT/SGPT 75 U/L (12-78); BILIRUBIN,DIRECT 0.2 MG/DL (0.0-0.2); BILIRUBIN,TOTAL 0.5 MG/DL (0.2-1.0); BLOOD UREA NITROGEN 15 MG/DL (7-18); CALCIUM LEVEL 8.7 MG/DL (8.5-10.1); CARBON DIOXIDE LEVEL 25 MEQ/L (21-32); CHLORIDE LEVEL 108 MEQ/L (98-107); CPK CREATINE PHOSPHOKINASE 277 U/L (26-192); CREATININE FOR GFR 0.99 MG/DL (0.55-1.30); ETHYL ALCOHOL (ETHANOL) 0.003 % (0.000-0.010); GLOMERULAR FILTRATION RATE > 60.0 (>60); GLUCOSE, FASTING 85 MG/DL (70-100); POTASSIUM SERUM 3.3 MEQ/L (3.5-5.1); SALICYLATE LEVEL < 1.7 MG/DL (5.0-30.0); SODIUM LEVEL 143 MEQ/L (136-145); TOTAL PROTEIN 7.1 GM/DL (6.4-8.2)
[2018-08-28] MEDS ORDERED: KETOROLAC 30 MG/ML VIAL (J1885) IV ONE (04:00)
--- NOTE | 2018-08-28 05:39 | ECGEPIP ---
Stationary ECG Study [facility] - ED Test Date: 2018-08-28 Pat Name: GABINO CABELLO Department: Room: - Gender: F Car Trimmer: ANITHA : 1990 Requested By: ABBEY Colon Order Number: [id number] Reading MD: Scott Bennett Measurements Intervals [place] Rate: 79 P: 73 [place]: 159 QRS: 11 QRSD: 93 T: 31 QT: 409 QTc: 469 Interpretive Statements SINUS RHYTHM WITH SINUS ARRHYTHMIA LEFT ATRIAL ENLARGEMENT BASELINE ARTIFACT AFFECTS INTERPRETATION Electronically Signed On 08-28-2018 5:38:33 EDT by Scott Bennett
[2018-08-28] MEDS ORDERED: MACR100C43 PO (09:11)
[2018-08-28] MEDS ORDERED: ONDA4TAB6 PO (09:11)
[2018-08-28] MEDS ORDERED: DRIS50003 PO (09:13)
[2018-08-28] MEDS ORDERED: D 202000 PO (09:13)
[2018-08-28] MEDS ORDERED: MOM 30ML SUSPENSION UDC PO PRN (13:00)
[2018-08-28] MEDS ORDERED: traZODone 50 MG TAB PO PRN (13:00)
[2018-08-28] MEDS ORDERED: MAALOX 30 ML SUSP *UDC PO PRN (13:00)
[2018-08-28 14:02] VITALS: BP 140/90
[2018-08-28] MEDS: PALIPERIDONE 3 MG ER TAB (INVEGA) PO SCH ×2 (14:24→21:29)
--- NOTE | 2018-08-28 17:30 | HPEPDOC ---
[facility] Medical History & Physical Date of Admission Aug 28, 2018 History and Physical CHIEF COMPLAINT: Paranoid thoughts HISTORY OF PRESENT ILLNESS: Patient is a 28-year-old female with past medical history of schizoaffective disorder, IV drug use, PTSD, bipolar, hepatitis C not on treatment, hypothyroidism, PCOS, and fibromyalgia presented to [facility] health unit reportedly had thoughts that people were going to hurt her. Patient is very tangential on interview with difficulty in obtaining history but was able to ascertain quite a bit from nursing staff. Patient reported she had stopped taking all her medications for a while due to his life circumstances. She denies suicidal thoughts but stated that she rather hurt herself before others it due to her. She states that she has chronic pain everywhere due to her fibromyalgia but otherwise no other physical problems apart from her baseline. She was noted to have evidence of UTI on UA but patient herself denies any symptoms including any dysuria. PAST MEDICAL HISTORY: 1. Hypothyroidism. 2. Schizoaffective disorder/PTSD/bipolar disorder. 3. Hepatitis C not treated. 4. IV drug use 5. Fibromyalgia 6. PCOS SOCIAL HISTORY: Smokes 1ppd. Rare alcohol use. "uses all kinds of drugs in all forms" including cocaine, heroin, meth, juhi, suboxone, "other chemicals" FAMILY HISTORY: Father had CAD with hx of MA ALLERGIES: Please see below. REVIEW OF SYSTEMS: 10 point review of system negative except as stated in HPI HOME MEDICATIONS: Please see below. PHYSICAL EXAMINATION: General: No acute distress, Alert Eyes: Normal sclera, EOMI, NALLELY HENT: Atraumatic, neck supple, moist mucous membranes Cardiovascular: Normal rate, normal rhythm. No murmurs appreciated. Pulmonary: Clear to auscultation b/l, no wheezing GI: Soft, nontender, nondistended Skin: Warm and dry Neuro: CN grossly intact. No focal deficits. Strengths equal b/l. Psych: oriented x 3, extremely verbose and tangential in thoughts, paranoid. LABORATORY DATA: See below. MICROBIOLOGY: Please see below. ASSESSMENT AND PLAN: 1. Schizoaffective disorder/PTSD/Bipolar - Appear to be paranoid currently. - Will need continue evaluation and treatment per Psych. - Denies active suicidal ideation. 2. Hypothyroidism - Has been off of medications. - TSH 6.25, not significantly elevated but is high as patient has been off of medications. - resume synthroid. Need to recheck levels in about 4 weeks, likely as outpatient. 3. Hep C - Will need evaluation for treatment. - May not qualify as patient is still actively using IV drugs? - Will need follow up with ID post discharge. 4. PCOS/Fibromyalgia - chronic conditions. - no changes from baseline. monitor. 5. UTI - Start on macrobid pending urine culture. - Has been prescribed multiple course of antibiotics that patient has not taken since march. - Asymptomatic however. Vital Signs Vital Signs Date Time Temp Pulse Resp B/P (MAP) Pulse Ox O2 Delivery O2 Flow Rate FiO2 08/28/18 14:02 97.7 18 96 140/90 (107) 99 08/28/18 06:45 Room Air Laboratory Data Labs 24H Laboratory Tests 2 08/28/18 00:23: Immature Granulocyte % (Auto) 0.3, White Blood Count 7.3, Red Blood Count 4.37, Hemoglobin 12.7, Hematocrit 37.9, Mean Corpuscular Volume 86.7, Mean Corpuscular Hemoglobin 29.1, Mean Corpuscular Hemoglobin Concent 33.5, Red Cell Distribution Width 13.3, Platelet Count 235, Neutrophils (%) (Auto) 51.6, Lymphocytes (%) (Auto) 37.9, Monocytes (%) (Auto) 8.3H, Eosinophils (%) (Auto) 1.5, Basophils (%) (Auto) 0.4, Neutrophils # (Auto) 3.7, Lymphocytes # (Auto) 2.8, Monocytes # (Auto) 0.6, Eosinophils # (Auto) 0.1, Basophils # (Auto) 0.0, Nucleated Red Blood Cells % (auto) 0.0, Urine Color YELLOW, Urine Appearance CLOUDYH, Urine pH 6.0, Urine Specific [place] 1.014, Urine Protein 2+H, Urine Glucose (UA) NEGATIVE, Urine Ketones 1+H, Urine Blood 3+H, Urine Nitrite POSITIVEH, Urine Bi lirubin NEGATIVE, Urine Urobilinogen 2.0H, Urine Leukocyte Esterase 3+H, Urine WBC (Auto) TNTCH, Urine RBC (Auto) 159H, Urine Hyaline Casts (Auto) 0, Urine Bacteria (Auto) 2+H, Urine Squamous Epithelial Cells 2, Urine Amorphous Sediment SMALLH, Urine Mucus (Auto) SMALL, Urine Yeast-Like Cells (Auto) SMALLH, Urine Sperm (Auto) , Anion Gap 10, Glomerular Filtration Rate > 60.0, Calcium Level 8.7, Aspartate Amino Transf (AST/SGOT) 42H, Alanine Aminotransferase (ALT/SGPT) 75, Alkaline Phosphatase 63, Total Bilirubin 0.5, Direct Bilirubin 0.2, Total Creatine Kinase 277H, Total Protein 7.1, Albumin 3.8, Albumin/Globulin Ratio 1.15, Thyroid Stimulating Hormone (TSH) 6.520H, Human Chorionic Gonadotropin, Qual NEGATIVE, Salicylates Level < 1.7L, Urine Amphetamines Screen POSITIVEH, Urine Benzodiazepines Screen NEGATIVE, Urine Opiates Screen NEGATIVE, Urine Methadone Screen NEGATIVE, Acetaminophen Level < 2.0L, Urine Barbiturates Screen NEGATIVE, Urine Phencyclidine Screen NEGATIVE, Urine Cocaine Metabolite Screen POSITIVEH, Urine Cannabinoids Screen POSITIVEH, Ethyl Alcohol Level 0.003 CBC/BMP Laboratory Tests 08/28/18 00:23 Red Blood Count 4.37, Mean Corpuscular Volume 86.7, Mean Corpuscular Hemoglobin 29.1, Mean Corpuscular Hemoglobin Concent 33.5, Red Cell Distribution Width 13.3, Neutrophils (%) (Auto) 51.6, Lymphocytes (%) (Auto) 37.9, Monocytes (%) (Auto) 8.3 H, Eosinophils (%) (Auto) 1.5, Basophils (%) (Auto) 0.4, Neutrophils # (Auto) 3.7, Lymphocytes # (Auto) 2.8, Monocytes # (Auto) 0.6, Eosinophils # (Auto) 0.1, Basophils # (Auto) 0.0 Microbiology Microbiology 08/28/18 Urine Culture, Received Pending Home Medications Scheduled Cholecalciferol (Vitamin D3) (Vitamin D3) 2,000 Unit Tablet, 2,000 UNIT PO DAILY Ergocalciferol (Vitamin D2) (Drisdol) 50,000 Unit Capsule, 50,000 UNIT PO QWEEK NEW SCRIPT Levothyroxine Sodium (Levothyroxine Sodium) 100 Mcg Tab, 100 MCG PO DAILY Nitrofurantoin Monohyd/M-Cryst (Macrobid 100 mg Capsule) 100 Mg Capsule, 100 MG PO BID FILLED 08/16/18 X 7 DAY SUPPLY-PT WAS UNABLE TO FINISH Scheduled PRN Ondansetron (Ondansetron Odt) 4 Mg Tab.rapdis, 4 MG PO Q6H PRN for NAUSEA Allergies Coded Allergies: haloperidol (Verified Allergy, Unknown, 08/15/18) nickel (Verified Allergy, Unknown, 08/15/18) ziprasidone (Verified Adverse Reaction, Intermediate, TREMORS, 08/15/18) YADI CONNOR MD Aug 28, 2018 17:30
[2018-08-28] MEDS ORDERED: POTASSIUM CHLORIDE 10 MEQ SR TABLET PO ONE (17:45)
[2018-08-28] MEDS: NITROFURANTOIN (MACROBID) 100 MG CAP PO SCH (21:29)
[2018-08-28] MEDS: ACETAMINOPHEN TAB 650MG DOSE (2X325MG) PO PRN (21:30)
[2018-08-29] MEDS: LEVOTHYROXINE 100MCG TABLET (0.1MG) PO SCH (06:00)
[2018-08-29 06:50] VITALS: BP 110/62
[2018-08-29 07:55] LABS: BLOOD UREA NITROGEN 16 MG/DL (7-18); CALCIUM LEVEL 8.4 MG/DL (8.5-10.1); CARBON DIOXIDE LEVEL 28 MEQ/L (21-32); CHLORIDE LEVEL 112 MEQ/L (98-107); GLOMERULAR FILTRATION RATE > 60.0 (>60); GLUCOSE, FASTING 85 MG/DL (70-100); POTASSIUM SERUM 4.4 MEQ/L (3.5-5.1); SODIUM LEVEL 145 MEQ/L (136-145)
[2018-08-29] MEDS: PALIPERIDONE 3 MG ER TAB (INVEGA) PO SCH ×2 (08:50→20:33)
[2018-08-29] MEDS: VITAMIN D 50,000 UNITS CAPSULE (ERGOCALCIFEROL 1.25MG) PO SCH (08:50)
[2018-08-29] MEDS: NITROFURANTOIN (MACROBID) 100 MG CAP PO SCH ×2 (08:50→20:33)
[2018-08-29] MEDS: ACETAMINOPHEN TAB 650MG DOSE (2X325MG) PO PRN ×3 (08:51→20:43)
--- NOTE | 2018-08-29 13:35 | IPNPDOC ---
Date Seen The patient was seen on 08/29/18. Progress Note SUBJECTIVE: Patient was found in bed. Stating that she feels sleepy often and low in energy, otherwise denies any other complaints. No urinary symptoms reported. OBJECTIVE PHYSICAL EXAMINATION: VITAL SIGNS: Please see below. General: No acute distress, Alert Eyes: Normal sclera, EOMI, NALLELY HENT: Atraumatic, neck supple, moist mucous membranes Cardiovascular: Normal rate, normal rhythm. No murmurs appreciated. Pulmonary: Clear to auscultation b/l, no wheezing GI: Soft, nontender, nondistended Skin: Warm and dry Neuro: CN grossly intact. No focal deficits. Strengths equal b/l. Psych: oriented x 3, extremely verbose and tangential in thoughts. LABORATORY DATA, IMAGING STUDIES, MICROBIOLOGY: Please see below. ASSESSMENT AND PLAN: 1. Schizoaffective disorder/PTSD/Bipolar - Appear to be paranoid currently. - Will need continue evaluation and treatment per Psych. - Denies active suicidal ideation. 2. Hypothyroidism - Has been off of medications. - TSH 6.25, not significantly elevated but is high as patient has been off of medications. - resume synthroid. Need to recheck levels in about 4 weeks, likely as outpatient. - Lethargy likely 2/2 being off of medications for a long time. 3. Hep C - Will need evaluation for treatment. - May not qualify as patient is still actively using IV drugs? - Will need follow up with ID post discharge. 4. PCOS/Fibromyalgia - chronic conditions. - no changes from baseline. monitor. 5. UTI - Started on macrobid pending urine culture. - Has been prescribed multiple course of antibiotics that patient has not taken since march. - Asymptomatic. Will sign off at this time, patient is stable medically. Feel free to call if needed. VS, I&O, 24H, Fishbone Vital Signs/I&O Vital Signs Date Time Temp Pulse Resp B/P (MAP) Pulse Ox O2 Delivery O2 Flow Rate FiO2 08/29/18 06:50 98.4 78 12 110/62 (78) 08/28/18 14:02 99 08/28/18 06:45 Room Air Laboratory Data 24H LABS Laboratory Tests 2 08/29/18 07:01: Anion Gap 5L, Glomerular Filtration Rate > 60.0, Blood Urea Nitrogen 16, Creatinine 1.00, Sodium Level 145, Potassium Level 4.4#, Chloride Level 112H, Carbon Dioxide Level 28, Calcium Level 8.4L CBC/BMP Laboratory Tests 08/29/18 07:01 Calcium Level 8.4 L Microbiology Microbiology 08/28/18 Urine Culture, Received Pending YADI CONNOR MD Aug 29, 2018 13:35
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
[2018-08-29 18:32] VITALS: BP 123/78
[2018-08-29] MEDS ORDERED: OLANZapine ORAL DISINTEGRATING TAB 5MG PO PRN (20:00)
[2018-08-30] MEDS: LEVOTHYROXINE 100MCG TABLET (0.1MG) PO SCH (06:01)
[2018-08-30 06:58] VITALS: BP 111/72
[2018-08-30] MEDS: PALIPERIDONE 3 MG ER TAB (INVEGA) PO SCH ×2 (08:09→21:03)
[2018-08-30] MEDS: NITROFURANTOIN (MACROBID) 100 MG CAP PO SCH ×2 (08:09→21:02)
[2018-08-30 18:00] VITALS: BP 121/75
--- NOTE | 2018-08-30 18:59 | MHIPNPDOC ---
[facility] Progress Note Progress Note DATE OF SERVICE: 08/30/18 HISTORY: CHIEF COMPLAINT: Psychosis most likely secondary to drug abuse HISTORY OF PRESENT ILLNESS: Patient is a 28-year-old female, who as per ED report: Pt presented with EMS last night after calling police stating she was afraid for her life, also unsure if she had used any drugs. (Pt's tox screen was positive for multiple drugs and she has a long hx of substance abuse). Pt also has hx of schizoaffective D/O and PTSD. Not currently taking her medications for unknown amount of time and pt is a poor historian. Pt thinks she is homeless? States she cannot go back to the house where she was living because everyone is trying to kill her. "They want me . They are going to eat me. I thought there was meth in the basement and Hai wanted me to go olive picker bottles for him but I think it's a scam. I think he's going to hurt me or kill me. I couldn't breathe and I thought they were trying to kill me so I called the police." Pt adds that she is "afraid all the time" and doesn't feel safe anywhere. "They are trying to poison me. People are following me al the time, one ernesto has a hammer. I tried to run. The gas is making me sick because they're all trying to poison me and playing mind games with me. I would rather get a gun and shoot myself because I am so afraid. I don't know what to do. Pt is unable to reports where or when she last received any MH services. Unknown if pt has any supports." Pt appears unkempt, disheveled. Speech is mumbled. Eye contact is poor. She is unsure when she last used any drugs. Unsure when she last saw a psychiatrist or took medications. Feels she has no supports." VITAL SIGNS: See below. NEW TEST RESULTS: See below CURRENT MEDICATIONS: See below. MENTAL STATUS EXAMINATION: Patient is a 28-year old female, who is alert, mildly cooperative, dressed in hospital clothes, with poor eye contact. Speech: Is rapid, pressured, spontaneous and fluent, loud. Language skills are fair. Thought processes including: circumstantial and tangential. Thought content: focused on being discharged. bizarre and paranoid elusions, cognitive distortions (anxious thoughts) Description of abnormal or psychotic thoughts: Delusional thoughts 9paranoid- bizarre), she doesn't seem to be responding to internal stimuli but she might be. She denies having auditory, visual or olfactory, tactile hallucinations. she denies being suicidal, she denies homicidal ideation Judgment: Poor Insight: Limited Orientation: x 3. Recent and remote memory: limited, she is psychotic. Attention span and concentration: poor. Language: Sammarinese, she doesn't have an ample vocabulary at this time. Fund of knowledge: average. Mood: irritable, anxious. Affect: irritable, anxious, labile, easily angered. DIAGNOSES: 1. Unspecified psychotic disorder 2. R/O drug induced psychosis 3. Polysubstance abuse ASSESSMENT: the patient continues to be psychotic, she is demanding that I tell her about her discharge date, she can't process at this time that we need [place] on a daily basis for me to decide i she has improved or not. she says being here puts more pressure on her, she says she wants to leave. Patient is not contributing with much information, she is a poor historian, she still thinks that there are a lot of people that are lying to her. At a certain point she put her hands on her head and started walking in small circles in the office, completely overwhelmed and she kept saying that she was confused. Saisd she was not going to take Zyprexa but she is willing to take Seroquel at night, but I'm going to discontinue Zyprexa and start Seroquel 25 mgs PO Q4H PRN for anxiety/agitation MANAGEMENT PLAN: As above TIME SPENT: 10 minutes. Vital Signs Vital Signs Date Time Temp Pulse Resp B/P (MAP) Pulse Ox O2 Delivery O2 Flow Rate FiO2 08/30/18 18:00 98.5 90 18 121/75 (90) 99 08/28/18 06:45 Room Air Current Medications Current Medications Acetaminophen (Tylenol Tab) 650 mg Q6HP PRN PO HEADACHE or DISCOMFORT Last administered on 08/29/18at 20:43; Start 08/28/18 at 13:00 Al Hydrox/Mg Hydrox/Simethicone (Mylanta) 30 ml Q4HP PRN PO HEARTBURN/INDIGESTION; Start 08/28/18 at 13:00 Home Med (Med Rec Complete!) ASDIRECTED XX ; Start 08/28/18 at 09:30; Stop 08/28/18 at 09:30; Status DC Levothyroxine Sodium (Synthroid) 100 mcg DAILY@06 PO Last administered on 08/30/18at 06:01; Start 08/29/18 at 06:00 Magnesium Hydroxide (Milk Of Magnesia) 30 ml DAILYPRN PRN PO CONSTIPATION; Start 08/28/18 at 13:00 Nitrofurantoin Monoh/Nitrofur Macro (Macrobid) 100 mg BID PO Last administered on 08/30/18at 08:09; Start 08/28/18 at 21:00; Stop 09/03/18 at 21:00 Olanzapine (ZyPREXA ZYDIS) 5 mg Q4HP PRN PO ANXIETY/AGITATION; Start at 20:00 Paliperidone (Invega) 3 mg BID PO Last administered on 08/30/18at 08:09; Start 08/28/18 at 13:30 Quetiapine Fumarate (SEROquel) 100 mg QHS PO ; Start 08/30/18 at 21:00 Trazodone HCl (Desyrel) 50 mg QHSP PRN PO INSOMNIA Last administered on 08/29/18at 20:33; Start 08/28/18 at 13:00; Stop 08/30/18 at 18:06; Status DC Vitamin D (Drisdol) 50,000 units Tu@09 PO Last administered on 08/29/18at 08:50; Start 08/29/18 at 09:00 Allergies Coded Allergies: haloperidol (Verified Allergy, Unknown, 08/15/18) nickel (Verified Allergy, Unknown, 08/15/18) ziprasidone (Verified Adverse Reaction, Intermediate, TREMORS, 08/15/18) LSIA SOLOMON MD Aug 30, 2018 18:52
[2018-08-30] MEDS ORDERED: QUEtiapine FUMARATE 100 MG TAB PO SCH (21:00)
[2018-08-30] MEDS: QUEtiapine FUMARATE 50 MG TAB PO SCH (21:02)
[2018-08-30] MEDS: BENZTROPINE 1 MG TAB PO SCH (21:02)
[2018-08-30] MEDS: ACETAMINOPHEN TAB 650MG DOSE (2X325MG) PO PRN (21:05)
[2018-08-31] MEDS: LEVOTHYROXINE 100MCG TABLET (0.1MG) PO SCH (06:13)
[2018-08-31 07:08] VITALS: BP 125/74
[2018-08-31] MEDS: NITROFURANTOIN (MACROBID) 100 MG CAP PO SCH ×2 (08:50→20:54)
[2018-08-31] MEDS: BENZTROPINE 1 MG TAB PO SCH ×2 (08:50→20:54)
[2018-08-31] MEDS: PALIPERIDONE 3 MG ER TAB (INVEGA) PO SCH ×2 (08:50→20:54)
[2018-08-31] MEDS: QUEtiapine FUMARATE 50 MG TAB PO SCH ×3 (08:51→20:54)
--- NOTE | 2018-08-31 17:27 | MHIPNPDOC ---
[facility] Progress Note Progress Note DATE OF SERVICE: 08/31/18 HISTORY: CHIEF COMPLAINT: Psychosis most likely secondary to drug abuse HISTORY OF PRESENT ILLNESS: Patient is a 28-year-old female, who as per ED report: Pt presented with EMS last night after calling police stating she was afraid for her life, also unsure if she had used any drugs. (Pt's tox screen was positive for multiple drugs and she has a long hx of substance abuse). Pt also has hx of schizoaffective D/O and PTSD. Not currently taking her medications for unknown amount of time and pt is a poor historian. Pt thinks she is homeless? States she cannot go back to the house where she was living because everyone is trying to kill her. "They want me . They are going to eat me. I thought there was meth in the basement and Hai wanted me to go pickle solution maker bottles for him but I think it's a scam. I think he's going to hurt me or kill me. I couldn't breathe and I thought they were trying to kill me so I called the police." Pt adds that she is "afraid all the time" and doesn't feel safe anywhere. "They are trying to poison me. People are following me al the time, one ernesto has a hammer. I tried to run. The gas is making me sick because they're all trying to poison me and playing mind games with me. I would rather get a gun and shoot myself because I am so afraid. I don't know what to do. Pt is unable to reports where or when she last received any MH services. Unknown if pt has any supports." Pt appears unkempt, disheveled. Speech is mumbled. Eye contact is poor. She is unsure when she last used any drugs. Unsure when she last saw a psychiatrist or took medications. Feels she has no supports." VITAL SIGNS: See below. NEW TEST RESULTS: See below CURRENT MEDICATIONS: See below. MENTAL STATUS EXAMINATION: Patient is a 28-year old female, who is alert, uncooperative, dressed in hospital clothes, with poor eye contact. Speech: Is rapid, pressured, spontaneous and fluent, loud. Language skills are fair. Thought processes including: circumstantial and tangential, angry thoughts Thought content: focused on being discharged. Bizarre and paranoid delusions, cognitive distortions (anxious thoughts) Description of abnormal or psychotic thoughts: Delusional thoughts (paranoid- bizarre), she doesn't seem to be responding to internal stimuli but she might be. She denies having auditory, visual or olfactory, tactile hallucinations. She denies being suicidal, she denies homicidal ideation but she is psychotic, angr y, aggressive Judgment: Poor Insight: Poor Orientation: x 3. Recent and remote memory: limited, she is psychotic. Attention span and concentration: poor. Language: Belgian, she doesn't have an ample vocabulary at this time. Fund of knowledge: average. Mood: irritable, angry, anxious. Affect: irritable, anxious, labile, easily angered. DIAGNOSES: 1. Unspecified psychotic disorder 2. R/O drug induced psychosis 3. Polysubstance abuse ASSESSMENT: the patient was sleeping when this freelance copywriter approached her, she said she already had lunch. She started getting agitated, saying that she was fd up of being asked the same things over and over again. I explained we were asking her the same questions because she was confused when she was admitted and she believed everybody was lying to her. She got up from bed and started getting louder and louder, she asked when would she be leaving because nobody was doing anything to help her, all what she needs is a place to stay and food to eat, she is not insightful about her mental illness or about her drug abuse problem. At that moment ?Ed came inside because she was too loud and she got more and more angry. left the room because she is not ready to speak at this time. She is probably withdrawing from methamphetamines. i have decreased the 100 mgs of Seroquel at bedtime to 50 mgs of Seroquel because she was too sedated and has not been attending groups. discontinued the 50 mgs Po TID of Seroquel. Will start Depakote 250 mgs PO B ID. MANAGEMENT PLAN: As above TIME SPENT: 10 minutes. Vital Signs Vital Signs Date Time Temp Pulse Resp B/P (MAP) Pulse Ox O2 Delivery O2 Flow Rate FiO2 08/31/18 07:08 97.5 74 14 125/74 (91) 08/30/18 18:00 99 08/28/18 06:45 Room Air Current Medications Current Medications Acetaminophen (Tylenol Tab) 650 mg Q6HP PRN PO HEADACHE or DISCOMFORT Last administered on 08/30/18at 21:05; Start 08/28/18 at 13:00 Al Hydrox/Mg Hydrox/Simethicone (Mylanta) 30 ml Q4HP PRN PO HEARTBURN /INDIGESTION; Start 08/28/18 at 13:00 Benztropine Mesylate (Cogentin) 1 mg BID PO Last administered on 08/31/18at 08:50; Start 08/30/18 at 21:00 Home Med (Med Rec Complete!) ASDIRECTED XX ; Start 08/28/18 at 09:30; Stop 08/28/18 at 09:30; Status DC Levothyroxine Sodium (Synthroid) 100 mcg DAILY@06 PO Last administered on 08/31/18at 06:13; Start 08/29/18 at 06:00 Magnesium Hydroxide (Milk Of Magnesia) 30 ml DAILYPRN PRN PO CONSTIPATION; Start 08/28/18 at 13:00 Nitrofurantoin Monoh/Nitrofur Macro (Macrobid) 100 mg BID PO Last administered on 08/31/18at 08:50; Start 08/28/18 at 21:00; Stop 09/03/18 at 21:00 Olanzapine (ZyPREXA ZYDIS) 5 mg Q4HP PRN PO ANXIETY/AGITATION; Start 08/29/18 at 20:00; Status Cancel Paliperidone (Invega) 3 mg BID PO Last administered on 08/30/18at 08:09; Start 08/28/18 at 13:30; Stop 08/30/18 at 19:00; Status DC Paliperidone (Invega) 6 mg BID PO Last administered on 08/31/18at 08:50; Start 08/30/18 at 21:00 Quetiapine Fumarate (SEROquel) 50 mg TID PO Last administered on 08/30/18at 21:02; Start 08/30/18 at 21:00; Stop 08/31/18 at 17:16; Status DC Quetiapine Fumarate (SEROquel) 100 mg QHS PO Last administered on 08/30/18at 21:02; Start 08/30/18 at 21:00 Trazodone HCl (Desyrel) 50 mg QHSP PRN PO INSOMNIA Last administered on 08/14 11/01at 20:33; Start 08/28/18 at 13:00; Stop 08/30/18 at 18:06; Status DC Vitamin D (Drisdol) 50,000 units @ PO Last administered on 08/29/18at 08:50; Start 08/29/18 at 09:00 Allergies Coded Allergies: haloperidol (Verified Allergy, Unknown, 08/15/18) nickel (Verified Allergy, Unknown, 08/15/18) ziprasidone (Verified Adverse Reaction, Intermediate, TREMORS, 08/15/18) LISA SOLOMON MD Aug 31, 2018 17:27
[2018-08-31 18:08] VITALS: BP 118/75
[2018-08-31] MEDS: DIVALPROEX 250 MG TAB PO SCH (20:54)
[2018-08-31] MEDS: ACETAMINOPHEN TAB 650MG DOSE (2X325MG) PO PRN (21:01)
[2018-09-01] MEDS: LEVOTHYROXINE 100MCG TABLET (0.1MG) PO SCH (06:27)
[2018-09-01 07:00] VITALS: BP 107/58
[2018-09-01] MEDS: DIVALPROEX 250 MG TAB PO SCH ×3 (09:00→20:43)
[2018-09-01] MEDS: NITROFURANTOIN (MACROBID) 100 MG CAP PO SCH ×2 (09:27→20:41)
[2018-09-01] MEDS: BENZTROPINE 1 MG TAB PO SCH ×2 (09:27→20:41)
[2018-09-01] MEDS: PALIPERIDONE 3 MG ER TAB (INVEGA) PO SCH ×2 (09:27→20:41)
[2018-09-01] MEDS: clonazePAM 1 MG TAB PO SCH ×2 (11:21→20:41)
--- NOTE | 2018-09-01 15:44 | MHIPNPDOC ---
[facility] Progress Note Progress Note DATE OF SERVICE: 09/01/18 HISTORY: CHIEF COMPLAINT: Psychosis most likely secondary to drug abuse HISTORY OF PRESENT ILLNESS: Patient is a 28-year-old female, who as per ED report: Pt presented with EMS last night after calling police stating she was afraid for her life, also unsure if she had used any drugs. (Pt's tox screen was positive for multiple drugs and she has a long hx of substance abuse). Pt also has hx of schizoaffective D/O and PTSD. Not currently taking her medications for unknown amount of time and pt is a poor historian. Pt thinks she is homeless? States she cannot go back to the house where she was living because everyone is trying to kill her. "They want me . They are going to eat me. I thought there was meth in the basement and Hai wanted me to go picker box operator bottles for him but I think it's a scam. I think he's going to hurt me or kill me. I couldn't breathe and I thought they were trying to kill me so I called the police." Pt adds that she is "afraid all the time" and doesn't feel safe anywhere. "They are trying to poison me. People are following me al the time, one ernesto has a hammer. I tried to run. The gas is making me sick because they're all trying to poison me and playing mind games with me. I would rather get a gun and shoot myself because I am so afraid. I don't know what to do. Pt is unable to reports where or when she last received any MH services. Unknown if pt has any supports." Pt appears unkempt, disheveled. Speech is mumbled. Eye contact is poor. She is unsure when she last used any drugs. Unsure when she last saw a psychiatrist or took medications. Feels she has no supports." VITAL SIGNS: See below. NEW TEST RESULTS: See below CURRENT MEDICATIONS: See below. MENTAL STATUS EXAMINATION: Patient is a 28-year old female, who is alert, uncooperative, dressed in hospital clothes, with intense eye contact. Speech: Is rapid, pressured, spontaneous and fluent, loud. Language skills are fair. Thought processes including: circumstantial and tangential, angry thoughts Thought content: focused on being discharged. Bizarre and paranoid delusions, cognitive distortions (anxious thoughts) Description of abnormal or psychotic thoughts: She continues to be paranoid, she becomes easily agitated. Judgment: Poor Insight: Poor Orientation: x 3. Recent and remote memory: limited, she is psychotic. Attention span and concentration: poor. Language: Amharic Fund of knowledge: average. Mood: irritable, angry, anxious. Affect: irritable, anxious, labile, easily angered. DIAGNOSES: 1. Unspecified psychotic disorder 2. R/O drug induced psychosis 3. Polysubstance abuse ASSESSMENT: The patient continues to exhibit paranoid behavior. this writer producer attempted to speak to her once again and she got agitated, she got up from bed, sat down, her voice got louder and louder, saying she wants to get out of here, she wants some food and a place to live, that's all. She is not cooperative, she becomes easily angry, if I talk to her she starts arguing, she doesn't let me speak. I have started on Klonopin 1 mg PO BID because she was positive for amphetamines, cocaine and cannabis. she is probably withdrawing at this time and benzodiazepines would just calm her a little, take the edge of her angry thought/behavior. I will taper her down from these medications once she is able to calm down. She will continue to take her antipsychotic medication (Invega), she has refused to take Depakote. MANAGEMENT PLAN: As above TIME SPENT: 10 minutes. Vital Signs Vital Signs Date Time Temp Pulse Resp B/P (MAP) Pulse Ox O2 Delivery O2 Flow Rate FiO2 09/01/18 07:00 98.1 68 14 107/58 (74) 08/30/18 18:00 99 08/28/18 06:45 Room Air Current Medications Current Medications Acetaminophen (Tylenol Tab) 650 mg Q6HP PRN PO HEADACHE or DISCOMFORT Last administered on 08/31/18at 21:01; Start 08/28/18 at 13:00 Al Hydrox/Mg Hydrox/Simethicone (Mylanta) 30 ml Q4HP PRN PO HE ARTBURN/INDIGESTION; Start 08/28/18 at 13:00 Benztropine Mesylate (Cogentin) 1 mg BID PO Last administered on 09/01/18at 09:27; Start 08/30/18 at 21:00 Clonazepam (KlonoPIN) 1 mg BID PO Last administered on 09/01/18at 11:21; Start 09/01/18 at 09:00 Divalproex Sodium (Depakote) 250 mg BID PO Last administered on 08/31/18at 20:54; Start 08/31/18 at 21:00 Home Med (Med Rec Complete!) ASDIRECTED XX ; Start 08/28/18 at 09:30; Stop 08/28/18 at 09:30; Status DC Levothyroxine Sodium (Synthroid) 100 mcg DAILY@06 PO Last administered on 09/01/18 06:27; Start 08/29/18 at 06:00 Magnesium Hydroxide (Milk Of Magnesia) 30 ml DAILYPRN PRN PO CONSTIPATION; Start 08/28/18 at 13:00 Nitrofurantoin Monoh/Nitrofur Macro (Macrobid) 100 mg BID PO Last administered on 09/01/18 09:27; Start 08/28/18 at 21:00; Stop 09/03/18 at 21:00 Olanzapine (ZyPREXA ZYDIS) 5 mg Q4HP PRN PO ANXIETY/AGITATION; Start 08/29/18 at 20:00; Status Cancel Paliperidone (Invega) 3 mg BID PO Last administered on 08/30/18at 08:09; Start 08/28/18 at 13:30; Stop 08/30/18 at 19:00; Status DC Paliperidone (Invega) 6 mg BID PO Last administered on 09/01/18 09:27; Start 08/30/18 at 21:00 Quetiapine Fumarate (SEROquel) 50 mg QHS PO Last administered on 08/31/18at 20:54; Start 08/31/18 at 21:00 Quetiapine Fumarate (SEROquel) 50 mg TID PO Last administered on 08/30/18at 21:02; Start 08/30/18 at 21:00; Stop 08/31/18 at 17:16; Status DC Quetiapine Fumarate (SEROquel) 100 mg QHS PO Last administered on 08/30/18at 21:02; Start 08/30/18 at 21:00; Stop 08/31/18 at 17:16; Status DC Trazodone HCl (Desyrel) 50 mg QHSP PRN PO INSOMNIA Last administered on 08/29/18at 20:33; Start 08/28/18 at 13:00; Stop 08/30/18 at 18:06; Status DC Vitamin D (Drisdol) 50,000 units @ PO Last administered on 08/29/18at 08:50; Start 08/29/18 at 09:00 Allergies Coded Allergies: haloperidol (Verified Allergy, Unknown, 08/15/18) nickel (Verified Allergy, Unknown, 08/15/18) ziprasidone (Verified Adverse Reaction, Intermediate, TREMORS, 08/15/18) LISA SOLOMON MD Sep 01, 2018 15:44
[2018-09-01 18:07] VITALS: BP 125/84
[2018-09-01] MEDS: QUEtiapine FUMARATE 50 MG TAB PO SCH (20:41)
[2018-09-02] MEDS: LEVOTHYROXINE 100MCG TABLET (0.1MG) PO SCH (06:18)
[2018-09-02 07:12] VITALS: BP 113/64
[2018-09-02] MEDS: PALIPERIDONE 3 MG ER TAB (INVEGA) PO SCH ×2 (09:46→20:47)
[2018-09-02] MEDS: NITROFURANTOIN (MACROBID) 100 MG CAP PO SCH ×2 (09:46→20:46)
[2018-09-02] MEDS: BENZTROPINE 1 MG TAB PO SCH ×2 (09:46→20:46)
[2018-09-02] MEDS: clonazePAM 1 MG TAB PO SCH ×2 (09:46→20:46)
[2018-09-02] MEDS: DIVALPROEX 250 MG TAB PO SCH ×2 (09:52→20:46)
[2018-09-02 18:00] VITALS: BP 116/72
[2018-09-02] MEDS: QUEtiapine FUMARATE 50 MG TAB PO SCH (20:46)
[2018-09-03] MEDS: LEVOTHYROXINE 100MCG TABLET (0.1MG) PO SCH (06:33)
[2018-09-03 06:35] VITALS: BP 115/73
[2018-09-03] MEDS: PALIPERIDONE 3 MG ER TAB (INVEGA) PO SCH ×2 (09:33→21:39)
[2018-09-03] MEDS: DIVALPROEX 250 MG TAB PO SCH ×2 (09:33→21:39)
[2018-09-03] MEDS: BENZTROPINE 1 MG TAB PO SCH ×2 (09:33→21:38)
[2018-09-03] MEDS: clonazePAM 1 MG TAB PO SCH ×2 (09:33→21:38)
[2018-09-03] MEDS: NITROFURANTOIN (MACROBID) 100 MG CAP PO SCH ×2 (09:33→21:39)
[2018-09-03 18:00] VITALS: BP 119/74
[2018-09-03] MEDS: QUEtiapine FUMARATE 50 MG TAB PO SCH (21:39)
[2018-09-04] MEDS: LEVOTHYROXINE 100MCG TABLET (0.1MG) PO SCH (06:02)
[2018-09-04 06:37] VITALS: BP 117/69
[2018-09-04] MEDS: PALIPERIDONE 3 MG ER TAB (INVEGA) PO SCH ×2 (09:35→20:13)
[2018-09-04] MEDS: BENZTROPINE 1 MG TAB PO SCH ×2 (09:35→20:13)
[2018-09-04] MEDS: DIVALPROEX 250 MG TAB PO SCH ×2 (09:35→20:13)
[2018-09-04] MEDS: clonazePAM 1 MG TAB PO SCH (09:35)
--- NOTE | 2018-09-04 16:51 | MHIPNPDOC ---
[facility] Progress Note Progress Note DATE OF SERVICE: 09/04/18 HISTORY: CHIEF COMPLAINT: Psychosis most likely secondary to drug abuse HISTORY OF PRESENT ILLNESS: Patient is a 28-year-old female, who as per ED report: Pt presented with EMS last night after calling police stating she was afraid for her life, also unsure if she had used any drugs. (Pt's tox screen was positive for multiple drugs and she has a long hx of substance abuse). Pt also has hx of schizoaffective D/O and PTSD. Not currently taking her medications for unknown amount of time and pt is a poor historian. Pt thinks she is homeless? States she cannot go back to the house where she was living because everyone is trying to kill her. "They want me . They are going to eat me. I thought there was meth in the basement and Hai wanted me to go pick pack worker bottles for him but I think it's a scam. I think he's going to hurt me or kill me. I couldn't breathe and I thought they were trying to kill me so I called the police." Pt adds that she is "afraid all the time" and doesn't feel safe anywhere. "They are trying to poison me. People are following me al the time, one ernesto has a hammer. I tried to run. The gas is making me sick because they're all trying to poison me and playing mind games with me. I would rather get a gun and shoot myself because I am so afraid. I don't know what to do. Pt is unable to reports where or when she last received any MH services. Unknown if pt has any supports." Pt appears unkempt, disheveled. Speech is mumbled. Eye contact is poor. She is unsure when she last used any drugs. Unsure when she last saw a psychiatrist or took medications. Feels she has no supports." VITAL SIGNS: See below. NEW TEST RESULTS: See below CURRENT MEDICATIONS: See below. MENTAL STATUS EXAMINATION: Patient is a 28-year old female, who is alert, a little more cooperative, dressed in hospital clothes, with intense eye contact. Speech: Is rapid, pressured, spontaneous and fluent, loud. Language skills are fair. Thought processes including: s still disorganized Thought content: focused on being discharged. Bizarre and paranoid delusions, cognitive distortions (anxious thoughts) Description of abnormal or psychotic thoughts: She still is out of touch with reality, she continues to express concerns about housing but no real concerns about her substance abuse or her mental illness. She doesn't seem to be responding to internal stimuli today. She is still defensive, still paranoid. Judgment: Poor Insight: Poor Orientation: x 3. Recent and remote memory: limite. Attention span and concentration: poor. Language: Kenyan Fund of knowledge: somewhat limited. Mood: irritable, angry, anxious. Affect: irritable, anxious, labile, easily angered. DIAGNOSES: 1. Unspecified psychotic disorder 2. R/O drug induced psychosis 3. Polysubstance abuse ASSESSMENT: The patient continues to be irritable, but she has improved, she is less impulsive than she was before. She still continues to refuse some of her medications and this advertising copy writer told her that I would start tapering her off the Klonopin, so, that she would receive 1 mg tonight and 0.5 mgs tomorrow morning, 0.5 mg tomorrow night and nothing on Tuesday morning. she says she doesn't care about receiving Klonopin, she can be discharged without being tapered from it. She once again says that nobody is helping her but she really doesn't allow staff members to speak with her for a long time because she starts being demanding and loud, irritable, even when she says she is not violent. MANAGEMENT PLAN: As above TIME SPENT: 10 minutes. Vital Signs Vital Signs Date Time Temp Pulse Resp B/P (MAP) Pulse Ox O2 Delivery O2 Flow Rate FiO2 09/04/18 06:37 97.1 79 14 117/69 (85) 08/30/18 18:00 99 Current Medications Current Medications Acetaminophen (Tylenol Tab) 650 mg Q6HP PRN PO HEADACHE or DISCOMFORT Last administered on 08/31/18at 21:01; Start 08/28/18 at 13:00 Al Hydrox/Mg Hydrox/Simethicone (Mylanta) 30 ml Q4HP PRN PO HEARTBURN/INDIGESTION; Start 08/28/18 at 13:00 Benztropine Mesylate (Cogentin) 1 mg BID PO Last administered on 09/04/18at 09:35; Start 08/30/18 at 21:00 Clonazepam (KlonoPIN) 1 mg BID PO Last administered on 09/04/18at 09:35; Start 09/01/18 at 09:00 Divalproex Sodium (Depakote) 250 mg BID PO Last administered on 09/04/18at 09:35; Start 08/31/18 at 21:00 Home Med (Med Rec Complete!) ASDIRECTED XX ; Start 08/28/18 at 09:30; Stop 08/28/18 at 09:30; Status DC Levothyroxine Sodium (Synthroid) 100 mcg DAILY@06 PO Last administered on 09/04/18at 06:02; Start 08/29/18 at 06:00 Magnesium Hydroxide (Milk Of Magnesia) 30 ml DAILYPRN PRN PO CONSTIPATION; Start 08/28/18 at 13:00 Miscellaneous (Unresolved Clarification Entry) SEE LABEL COMMENTS DAILY XX ; Start 09/04/18 at 09:00 Nitrofurantoin Monoh/Nitrofur Macro (Macrobid) 100 mg BID PO Last administered on 09/03/18at 21:39; Start 08/28/18 at 21:00; Stop 09/03/18 at 21:00; Status DC Olanzapine (ZyPREXA ZYDIS) 5 mg Q4HP PRN PO ANXIETY/AGITATION; Start 08/29/18 at 20:00; Status Cancel Paliperidone (Invega) 3 mg BID PO Last administered on 08/30/18at 08:09; Start 08/28/18 at 13:30; Stop 08/30/18 at 19:00; Status DC Paliperidone (Invega) 6 mg BID PO Last administered on 09/04/18at 09:35; Start 08/30/18 at 21:00 Quetiapine Fumarate (SEROquel) 50 mg QHS PO Last administered on 09/03/18at 21:39; Start 08/31/18 at 21:00 Quetiapine Fumarate (SEROquel) 50 mg TID PO Last administered on 08/30/18at 21:02; Start 08/30/18 at 21:00; Stop 08/31/18 at 17:16; Status DC Quetiapine Fumarate (SEROquel) 100 mg QHS PO Last administered on 08/30/18at 21:02; Start 08/30/18 at 21:00; Stop 08/31/18 at 17:16; Status DC Trazodone HCl (Desyrel) 50 mg QHSP PRN PO INSOMNIA Last administered on 08/29/18at 20:33; Start 08/28/18 at 13:00; Stop 08/30/18 at 18:06; Status DC Vitamin D (Drisdol) 50,000 units @09 PO Last administered on 08/29/18at 08:50; Start 08/29/18 at 09:00 Allergies Coded Allergies: haloperidol (Verified Allergy, Unknown, 08/15/18) nickel (Verified Allergy, Unknown, 08/15/18) ziprasidone (Verified Adverse Reaction, Intermediate, TREMORS, 08/15/18) LISA SOLOMON MD Sep 04, 2018 16:14
[2018-09-04 18:10] VITALS: BP 147/93
[2018-09-04] MEDS: QUEtiapine FUMARATE 50 MG TAB PO SCH (20:35)
[2018-09-04] MEDS ORDERED: clonazePAM 1 MG TAB PO SCH (21:00)
[2018-09-05] MEDS: LEVOTHYROXINE 100MCG TABLET (0.1MG) PO SCH (06:03)
[2018-09-05 06:30] VITALS: BP 117/70
[2018-09-05] MEDS ORDERED: clonazePAM 0.5 MG TAB PO SCH (09:00)
[2018-09-05] MEDS: BENZTROPINE 1 MG TAB PO SCH ×2 (09:40→20:56)
[2018-09-05] MEDS: VITAMIN D 50,000 UNITS CAPSULE (ERGOCALCIFEROL 1.25MG) PO SCH (09:40)
[2018-09-05] MEDS: DIVALPROEX 250 MG TAB PO SCH ×2 (09:40→20:56)
[2018-09-05] MEDS: PALIPERIDONE 3 MG ER TAB (INVEGA) PO SCH ×2 (09:41→20:55)
--- NOTE | 2018-09-05 16:04 | MHIPNPDOC ---
[facility] Progress Note Progress Note DATE OF SERVICE: 09/05/18 HISTORY: CHIEF COMPLAINT: Psychosis most likely secondary to drug abuse HISTORY OF PRESENT ILLNESS: Patient is a 28-year-old female, who as per ED report: Pt presented with EMS last night after calling police stating she was afraid for her life, also unsure if she had used any drugs. (Pt's tox screen was positive for multiple drugs and she has a long hx of substance abuse). Pt also has hx of schizoaffective D/O and PTSD. Not currently taking her medications for unknown amount of time and pt is a poor historian. Pt thinks she is homeless? States she cannot go back to the house where she was living because everyone is trying to kill her. "They want me . They are going to eat me. I thought there was meth in the basement and Hai wanted me to go garbage pick up man bottles for him but I think it's a scam. I think he's going to hurt me or kill me. I couldn't breathe and I thought they were trying to kill me so I called the police." Pt adds that she is "afraid all the time" and doesn't feel safe anywhere. "They are trying to poison me. People are following me al the time, one ernesto has a hammer. I tried to run. The gas is making me sick because they're all trying to poison me and playing mind games with me. I would rather get a gun and shoot myself because I am so afraid. I don't know what to do. Pt is unable to reports where or when she last received any MH services. Unknown if pt has any supports." Pt appears unkempt, disheveled. Speech is mumbled. Eye contact is poor. She is unsure when she last used any drugs. Unsure when she last saw a psychiatrist or took medications. Feels she has no supports." VITAL SIGNS: See below. NEW TEST RESULTS: See below CURRENT MEDICATIONS: See below. MENTAL STATUS EXAMINATION: Patient is a 28-year old female, who is alert, a little more cooperative, dressed in hospital clothes, with intense eye contact. Speech: Is rapid, spontaneous, fluent, lod Language skills are fair. Thought processes including: disorganized, less tangential but not coherent Thought content: Anxious thoughts, paranoid thoughts, bizarre delusions Description of abnormal or psychotic thoughts: Paranoid and bizarre thoughts, anxious thoughts, denies SI/denies HI, denies AV hallucinations but she might still be responding to internal stimuli Judgment: Poor Insight: Poor Orientation: x 3. Recent and remote memory: limited Attention span and concentration: poor. Language: Malay Fund of knowledge: somewhat limited. Mood: very anxious. Affect: anxious, labile ( she becomes tearful out of fear). DIAGNOSES: 1. Unspecified psychotic disorder 2. R/O drug induced psychosis 3. Polysubstance abuse ASSESSMENT: The patient was very talkative today. She was not threatening, she was not irritable, she was very anxious, she wanted to make sure I tell messenger office, Clotilde Leos, that she needs to go to "the [facility]" on [facility], where she thinks she will be able to lock her door and be safe. Patient is extremely anxious, she thinks people are out to get her because they think that "she is a snitch" but she is not a snitch, she only left the hours she had been staying with her friends because it was not safe for her to be there (drug related activities) and then she went and stayed at a friend's house but she felt a terrible smell coming out of some boxes, she i sure they were human parts, then she felt there was no oxygen in there, maybe carbon monoxide and she felt she couldn't breathe. she thnks someone was trying to kill her, she thinks that she has heard gunshots at night while she was not at the Hospital, close to [facility] and she thinks it's the that are trying to kill her. she continues to be delusional. will start her on gabapentin 300 mgs PO TID and will increase Seroquel to 100 mgs PO QHS MANAGEMENT PLAN: As above TIME SPENT: 10 minutes. Vital Signs Vital Signs Date Time Temp Pulse Resp B/P (MAP) Pulse Ox O2 Delivery O2 Flow Rate FiO2 09/05/18 06:30 97.4 77 14 117/70 (86) 08/30/18 18:00 99 Current Medications Current Medications Acetaminophen (Tylenol Tab) 650 mg Q6HP PRN PO HEADACHE or DISCOMFORT Last administered on 08/31/18at 21:01; Start 08/28/18 at 13:00 Al Hydrox/Mg Hydrox/Simethicone (Mylanta) 30 ml Q4HP PRN PO HEARTBURN/INDIGESTION; Start 08/28/18 at 13:00 Benztropine Mesylate (Cogentin) 1 mg BID PO Last administered on 09/05/18at 09:40; Start 08/30/18 at 21:00 Clonazepam (KlonoPIN) 0.5 mg QAM PO Last administered on 09/05/18at 09:40; Start 09/05/18 at 09:00; Stop 09/05/18 at 11:31; Status DC Clonazepam (KlonoPIN) 0.5 mg QHS PO ; Start 09/05/18 at 21:00 Clonazepam (KlonoPIN) 1 mg BID PO Last administered on 09/04/18at 09:35; Start 09/01/18 at 09:00; Stop 09/04/18 at 15:32; Status DC Clonazepam (KlonoPIN) 1 mg QHS PO Last administered on 09/04/18at 20:13; Start 09/04/18 at 21:00; Stop 09/05/18 at 11:31; Status DC Divalproex Sodium (Depakote) 250 mg BID PO Last administered on 09/05/18at 09:40; Start 08/31/18 at 21:00 Gabapentin (Neurontin) 300 mg TID PO ; Start 09/05/18 at 16:00 Home Med (Med Rec Complete!) ASDIRECTED XX ; Start 08/28/18 at 09:30; Stop 08/28/18 at 09:30; Status DC Levothyroxine Sodium (Synthroid) 100 mcg DAILY@06 PO Last administered on 09/05/18at 06:03; Start 08/29/18 at 06:00 Magnesium Hydroxide (Milk Of Magnesia) 30 ml DAILYPRN PRN PO CONSTIPATION; Start 08/28/18 at 13:00 Miscellaneous (Unresolved Clarification Entry) SEE LABEL COMMENTS DAILY XX ; Start 09/04/18 at 09:00 Nitrofurantoin Monoh/Nitrofur Macro (Macrobid) 100 mg BID PO Last administered on 09/03/18at 21:39; Start 08/28/18 at 21:00; Stop 09/03/18 at 21:00; Status DC Olanzapine (ZyPREXA ZYDIS) 5 mg Q4HP PRN PO ANXIETY/AGITATION; Start 08/29/18 at 20:00; Status Cancel Paliperidone (Invega) 3 mg BID PO Last administered on 08/30/18at 08:09; Start 08/28/18 at 13:30; Stop 08/30/18 at 19:00; Status DC Paliperidone (Invega) 6 mg BID PO Last administered on 09/05/18at 09:41; Start 08/30/18 at 21:00 Quetiapine Fumarate (SEROquel) 50 mg QHS PO Last administered on 09/04/18at 20:35; Start 08/31/18 at 21:00; Stop 09/05/18 at 14:59; Status DC Quetiapine Fumarate (SEROquel) 50 mg TID PO Last administered on 08/30/18at 21:02; Start 08/30/18 at 21:00; Stop 08/31/18 at 17:16; Status DC Quetiapine Fumarate (SEROquel) 100 mg QHS PO Last administered on 08/30/18at 21:02; Start 08/30/18 at 21:00; Stop 08/31/18 at 17:16; Status DC Quetiapine Fumarate (SEROquel) 100 mg QHS PO ; Start 09/05/18 at 21:00 Trazodone HCl (Desyrel) 50 mg QHSP PRN PO INSOMNIA Last administered on 08/29/18at 20:33; Start 08/28/18 at 13:00; Stop 08/30/18 at 18:06; Status DC Vitamin D (Drisdol) 50,000 units @09 PO Last administered on 09/05/18at 09:40; Start 08/29/18 at 09:00 Allergies Coded Allergies: haloperidol (Verified Allergy, Unknown, 08/15/18) nickel (Verified Allergy, Unknown, 08/15/18) ziprasidone (Verified Adverse Reaction, Intermediate, TREMORS, 08/15/18) LISA SOLOMON MD Sep 05, 2018 15:44
[2018-09-05] MEDS: GABAPENTIN 300 MG CAP PO SCH ×2 (16:20→20:56)
[2018-09-05 18:00] VITALS: BP 114/65
[2018-09-05] MEDS: QUEtiapine FUMARATE 50 MG TAB PO SCH (20:55)
[2018-09-05] MEDS: clonazePAM 0.5 MG TAB PO SCH (20:55)
[2018-09-06] MEDS: LEVOTHYROXINE 100MCG TABLET (0.1MG) PO SCH (05:54)
[2018-09-06 06:40] VITALS: BP 118/71
[2018-09-06] MEDS: BENZTROPINE 1 MG TAB PO SCH ×2 (09:04→21:19)
[2018-09-06] MEDS: DIVALPROEX 250 MG TAB PO SCH ×2 (09:04→21:18)
[2018-09-06] MEDS: GABAPENTIN 300 MG CAP PO SCH ×3 (09:04→21:18)
[2018-09-06] MEDS: PALIPERIDONE 3 MG ER TAB (INVEGA) PO SCH ×2 (09:05→21:18)
--- NOTE | 2018-09-06 14:59 | MHIPNPDOC ---
[facility] Progress Note Progress Note DATE OF SERVICE: 09/06/18 HISTORY: CHIEF COMPLAINT: Psychosis most likely secondary to drug abuse HISTORY OF PRESENT ILLNESS: Patient is a 28-year-old female, who as per ED report: Pt presented with EMS last night after calling police stating she was afraid for her life, also unsure if she had used any drugs. (Pt's tox screen was positive for multiple drugs and she has a long hx of substance abuse). Pt also has hx of schizoaffective D/O and PTSD. Not currently taking her medications for unknown amount of time and pt is a poor historian. Pt thinks she is homeless? States she cannot go back to the house where she was living because everyone is trying to kill her. "They want me . They are going to eat me. I thought there was meth in the basement and Hai wanted me to go tow picker bottles for him but I think it's a scam. I think he's going to hurt me or kill me. I couldn't breathe and I thought they were trying to kill me so I called the police." Pt adds that she is "afraid all the time" and doesn't feel safe anywhere. "They are trying to poison me. People are following me al the time, one ernesto has a hammer. I tried to run. The gas is making me sick because they're all trying to poison me and playing mind games with me. I would rather get a gun and shoot myself because I am so afraid. I don't know what to do. Pt is unable to reports where or when she last received any MH services. Unknown if pt has any supports." Pt appears unkempt, disheveled. Speech is mumbled. Eye contact is poor. She is unsure when she last used any drugs. Unsure when she last saw a psychiatrist or took medications. Feels she has no supports." VITAL SIGNS: See below. NEW TEST RESULTS: See below CURRENT MEDICATIONS: See below. MENTAL STATUS EXAMINATION: Patient is a 28-year old female, who is alert, a little more cooperative, dressed in hospital clothes, with intense eye contact. Speech: Is rapid, spontaneous, fluent, lod Language skills are fair. Thought processes including: disorganized, less tangential but not coherent Thought content: Anxious thoughts, paranoid thoughts, bizarre delusions Description of abnormal or psychotic thoughts: Paranoid and bizarre thoughts, anxious thoughts, denies SI/denies HI, denies AV hallucinations but she might still be responding to internal stimuli Judgment: Poor Insight: Poor Orientation: x 3. Recent and remote memory: limited Attention span and concentration: poor. Language: Armenian Fund of knowledge: somewhat limited. Mood: very anxious. Affect: anxious, labile ( she becomes tearful out of fear). DIAGNOSES: 1. Unspecified psychotic disorder 2. R/O drug induced psychosis 3. Polysubstance abuse ASSESSMENT: Mental Status Examination is not very different from yesterday.The patient tells me today that she is becoming more anxious because she doesn't know if she is going to go to penitentiary or if she is going to go to a DSS apartment. she would like to know where she is going because that would decrease her anxiety. She says that Gabapentin is helping her, her anxiety and her pain are decreasing but she has been in bed because it is her way of coping with the uncertainty of where she is going. She will probably will be discharged tomorrow but her Field Property Loss Specialist needs to come and talk to her before we discharge her. Will be receiving Seroquel 25 mgs PO BID,which will help her with her anxiety and remaining psychosis. MANAGEMENT PLAN: As above TIME SPENT: 10 minutes. Vital Signs Vital Signs Date Time Temp Pulse Resp B/P (MAP) Pulse Ox O2 Delivery O2 Flow Rate FiO2 09/06/18 06:40 99.1 79 14 118/71 (87) Current Medications Current Medications Acetaminophen (Tylenol Tab) 650 mg Q6HP PRN PO HEADACHE or DISCOMFORT Last administered on 08/31/18at 21:01; Start 08/28/18 at 13:00 Al Hydrox/Mg Hydrox/Simethicone (Mylanta) 30 ml Q4HP PRN PO HEARTBURN/INDIGESTION; Start 08/28/18 at 13:00 Benztropine Mesylate (Cogentin) 1 mg BID PO Last administered on 09/06/18at 09:04; Start 08/30/18 at 21:00 Clonazepam (KlonoPIN) 0.5 mg QAM PO Last administered on 09/05/18at 09:40; Start 09/05/18 at 09:00; Stop 09/05/18 at 11:31; Status DC Clonazepam (KlonoPIN) 0.5 mg QHS PO Last administered on 09/05/18at 20:55; Start 09/05/18 at 21:00 Clonazepam (KlonoPIN) 1 mg BID PO Last administered on 09/04/18at 09:35; Start 09/01/18 at 09:00; Stop 09/04/18 at 15:32; Status DC Clonazepam (KlonoPIN) 1 mg QHS PO Last administered on 09/04/18at 20:13; Start 09/04/18 at 21:00; Stop 09/05/18 at 11:31; Status DC Divalproex Sodium (Depakote) 250 mg BID PO Last administered on 09/06/18 09:04; Start 08/31/18 at 21:00 Gabapentin (Neurontin) 300 mg TID PO Last administered on 09/06/18 09:04; Start 09/05/18 at 16:00 Home Med (Med Rec Complete!) ASDIRECTED XX ; Start 08/28/18 at 09:30; Stop 08/28/18 at 09:30; Status DC Levothyroxine Sodium (Synthroid) 100 mcg DAILY@06 PO Last administered on 09/06/18 05:54; Start 08/29/18 at 06:00 Magnesium Hydroxide (Milk Of Magnesia) 30 ml DAILYPRN PRN PO CONSTIPATION; Start 08/28/18 at 13:00 Miscellaneous (Unresolved Clarification Entry) SEE LABEL COMMENTS DAILY XX ; Start 09/04/18 at 09:00 Nitrofurantoin Monoh/Nitrofur Macro (Macrobid) 100 mg BID PO Last administered on 09/03/18at 21:39; Start 08/28/18 at 21:00; Stop 09/03/18 at 21:00; Status DC Olanzapine (ZyPREXA ZYDIS) 5 mg Q4HP PRN PO ANXIETY/AGITATION; Start 08/29/18 at 20:00; Status Cancel Paliperidone (Invega) 3 mg BID PO Last administered on 08/30/18at 08:09; Start 08/28/18 at 13:30; Stop 08/30/18 at 19:00; Status DC Paliperidone (Invega) 6 mg BID PO Last administered on 09/06/18 09:05; Start 08/30/18 at 21:00 Quetiapine Fumarate (SEROquel) 50 mg QHS PO Last administered on 09/04/18 20:35; Start 08/31/18 at 21:00; Stop 09/05/18 at 14:59; Status DC Quetiapine Fumarate (SEROquel) 50 mg TID PO Last administered on 08/30/18 21:02; Start 08/30/18 at 21:00; Stop 08/31/18 at 17:16; Status DC Quetiapine Fumarate (SEROquel) 100 mg QHS PO Last administered on 08/30/18 21:02; Start 08/30/18 at 21:00; Stop 08/31/18 at 17:16; Status DC Quetiapine Fumarate (SEROquel) 100 mg QHS PO Last administered on 09/05/18 20:55; Start 09/05/18 at 21:00 Trazodone HCl (Desyrel) 50 mg QHSP PRN PO INSOMNIA Last administered on 08/29/18 20:33; Start 08/28/18 at 13:00; Stop 08/30/18 at 18:06; Status DC Vitamin D (Drisdol) 50,000 units Tu@09 PO Last administered on 09/05/18 09:40; Start 08/29/18 at 09:00 Allergies Coded Allergies: haloperidol (Verified Allergy, Unknown, 08/15/18) nickel (Verified Allergy, Unknown, 08/15/18) ziprasidone (Verified Adverse Reaction, Intermediate, TREMORS, 08/15/18) A-FIB/CHADSVASC A-FIB History Current/History of A-Fib/PAF?: No Current Oral Anticoagulant The: No Age/Risk Factor Scoring CHADSVASC: CHADSVASC Response (Comments) Value Age Risk Factor Age < 65 years old 0 Gender Risk Factor Female 1 Hx of CHF No 0 Hx of HTN No 0 Hx of Stroke/TIA/or VTE No 0 Hx of Diabetes No 0 Hx of Vascular Disease No 0 Total 1 Treatment Treatment ordered: NONE Reason Anticoagulant not given: Not indicated/[id number] LISA SOLOMON MD Sep 06, 2018 14:59
[2018-09-06 18:00] VITALS: BP 140/88
[2018-09-06] MEDS: clonazePAM 0.5 MG TAB PO SCH (21:18)
[2018-09-06] MEDS: QUEtiapine FUMARATE 50 MG TAB PO SCH (21:18)
[2018-09-06] MEDS: QUEtiapine FUMARATE 25 MG TAB PO SCH (21:18)
[2018-09-06] MEDS: ACETAMINOPHEN TAB 650MG DOSE (2X325MG) PO PRN (22:40)
[2018-09-07] MEDS: LEVOTHYROXINE 100MCG TABLET (0.1MG) PO SCH (06:08)
[2018-09-07 07:12] VITALS: BP 100/55
[2018-09-07] MEDS: QUEtiapine FUMARATE 25 MG TAB PO SCH (09:00)
[2018-09-07] MEDS: GABAPENTIN 300 MG CAP PO SCH (09:15)
[2018-09-07] MEDS: DIVALPROEX 250 MG TAB PO SCH (09:15)
[2018-09-07] MEDS: BENZTROPINE 1 MG TAB PO SCH (09:15)
[2018-09-07] MEDS: PALIPERIDONE 3 MG ER TAB (INVEGA) PO SCH (09:15)
[2018-09-07] MEDS ORDERED: DEPA250T32 PO (09:59)
[2018-09-07] MEDS ORDERED: PALI1TAB2 PO (09:59)
[2018-09-07] MEDS ORDERED: QUET1TAB7 PO (09:59)
[2018-09-07] MEDS ORDERED: QUET5TAB PO (09:59)
[2018-09-07] MEDS ORDERED: BENZ-52 PO (09:59)
[2018-09-07] MEDS ORDERED: GABA-843 PO (09:59)
--- NOTE | 2018-09-09 12:29 | MHDSPDOC ---
[facility] Discharge Summary Discharge Summary DATE OF ADMISSION: Aug 28, 2018 at 13:00 DATE OF DISCHARGE: Sep 07, 2018 at 11:20 DISCHARGE DIAGNOSES: 1. Unspecified psychotic disorder, r/o bipolar disorder with psychosis 2. R/O drug induced psychosis 3. Polysubstance abuse 4. Antisocial Personality disorder REASON FOR ADMISSION: CHIEF COMPLAINT: Psychosis most likely secondary to drug abuse HISTORY OF PRESENT ILLNESS: Patient is a 28-year-old female, who as per ED re port: Pt presented with EMS last night after calling police stating she was afraid for her life, also unsure if she had used any drugs. (Pt's tox screen was positive for multiple drugs and she has a long hx of substance abuse). Pt also has hx of schizoaffective D/O and PTSD. Not currently taking her medications for unknown amount of time and pt is a poor historian. Pt thinks she is homeless? States she cannot go back to the house where she was living because everyone is trying to kill her. "They want me . They are going to eat me. I thought there was meth in the basement and Hai wanted me to go bulk picker bottles for him but I think it's a scam. I think he's going to hurt me or kill me. I couldn't breathe and I thought they were trying to kill me so I called the police." Pt adds that she is "afraid all the time" and doesn't feel safe anywhere. "They are trying to poison me. People are following me al the time, one ernesto has a hammer. I tried to run. The gas is making me sick because they're all trying to poison me and playing mind games with me. I would rather get a gun and shoot myself because I am so afraid. I don't know what to do. Pt is unable to reports where or when she last received any MH services. Unknown if pt has any supports." CONSULTANTS INVOLVED: None TREATMENT AND PROGRESS ON THE UNIT : Patient was psychotic, she was responding to internal stimuli, very delusional, very paranoid and guarded. She was easily agitated/angered. It was difficult to speak with her because she yelled and cursed. there was a time when she started walking in circles and was pulling her hair, holding her head with both hands and she repeated several times: "I'm so confused, I'm so confused, everyone is lying to me". Many times she was angry because she said she wanted to [facility] but she needed a place to stay. she didn't focus on her drug addiction, she wanted a fast response as of where she was going to stay upon discharge, but she was facing legal problems, so, one of the possibilities was that she was going to go to assisted once she was discharged. 48 hours before her discharge her thoughts became more clear. This mortgage or loan underwriter had decided to give her Klonopin (nbut this was tapered down and discontinued on her discharge day) because she was withdrawing from cocaine and methamphetamines and this made her feel more irritable. she was kept on Invega since she was admitted to the unit and it helped her with her psychosis. When she cleared up she was able to tell me about several experiences she had days before her admission and these seemed to be delusional thoughts, so, even when she was able to talk, to communicate with me, her stories seemed to have been the result of delusions (paranoid and bizarre where she envisioned her self as a victim of a ring of drug dealers and mafia) She said she was not sleeping well with Trazodone, so, this mortgage or loan underwriter ordered Seroquel 100 mgs PO QHS and 25 mgs PO bid, thinking this medication would have a soothing, calming effect on her. She received Depakote as a mood stabilizer o help control her mood too (250 mgs PO BID). She took Benztropine 1 mg Po BID to prevent EPS, since she was taking two antipsychotics. Since she was very anxious, I ordered Gabapentin 300 mgs PO TID and because this medication has shown good results in people who have been using methamphetamines. the day prior to her discharge, she was very, very anxious, requesting me to tell her Tip Mender to please send her to [facility] to the [facility] in [facility] because over there at least she could have a "real door", and she could put a bolt in there to secure herself inside of her apartment because she was afraid different people (related to drugs) could come and kill her in there. She also knew she could go to assisted and in fact when her Tip Mender told her that her PO had said she would be taken to assisted from our Unit she became angry but there was no other option for her to accept that fact because she knew she had broke the law in more than one occasion. It seemed as if her psychosis had been caused by drugs but it is hard to tell if she had a premorbid condition before she started using drugs. She described a rough chil dhood and upbringing, being homeless, using drugs for several years and all those factors could have contributed to her mental illness. She had Antisocial Personality disorder HOSPITAL COURSE: As above DISCHARGE ASSESSMENT: The patient was not homicidal, not suicidal and was not responding to internal stimuli at the time of her discharge, although she still presented with paranoid delusions MENTAL STATUS EXAMINATION ON DISCHARGE: Patient is a 28-year old female, who is alert, a little more cooperative, dressed in hospital clothes, with intense eye contact. Speech: Is rapid, spontaneous, fluent, loud Language skills are fair. Thought processes including: more organized, but not coherent, circumstantial and tangential Thought content: Anxious thoughts, paranoid thoughts, bizarre delusions Description of abnormal or psychotic thoughts: Paranoid and bizarre thoughts, anxious thoughts, denies SI/denies HI, denies AV hallucinations Judgment: Poor Insight: Poor Orientation: x 3. Recent and remote memory: limited Attention span and concentration: poor. Language: Swedish Fund of knowledge: somewhat limited. Mood: very anxious. Affect: anxious, labile ( [id number]) DIAGNOSES: 1. Unspecified psychotic disorder 2. R/O drug induced psychosis 3. Polysubstance abuse MEDICATIONS ON DISCHARGE: Scheduled Benztropine Mesylate (Benztropine Mesylate) 1 Mg Tablet, 1 MG PO BID for extrapyramidal side effects, #14 Cholecalciferol (Vitamin D3) (Vitamin D3) 2,000 Unit Tablet, 2,000 UNIT PO DAILY, (Reported) Divalproex Sodium (Depakote) 250 Mg Tablet.dr, 250 MG PO BID for mood, #14 Ergocalciferol (Vitamin D2) (Drisdol) 50,000 Unit Capsule, 50,000 UNIT PO QWEEK, (Reported) NEW SCRIPT Gabapentin (Gabapentin) 300 Mg Capsule, 300 MG PO TID for pain/anxiety, #21 Levothyroxine Sodium (Levothyroxine Sodium) 100 Mcg Tab, 100 MCG PO DAILY, (Reported) Paliperidone (Paliperidone ER) 3 Mg Tab.er.24, 6 MG PO BID for psychosis, #28 Quetiapine Fumarate (Quetiapine Fumarate) 25 Mg Tablet, 25 MG PO BID for mood, #14 Quetiapine Fumarate (Quetiapine Fumarate) 50 Mg Tablet, 100 MG PO QHS for mood/insomnia, #14 Scheduled PRN Ondansetron (Ondansetron Odt) 4 Mg Tab.rapdis, 4 MG PO Q6H PRN for NAUSEA, (Reported) PLAN/FOLLOWUP ARRANGEMENTS: . The amount of time spent in the coordination of care for this patient was approximately 30 minutes. Vital Signs/I&Os Vital Signs Date Time Temp Pulse Resp B/P (MAP) Pulse Ox O2 Delivery O2 Flow Rate FiO2 09/07/18 07:12 98.2 85 16 100/55 (70) Medications Scheduled Benztropine Mesylate (Benztropine Mesylate) 1 Mg Tablet, 1 MG PO BID for extrapyramidal side effects, #14 Cholecalciferol (Vitamin D3) (Vitamin D3) 2,000 Unit Tablet, 2,000 UNIT PO DAILY, (Reported) Divalproex Sodium (Depakote) 250 Mg Tablet.dr, 250 MG PO BID for mood, #14 Ergocalciferol (Vitamin D2) (Drisdol) 50,000 Unit Capsule, 50,000 UNIT PO QWEEK, (Reported) NEW SCRIPT Gabapentin (Gabapentin) 300 Mg Capsule, 300 MG PO TID for pain/anxiety, #21 Levothyroxine Sodium (Levothyroxine Sodium) 100 Mcg Tab, 100 MCG PO DAILY, (Reported) Paliperidone (Paliperidone ER) 3 Mg Tab.er.24, 6 MG PO BID for psychosis, #28 Quetiapine Fumarate (Quetiapine Fumarate) 25 Mg Tablet, 25 MG PO BID for mood, #14 Quetiapine Fumarate (Quetiapine Fumarate) 50 Mg Tablet, 100 MG PO QHS for mood/insomnia, #14 Scheduled PRN Ondansetron (Ondansetron Odt) 4 Mg Tab.rapdis, 4 MG PO Q6H PRN for NAUSEA, (Reported) Allergies Coded Allergies: haloperidol (Verified Allergy, Unknown, 08/15/18) nickel (Verified Allergy, Unknown, 4/2/19) ziprasidone (Verified Adverse Reaction, Intermediate, TREMORS, 08/15/18) LISA SOLOMON MD Sep 09, 2018 12:22
== END 2018-09-07 11:20 | DRG 885 ==
LOC: M ED 23:47 → M ED INP 08-28 13:00 → M PSY 08-28 13:45
PROVIDERS: ADMIT Psychiatry & Neurology Psychiatry; ATTEND Psychiatry & Neurology Psychiatry
DX: F31.5 Bipolar disorder, current episode depressed, severe, with psychotic features (principal); N39.0 Urinary tract infection, site not specified; F60.2 Antisocial personality disorder; Z79.899 Other long term (current) drug therapy; Z88.8 Allergy status to other drugs, medicaments and biological substances; E03.9 Hypothyroidism, unspecified; M79.7 Fibromyalgia; B18.2 Chronic viral hepatitis C; E28.2 Polycystic ovarian syndrome; F17.200 Nicotine dependence, unspecified, uncomplicated; F14.90 Cocaine use, unspecified, uncomplicated; F11.90 Opioid use, unspecified, uncomplicated

== ENCOUNTER → 2018-09-26 | Outpatient (REF) | payer OTHER ==
[~2018-09-26] MED LIST changes: +BENZ-52 PO; +D 202000 PO; +DEPA250T32 PO; +DRIS50003 PO; +GABA-843 PO; +PALI1TAB2 PO; +QUET1TAB7 PO; +QUET5TAB PO
[2018-09-26 15:38] LABS: CHLAMYDIA DNA AMPLIFICATION NEGATIVE (NEGATIVE); GC DNA AMPLIFICATION NEGATIVE (NEGATIVE)
== END ==
LOC: M LAB REF 12:59
PROVIDERS: ATTEND Nurse Practitioner Primary Care
DX: R30.0 Dysuria (principal)

== ENCOUNTER 2019-11-05 03:02 | Emergency (ER) | payer MEDICARE, MEDICAID ==
[~2019-11-05] VITALS: Ht 167.6 cm; Wt 81.8 kg
[~2019-11-05 03:02] MED LIST changes: +CLON0.5T2 PO; -CLON0.5T8 PO; -OMEP40CA2; +OMEP40CA97; +QUET100T2; +QUET100T2 PO; -QUET1TAB8; -QUET1TAB8 PO; -QUET1TAB9 PO; +QUET200T2 PO; -TRAZ-160 PO; -TRAZ-163 PO; +TRAZ-252 PO; +TRAZ-257 PO
[2019-11-05 03:33] LABS: HEMATOCRIT 36.2 % (36.0-47.0); HEMOGLOBIN 12.3 g/dl (12.0-15.5); MEAN CORPUSCULAR HEMOGLOBIN 29.4 pg (27.0-33.0); MEAN CORPUSCULAR VOLUME 86.4 fl (80.0-96.0); PLATELET COUNT, AUTOMATED 217 10^3/uL (150-450); RED BLOOD COUNT 4.19 10^6/uL (4.00-5.40)
[2019-11-05 03:50] LABS: HCG, SERUM QUALITATIVE NEGATIVE (NEGATIVE)
[2019-11-05 03:55] LABS: AMPHETAMINES LEVEL URINE NEGATIVE (NEGATIVE); BARBITURATES URINE NEGATIVE (NEGATIVE); BENZODIAZEPINES URINE NEGATIVE (NEGATIVE); CANNABINOIDS URINE NEGATIVE (NEGATIVE); COCAINE METABOLITE URINE NEGATIVE (NEGATIVE); METHADONE URINE NEGATIVE (NEGATIVE); OPIATES URINE NEGATIVE (NEGATIVE); PHENCYCLIDINE URINE NEGATIVE (NEGATIVE)
[2019-11-05 04:28] LABS: ACETAMINOPHEN LEVEL < 2.0 UG/ML (10.0-30.0); ALBUMIN 3.9 GM/DL (3.2-5.2); ALT/SGPT 19 U/L (12-78); BILIRUBIN,DIRECT < 0.1 MG/DL (0.0-0.2); BILIRUBIN,TOTAL 0.3 MG/DL (0.2-1.0); BLOOD UREA NITROGEN 16 MG/DL (7-18); CALCIUM LEVEL 9.1 MG/DL (8.5-10.1); CARBON DIOXIDE LEVEL 21 MEQ/L (21-32); CHLORIDE LEVEL 112 MEQ/L (98-107); ETHYL ALCOHOL (ETHANOL) < 0.003 % (0.000-0.010); GLOMERULAR FILTRATION RATE > 60.0 (>60); GLUCOSE, FASTING 65 MG/DL (70-100); POTASSIUM SERUM 3.5 MEQ/L (3.5-5.1); SALICYLATE LEVEL 2.4 MG/DL (5.0-30.0); SODIUM LEVEL 143 MEQ/L (136-145); TOTAL PROTEIN 7.4 GM/DL (6.4-8.2)
[2019-11-05 06:25] VITALS: BP 153/95
== END 2019-11-05 09:47 | disposition home or self-care (01) ==
LOC: M ED 03:02
DX: F32.9 Major depressive disorder, single episode, unspecified (principal); F17.210 Nicotine dependence, cigarettes, uncomplicated; F12.90 Cannabis use, unspecified, uncomplicated; F90.9 Attention-deficit hyperactivity disorder, unspecified type; F25.9 Schizoaffective disorder, unspecified; Q61.3 Polycystic kidney, unspecified; Z98.51 Tubal ligation status; Z79.899 Other long term (current) drug therapy; Z88.8 Allergy status to other drugs, medicaments and biological substances; Z91.048 Other nonmedicinal substance allergy status
CPT/HCPCS: 36415; 80048; 80076; 80307; 84443; 84703; 85027; 99284; G0480

== ENCOUNTER → 2020-10-01 | Outpatient (CLI) | payer MEDICARE, MEDICAID ==
[~2020-10-01] MED LIST changes: +GABA-282 PO; -GABA-843 PO; +MIRT-60 PO; -QUET1TAB7 PO; +QUET25TA3 PO; +QUET50TA3 PO; -QUET5TAB PO; -REME30TA PO
== END ==
LOC: M OUTALCOH 07:54
PROVIDERS: ATTEND Psychiatry & Neurology Psychiatry
DX: F12.20 Cannabis dependence, uncomplicated (principal)

== ENCOUNTER 2020-10-08 13:22 | Outpatient (RCR) | payer MEDICARE, MEDICAID | END 2020-10-13 | LOC: M OUTALCOH 13:22 | PROVIDERS: ATTEND Psychiatry & Neurology Psychiatry | DX: F12.20 Cannabis dependence, uncomplicated (principal); F17.200 Nicotine dependence, unspecified, uncomplicated ==

== ENCOUNTER 2020-10-25 13:03 | Emergency (ER) | payer MEDICARE, MEDICAID ==
[~2020-10-25] VITALS: Ht 167.6 cm; Wt 75.0 kg
[2020-10-25] MEDS ORDERED: LEVO100T5 PO (13:55)
[2020-10-25] MEDS ORDERED: ZYPR15TA PO (13:55)
[2020-10-25] MEDS ORDERED: FLON1SPR NARES (13:56)
[2020-10-25 14:41] VITALS: BP 148/75
== END 2020-10-25 14:45 | disposition home or self-care (01) ==
LOC: M ED 13:03
DX: Z76.0 Encounter for issue of repeat prescription (principal); H65.02 Acute serous otitis media, left ear; E03.9 Hypothyroidism, unspecified; B19.20 Unspecified viral hepatitis C without hepatic coma; F25.9 Schizoaffective disorder, unspecified; F43.10 Post-traumatic stress disorder, unspecified; F31.9 Bipolar disorder, unspecified; E28.2 Polycystic ovarian syndrome; M79.7 Fibromyalgia; F17.200 Nicotine dependence, unspecified, uncomplicated; Z88.8 Allergy status to other drugs, medicaments and biological substances; Z79.899 Other long term (current) drug therapy; Z79.890 Hormone replacement therapy

== ENCOUNTER 2020-11-02 14:43 | Emergency (ER) | payer MEDICARE, MEDICAID ==
[~2020-11-02] VITALS: Ht 167.6 cm; Wt 77.0 kg
[~2020-11-02 14:43] MED LIST changes: +FLON1SPR NARES; +OMEP40CA4; -OMEP40CA97; +ZYPR15TA PO
[2020-11-02] MEDS ORDERED: SERO200T (14:52)
[2020-11-02] MEDS ORDERED: BUPR150T12 (14:52)
[2020-11-02] MEDS ORDERED: GABA-282 PO (17:29)
[2020-11-02] MEDS ORDERED: GABAPENTIN 300 MG CAP PO ONE (17:35)
[2020-11-02 17:45] VITALS: BP 133/81
== END 2020-11-02 17:50 | disposition home or self-care (01) ==
LOC: M ED 14:43
DX: G50.0 Trigeminal neuralgia (principal); K21.9 Gastro-esophageal reflux disease without esophagitis; B18.2 Chronic viral hepatitis C; J45.909 Unspecified asthma, uncomplicated; Q61.3 Polycystic kidney, unspecified; Z79.899 Other long term (current) drug therapy; Z88.8 Allergy status to other drugs, medicaments and biological substances

== ENCOUNTER → 2020-11-12 | Outpatient (RCR) | payer MEDICARE, MEDICAID ==
[~2020-11-12] MED LIST changes: +BUPR150T12; +SERO200T
== END ==
LOC: M OUTALCOH 10-17 13:32
PROVIDERS: ATTEND Psychiatry & Neurology Psychiatry
DX: F12.20 Cannabis dependence, uncomplicated (principal); F17.200 Nicotine dependence, unspecified, uncomplicated

== ENCOUNTER 2020-12-12 13:10 | Outpatient (RCR) | payer MEDICARE, MEDICAID ==
[~2020-12-12 13:10] MED LIST changes: +QUET1TAB17 PO; -QUET25TA3 PO; -QUET50TA3 PO; +QUET50TA4 PO; -SERO200T
[2021-05-23] MEDS ORDERED: BUPR150T12 PO (22:43)
[2021-05-28] MEDS ORDERED: LEVO100T5 PO (10:35)
[2021-05-28] MEDS ORDERED: OLAN1TAB16 PO (10:38)
[2021-05-28] MEDS ORDERED: NICO1DIS12 TD (10:39)
== END 2020-12-13 ==
LOC: M OUTALCOH 13:10
PROVIDERS: ATTEND Psychiatry & Neurology Psychiatry
DX: F12.20 Cannabis dependence, uncomplicated (principal); F17.200 Nicotine dependence, unspecified, uncomplicated

== ENCOUNTER 2021-01-09 15:00 | Outpatient (RCR) | payer MEDICARE, MEDICAID ==
[~2021-01-09 15:00] MED LIST changes: +SERO200T
== END 2021-01-13 ==
LOC: M OUTALCOH 15:00
PROVIDERS: ATTEND Psychiatry & Neurology Psychiatry
DX: F12.20 Cannabis dependence, uncomplicated (principal); F17.200 Nicotine dependence, unspecified, uncomplicated

== ENCOUNTER 2021-01-16 14:35 | Outpatient (RCR) | payer MEDICARE, MEDICAID | END 2021-02-12 | LOC: M OUTALCOH 14:35 | PROVIDERS: ATTEND Psychiatry & Neurology Psychiatry | DX: F12.20 Cannabis dependence, uncomplicated (principal); F17.200 Nicotine dependence, unspecified, uncomplicated ==

== ENCOUNTER 2021-02-04 19:09 | Emergency (ER) | payer MEDICARE, MEDICAID ==
[~2021-02-04] VITALS: Ht 167.6 cm; Wt 73.2 kg
[2021-02-04 19:09] VITALS: BP 140/99
== END 2021-02-04 19:52 | disposition left against medical advice (07) ==
LOC: M ED 19:09
DX: Z53.21 Procedure and treatment not carried out due to patient leaving prior to being seen by health care provider (principal)

== ENCOUNTER 2021-03-11 14:00 | Outpatient (RCR) | payer MEDICARE, MEDICAID | END 2021-03-15 | LOC: M OUTALCOH 14:00 | PROVIDERS: ATTEND Psychiatry & Neurology Psychiatry | DX: F12.20 Cannabis dependence, uncomplicated (principal); F17.200 Nicotine dependence, unspecified, uncomplicated ==

== ENCOUNTER → 2021-03-26 | Outpatient (CLI) | payer MEDICARE, MEDICAID | LOC: M OUTALCOH 08:30 | PROVIDERS: ATTEND Psychiatry & Neurology Psychiatry | DX: F12.10 Cannabis abuse, uncomplicated (principal) ==

== ENCOUNTER 2021-04-28 15:00 | Outpatient (RCR) | payer MEDICARE, MEDICAID | END 2021-05-15 | LOC: M OUTALCOH 15:00 | PROVIDERS: ATTEND Psychiatry & Neurology Psychiatry | DX: F12.20 Cannabis dependence, uncomplicated (principal); F17.200 Nicotine dependence, unspecified, uncomplicated | CPT/HCPCS: H0050 ×2 ==

== ENCOUNTER 2021-06-10 02:05 | Inpatient (IN) | payer MEDICARE, MEDICAID ==
[~2021-06-10] VITALS: Ht 167.6 cm; Wt 72.7 kg
[~2021-06-10 02:05] MED LIST changes: +BUPR150T12 PO; +NICO1DIS12 TD; +OLAN1TAB16 PO; -SERO200T
[2021-06-10] MEDS ORDERED: SYNT100T PO (06:53)
[2021-06-10] MEDS ORDERED: OLAN1TAB20 PO (06:53)
[2021-06-10] MEDS ORDERED: NICO21DI37 TD (06:53)
[2021-06-14 17:53] VITALS: BP 139/86
== END 2021-06-15 13:20 | disposition home or self-care (01) | DRG 885 ==
LOC: M ED 02:05 → M ED INP 06-11 14:31 → M PSY 06-11 19:11
PROVIDERS: ADMIT Psychiatry & Neurology Psychiatry; ATTEND Psychiatry & Neurology Psychiatry
DX: F25.0 Schizoaffective disorder, bipolar type (principal); F43.10 Post-traumatic stress disorder, unspecified; F60.2 Antisocial personality disorder; Z88.8 Allergy status to other drugs, medicaments and biological substances; Z79.899 Other long term (current) drug therapy; E03.9 Hypothyroidism, unspecified; Z91.14 Patient's other noncompliance with medication regimen; M79.7 Fibromyalgia; E28.2 Polycystic ovarian syndrome; B18.2 Chronic viral hepatitis C; F17.200 Nicotine dependence, unspecified, uncomplicated

== ENCOUNTER 2021-06-22 14:17 | Emergency (ER) | payer MEDICARE, MEDICAID ==
[~2021-06-22 14:17] MED LIST changes: +NICO21DI37 TD; +OLAN1TAB20 PO
[2021-06-22 17:46] VITALS: BP 128/87
== END 2021-06-22 17:48 | disposition home or self-care (01) ==
LOC: M ED 14:17
DX: F43.0 Acute stress reaction (principal); R45.851 Suicidal ideations; B19.20 Unspecified viral hepatitis C without hepatic coma; E28.2 Polycystic ovarian syndrome; K21.9 Gastro-esophageal reflux disease without esophagitis; F25.9 Schizoaffective disorder, unspecified; F17.200 Nicotine dependence, unspecified, uncomplicated; F10.10 Alcohol abuse, uncomplicated; Z88.1 Allergy status to other antibiotic agents; Z91.048 Other nonmedicinal substance allergy status; Z79.899 Other long term (current) drug therapy

== ENCOUNTER → 2021-07-15 | Outpatient (CLI) | payer MEDICARE, MEDICAID | LOC: M OUTALCOH 08:00 | PROVIDERS: ATTEND Psychiatry & Neurology Psychiatry | DX: Z13.9 Encounter for screening, unspecified (principal) ==

== ENCOUNTER 2021-08-27 13:48 | Emergency (ER) | payer MEDICARE, MEDICAID ==
[~2021-08-27] VITALS: Ht 167.6 cm; Wt 75.4 kg
[2021-08-27] MEDS ORDERED: QUET200T2 (14:29)
[2021-08-27 18:42] LABS: BASO # 0.1 10^3/uL (0.0-0.2); BASO % 0.4 % (0.0-1.0); EOS # 0.1 10^3/uL (0.0-0.5); EOS % 0.6 % (0.0-3.0); HEMATOCRIT 37.3 % (36.0-47.0); LYMPH # 1.9 10^3/uL (1.5-5.0); MEAN CORPUSCULAR HEMOGLOBIN 30.1 pg (27.0-33.0); MEAN CORPUSCULAR HGB CONC 34.9 g/dl (32.0-36.5); MEAN CORPUSCULAR VOLUME 86.3 fl (80.0-96.0); MONO # 0.9 10^3/uL (0.0-0.8); MONO % 6.3 % (2.0-8.0); NEUTROPHILS # 10.7 10^3/uL (1.5-8.5); NEUTROPHILS % 78.3 % (36.0-66.0); PLATELET COUNT, AUTOMATED 373 10^3/uL (150-450); RED BLOOD COUNT 4.32 10^6/uL (4.00-5.40); WHITE BLOOD COUNT 13.6 10^3/uL (4.0-10.0)
[2021-08-27 19:06] LABS: ALBUMIN 3.2 GM/DL (3.2-5.2); BILIRUBIN,DIRECT 0.2 MG/DL (0.0-0.2); BILIRUBIN,TOTAL 0.5 MG/DL (0.2-1.0); TOTAL PROTEIN 7.7 GM/DL (6.4-8.2)
[2021-08-27] MEDS ORDERED: NS 1,000 ML IV ONE (19:45)
[2021-08-27] MEDS ORDERED: ONDANSETRON 4MG/2ML VIAL IV ONE (19:45)
[2021-08-27] MEDS ORDERED: KETOROLAC 30 MG/ML 1ML VIAL IV ONE (19:45)
[2021-08-27] MEDS ORDERED: ISOVUE-370 76% 100ML VIAL As Ordered ONE (19:57)
[2021-08-27 21:47] VITALS: BP 107/59
[2021-08-27] MEDS ORDERED: BACT800T5 PO (22:46)
[2021-08-27] MEDS ORDERED: COLA100C5 PO (22:48)
== END 2021-08-27 22:55 | disposition home or self-care (01) ==
LOC: M ED 13:48
DX: N83.201 Unspecified ovarian cyst, right side (principal); N39.0 Urinary tract infection, site not specified; I10 Essential (primary) hypertension; J45.909 Unspecified asthma, uncomplicated; E03.9 Hypothyroidism, unspecified; M79.7 Fibromyalgia; K21.9 Gastro-esophageal reflux disease without esophagitis; B19.20 Unspecified viral hepatitis C without hepatic coma; Z87.19 Personal history of other diseases of the digestive system; Z79.899 Other long term (current) drug therapy; Z79.890 Hormone replacement therapy; Z88.8 Allergy status to other drugs, medicaments and biological substances; Z91.048 Other nonmedicinal substance allergy status; F17.210 Nicotine dependence, cigarettes, uncomplicated
CPT/HCPCS: 74177; 80047; 80076; 81001; 83690; 84702; 85025; 87088; 87186; 96361; 96374; 96375; 99284; J1885; J2405; Q9967

== ENCOUNTER 2021-10-22 13:14 | Inpatient (IN) | payer MEDICARE, MEDICAID ==
[~2021-10-22] VITALS: Ht 167.6 cm; Wt 74.0 kg
[~2021-10-22 13:14] MED LIST changes: +COLA100C5 PO
[2021-10-22 15:45] LABS: HEMATOCRIT 40.8 % (36.0-47.0); HEMOGLOBIN 13.9 g/dl (12.0-15.5); MEAN CORPUSCULAR HEMOGLOBIN 29.6 pg (27.0-33.0); MEAN CORPUSCULAR HGB CONC 34.1 g/dl (32.0-36.5); MEAN CORPUSCULAR VOLUME 86.8 fl (80.0-96.0); PLATELET COUNT, AUTOMATED 292 10^3/uL (150-450); WHITE BLOOD COUNT 11.2 10^3/uL (4.0-10.0)
[2021-10-22 16:08] LABS: HCG, SERUM QUALITATIVE NEGATIVE (NEGATIVE)
[2021-10-22 16:09] LABS: ACETAMINOPHEN LEVEL < 2.0 UG/ML (10.0-30.0); ALBUMIN 4.3 GM/DL (3.2-5.2); ALT/SGPT 13 U/L (12-78); BILIRUBIN,DIRECT 0.1 MG/DL (0.0-0.2); BILIRUBIN,TOTAL 0.6 MG/DL (0.2-1.0); BLOOD UREA NITROGEN 18 MG/DL (7-18); CALCIUM LEVEL 9.6 MG/DL (8.5-10.1); CARBON DIOXIDE LEVEL 21 MEQ/L (21-32); CHLORIDE LEVEL 110 MEQ/L (98-107); CREATININE FOR GFR 1.22 MG/DL (0.55-1.30); ETHYL ALCOHOL (ETHANOL) < 0.003 % (0.000-0.010); GLOMERULAR FILTRATION RATE 54.7 (>60); GLUCOSE, FASTING 84 MG/DL (70-100); POTASSIUM SERUM 3.5 MEQ/L (3.5-5.1); SALICYLATE LEVEL 4.1 MG/DL (5.0-30.0); SODIUM LEVEL 142 MEQ/L (136-145); TOTAL PROTEIN 7.6 GM/DL (6.4-8.2)
[2021-10-22 16:10] LABS: AMPHETAMINES LEVEL URINE NEGATIVE (NEGATIVE); BARBITURATES URINE NEGATIVE (NEGATIVE); BENZODIAZEPINES URINE NEGATIVE (NEGATIVE); CANNABINOIDS URINE NEGATIVE (NEGATIVE); COCAINE METABOLITE URINE NEGATIVE (NEGATIVE); METHADONE URINE NEGATIVE (NEGATIVE); OPIATES URINE NEGATIVE (NEGATIVE); PHENCYCLIDINE URINE NEGATIVE (NEGATIVE)
[2021-10-22 16:12] LABS: RSV AMPLIFICATION NEGATIVE (NEGATIVE)
[2021-10-23] MEDS ORDERED: NICOTINE 21MG/24HR 1 EA TRANSDERMAL TD SCH (09:00)
[2021-10-23] MEDS ORDERED: OLANZapine ORAL DISINTEGRATING TAB 5MG PO PRN (13:00)
[2021-10-23] MEDS ORDERED: diphenhydrAMINE 25MG CAP PO PRN (13:00)
[2021-10-23] MEDS ORDERED: MOM 30ML SUSPENSION UDC PO PRN (13:00)
[2021-10-23] MEDS ORDERED: IBUPROFEN 400MG TAB PO PRN (13:00)
[2021-10-23] MEDS ORDERED: traZODone 50 MG TAB PO PRN (13:00)
[2021-10-23] MEDS ORDERED: MAALOX 30 ML SUSP *UDC PO PRN (13:00)
[2021-10-24] MEDS ORDERED: HOME MED LIST COMPLETE! XX SCH (01:55)
[2021-10-24] MEDS ORDERED: LEVOTHYROXINE 100MCG TABLET (0.1MG) PO SCH (06:00)
[2021-10-24] MEDS: NICOTINE 21MG/24HR 1 EA TRANSDERMAL TD SCH (09:00)
[2021-10-24] MEDS ORDERED: ACETAMINOPHEN TAB 650MG DOSE (2X325MG) PO PRN (12:20)
[2021-10-24] MEDS ORDERED: traZODone 50 MG TAB PO PRN (12:20)
[2021-10-24] MEDS ORDERED: MOM 30ML SUSPENSION UDC PO PRN (12:20)
[2021-10-24] MEDS ORDERED: MAALOX 30 ML SUSP *UDC PO PRN (12:20)
[2021-10-24] MEDS ORDERED: OLANZapine ORAL DISINTEGRATING TAB 5MG PO PRN (12:20)
[2021-10-24] MEDS: QUEtiapine FUMARATE 200 MG TAB PO SCH (21:00)
[2021-10-25] MEDS: LEVOTHYROXINE 100MCG TABLET (0.1MG) PO SCH (05:33)
[2021-10-25] MEDS: NICOTINE 21MG/24HR 1 EA TRANSDERMAL TD SCH (09:00)
[2021-10-25 17:54] LABS: BLOOD UREA NITROGEN 16 MG/DL (7-18); CALCIUM LEVEL 8.5 MG/DL (8.5-10.1); CARBON DIOXIDE LEVEL 25 MEQ/L (21-32); CHLORIDE LEVEL 111 MEQ/L (98-107); CREATININE FOR GFR 1.03 MG/DL (0.55-1.30); FREE T4 0.92 NG/DL (0.76-1.46); GLOMERULAR FILTRATION RATE > 60.0 (>60); GLUCOSE, FASTING 84 MG/DL (70-100); SODIUM LEVEL 141 MEQ/L (136-145)
[2021-10-25] MEDS: QUEtiapine FUMARATE 200 MG TAB PO SCH (21:03)
[2021-10-26] MEDS: LEVOTHYROXINE 100MCG TABLET (0.1MG) PO SCH ×2 (05:15→13:18)
[2021-10-26] MEDS: NICOTINE 21MG/24HR 1 EA TRANSDERMAL TD SCH (08:25)
[2021-10-26] MEDS: risperiDONE 2 MG TAB PO SCH ×2 (13:15→21:55)
[2021-10-26] MEDS: QUEtiapine FUMARATE 200 MG TAB PO SCH (21:00)
[2021-10-27] MEDS: risperiDONE 2 MG TAB PO SCH ×2 (08:50→20:12)
[2021-10-27] MEDS: LEVOTHYROXINE 100MCG TABLET (0.1MG) PO SCH (08:51)
[2021-10-27] MEDS: NICOTINE 21MG/24HR 1 EA TRANSDERMAL TD SCH (08:51)
[2021-10-27] MEDS: QUEtiapine FUMARATE 200 MG TAB PO SCH (20:12)
[2021-10-27] MEDS: DIVALPROEX 500MG *ER* TAB PO SCH (20:14)
[2021-10-28] MEDS: risperiDONE 2 MG TAB PO SCH ×3 (09:00→21:45)
[2021-10-28] MEDS: NICOTINE 21MG/24HR 1 EA TRANSDERMAL TD SCH (09:00)
[2021-10-28] MEDS: LEVOTHYROXINE 100MCG TABLET (0.1MG) PO SCH (10:43)
[2021-10-28] MEDS ORDERED: risperiDONE LONG-ACTING 37.5 MG/2 ML INJ (J2794 PER 0.5MG) IM SCH (14:00)
[2021-10-28 18:29] VITALS: BP 112/67
[2021-10-28] MEDS: DIVALPROEX 500MG *ER* TAB PO SCH (21:00)
[2021-10-28] MEDS: QUEtiapine FUMARATE 200 MG TAB PO SCH (21:00)
[2021-10-29] MEDS: LEVOTHYROXINE 100MCG TABLET (0.1MG) PO SCH (05:55)
[2021-10-29] MEDS: risperiDONE 2 MG TAB PO SCH (10:16)
[2021-10-29] MEDS: NICOTINE 21MG/24HR 1 EA TRANSDERMAL TD SCH (10:16)
[2021-10-29] MEDS ORDERED: RISP-9 PO (12:08)
[2021-10-29] MEDS ORDERED: QUET200T2 PO (12:08)
[2021-10-29] MEDS ORDERED: NICO21PAT TD (12:08)
== END 2021-10-29 13:19 | disposition home or self-care (01) | DRG 885 ==
LOC: M ED 13:14 → M ED INP 10-24 12:17 → M PSY 10-24 13:18
PROVIDERS: ADMIT Student in an Organized Health Care Education/Training Program; ATTEND Student in an Organized Health Care Education/Training Program
DX: F25.0 Schizoaffective disorder, bipolar type (principal); F43.10 Post-traumatic stress disorder, unspecified; F79 Unspecified intellectual disabilities; F60.2 Antisocial personality disorder; Z88.8 Allergy status to other drugs, medicaments and biological substances; E03.9 Hypothyroidism, unspecified; M79.7 Fibromyalgia; E28.2 Polycystic ovarian syndrome

== ENCOUNTER 2021-12-05 01:19 | Inpatient (IN) | payer MEDICARE, MEDICAID ==
[~2021-12-05] VITALS: Ht 167.6 cm; Wt 165.0 kg
[~2021-12-05 01:19] MED LIST changes: +NICO21PAT TD; +RISP-9 PO
[2021-12-05 02:04] LABS: HEMATOCRIT 38.2 % (36.0-47.0); HEMOGLOBIN 13.1 g/dl (12.0-15.5); MEAN CORPUSCULAR HEMOGLOBIN 30.8 pg (27.0-33.0); MEAN CORPUSCULAR HGB CONC 34.3 g/dl (32.0-36.5); MEAN CORPUSCULAR VOLUME 89.7 fl (80.0-96.0); PLATELET COUNT, AUTOMATED 273 10^3/uL (150-450); RED BLOOD COUNT 4.26 10^6/uL (4.00-5.40); WHITE BLOOD COUNT 11.7 10^3/uL (4.0-10.0)
[2021-12-05 02:31] LABS: HCG, SERUM QUALITATIVE NEGATIVE (NEGATIVE)
[2021-12-05 02:43] LABS: RSV AMPLIFICATION NEGATIVE (NEGATIVE)
[2021-12-05 02:53] LABS: ACETAMINOPHEN LEVEL < 2.0 UG/ML (10.0-30.0); ALBUMIN 3.9 GM/DL (3.2-5.2); ALT/SGPT 35 U/L (12-78); BILIRUBIN,DIRECT 0.3 MG/DL (0.0-0.2); BILIRUBIN,TOTAL 0.5 MG/DL (0.2-1.0); BLOOD UREA NITROGEN 28 MG/DL (7-18); CARBON DIOXIDE LEVEL 24 MEQ/L (21-32); CHLORIDE LEVEL 110 MEQ/L (98-107); CREATININE FOR GFR 1.27 MG/DL (0.55-1.30); ETHYL ALCOHOL (ETHANOL) 0.007 % (0.000-0.010); GLOMERULAR FILTRATION RATE 52.2 (>60); GLUCOSE, FASTING 92 MG/DL (70-100); POTASSIUM SERUM 3.3 MEQ/L (3.5-5.1); SALICYLATE LEVEL 3.7 MG/DL (5.0-30.0); SODIUM LEVEL 140 MEQ/L (136-145); TOTAL PROTEIN 7.1 GM/DL (6.4-8.2)
[2021-12-05] MEDS ORDERED: POTASSIUM CHLORIDE 10MEQ SR TABLET PO ONE (05:35)
[2021-12-05] MEDS ORDERED: QUET200T2 PO (06:37)
[2021-12-05] MEDS ORDERED: HOME MED LIST COMPLETE! XX SCH (06:40)
[2021-12-05] MEDS ORDERED: ACETAMINOPHEN 325 MG TAB PO ONE (10:35)
[2021-12-05 12:44] LABS: APPEARANCE, URINE HAZY (CLEAR); BACTERIA, URINE AUTO 1+ (NEGATIVE); BILIRUBIN, URINE AUTO NEGATIVE (NEGATIVE); BLOOD, URINE BLOOD NEGATIVE (NEGATIVE); COLOR, URINE YELLOW (YELLOW); GLUCOSE, URINE (UA) AUTO NEGATIVE (NEGATIVE); KETONE, URINE AUTO NEGATIVE (NEGATIVE); LEUKOCYTE ESTERASE, URINE AUTO 2+ (NEGATIVE); MUCUS, URINE SMALL (NEGATIVE); NITRITE, URINE AUTO NEGATIVE (NEGATIVE); PROTEIN, URINE AUTO 1+ mg/dL (NEGATIVE); RBC, URINE AUTO 3 /HPF (0-3); SPECIFIC GRAVITY URINE AUTO 1.016 (1.002-1.035); SQUAMOUS EPITHELIAL CELL UR AU 19 /HPF (0-6); WBC, URINE AUTO 7 /HPF (0-3)
[2021-12-05 12:58] LABS: AMPHETAMINES LEVEL URINE POSITIVE (NEGATIVE); BARBITURATES URINE NEGATIVE (NEGATIVE); BENZODIAZEPINES URINE NEGATIVE (NEGATIVE); CANNABINOIDS URINE POSITIVE (NEGATIVE); COCAINE METABOLITE URINE NEGATIVE (NEGATIVE); METHADONE URINE NEGATIVE (NEGATIVE); OPIATES URINE NEGATIVE (NEGATIVE); PHENCYCLIDINE URINE NEGATIVE (NEGATIVE)
[2021-12-05] MEDS ORDERED: IBUPROFEN 400MG TAB PO ONE (13:20)
[2021-12-05] MEDS: LEVOTHYROXINE 100MCG TABLET (0.1MG) PO SCH (15:55)
[2021-12-05] MEDS ORDERED: QUEtiapine FUMARATE 200 MG TAB PO SCH (21:00)
[2021-12-06] MEDS: LEVOTHYROXINE 100MCG TABLET (0.1MG) PO SCH (06:00)
[2021-12-06] MEDS: NICOTINE 21MG/24HR 1 EA TRANSDERMAL TD SCH (09:00)
[2021-12-06] MEDS ORDERED: IBUPROFEN 400MG TAB PO ONE (12:50)
[2021-12-06] MEDS ORDERED: MAALOX 30 ML SUSP *UDC PO PRN (18:45)
[2021-12-06] MEDS ORDERED: MOM 30ML SUSPENSION UDC PO PRN (18:45)
[2021-12-06] MEDS ORDERED: traZODone 50 MG TAB PO PRN (18:45)
[2021-12-06] MEDS ORDERED: ACETAMINOPHEN TAB 650MG DOSE (2X325MG) PO PRN (18:45)
[2021-12-06 22:42] VITALS: BP 142/87
[2021-12-06] MEDS ORDERED: LIDOCAINE 5% (LIDODERM) PATCH TD PRN (23:20)
[2021-12-06] MEDS: QUEtiapine FUMARATE 200 MG TAB PO SCH (23:22)
[2021-12-07] MEDS: LEVOTHYROXINE 100MCG TABLET (0.1MG) PO SCH (05:49)
[2021-12-07] MEDS: DICLOFENAC EPOLAMINE 1.3 % PATCH TOP SCH ×2 (09:00→21:00)
[2021-12-07] MEDS: NICOTINE 21MG/24HR 1 EA TRANSDERMAL TD SCH (09:00)
[2021-12-07] MEDS ORDERED: CYCLOBENZAPRINE 10MG TABLET PO ONE (13:25)
[2021-12-07] MEDS ORDERED: ANEXSIA, NORCO 7.5MG/325MG TABLET(HYDROCODONE/APAP) PO PRN (13:30)
[2021-12-07] MEDS ORDERED: ANEXSIA, NORCO 7.5MG/325MG TABLET(HYDROCODONE/APAP) PO ONE (13:30)
[2021-12-07 13:45] VITALS: BP 158/85
[2021-12-07] MEDS: **NOTE PATIENT COMMENT** MISC XX SCH (21:00)
[2021-12-07] MEDS: QUEtiapine FUMARATE 200 MG TAB PO SCH (21:15)
[2021-12-07] MEDS: CYCLOBENZAPRINE 10MG TABLET PO PRN (21:15)
[2021-12-08] MEDS: LEVOTHYROXINE 100MCG TABLET (0.1MG) PO SCH (05:36)
[2021-12-08] MEDS: NICOTINE 21MG/24HR 1 EA TRANSDERMAL TD SCH (08:42)
[2021-12-08] MEDS: DICLOFENAC EPOLAMINE 1.3 % PATCH TOP SCH ×2 (08:42→21:10)
[2021-12-08] MEDS: CYCLOBENZAPRINE 10MG TABLET PO PRN (13:30)
[2021-12-08] MEDS ORDERED: IBUPROFEN 600MG TAB PO PRN (16:35)
[2021-12-08] MEDS: **NOTE PATIENT COMMENT** MISC XX SCH (21:00)
[2021-12-08] MEDS: QUEtiapine FUMARATE 200 MG TAB PO SCH (21:09)
[2021-12-09] MEDS: LEVOTHYROXINE 100MCG TABLET (0.1MG) PO SCH (05:32)
[2021-12-09] MEDS: NICOTINE 21MG/24HR 1 EA TRANSDERMAL TD SCH (09:00)
[2021-12-09] MEDS: DICLOFENAC EPOLAMINE 1.3 % PATCH TOP SCH (09:00)
[2021-12-09] MEDS ORDERED: SYNT100T PO (13:29)
[2021-12-09] MEDS ORDERED: QUET200T2 PO (13:29)
== END 2021-12-09 15:31 | disposition home or self-care (01) | DRG 885 ==
LOC: M ED 01:19 → M ED INP 12-06 18:42 → M PSY 12-06 22:41
PROVIDERS: ADMIT Psychiatry & Neurology Psychiatry; ATTEND Psychiatry & Neurology Psychiatry
DX: F25.0 Schizoaffective disorder, bipolar type (principal); F43.10 Post-traumatic stress disorder, unspecified; F60.2 Antisocial personality disorder; F60.89 Other specific personality disorders; Z88.8 Allergy status to other drugs, medicaments and biological substances; E03.9 Hypothyroidism, unspecified; M79.7 Fibromyalgia; F17.210 Nicotine dependence, cigarettes, uncomplicated

== ENCOUNTER 2021-12-15 05:43 | Emergency (ER) | payer MEDICARE, MEDICAID ==
[2021-12-15 06:17] VITALS: BP 139/90
[2021-12-16] MEDS ORDERED: QUET200T2 PO (11:28)
[2021-12-16] MEDS ORDERED: LEVO100T5 PO (11:28)
== END 2021-12-15 08:00 | disposition left against medical advice (07) ==
LOC: M ED 05:43 → EDBD 05:43 → M ED 08:00
DX: Z53.21 Procedure and treatment not carried out due to patient leaving prior to being seen by health care provider (principal)

== ENCOUNTER 2021-12-16 01:17 | Inpatient (IN) | payer MEDICARE, MEDICAID ==
[~2021-12-16] VITALS: Ht 167.6 cm; Wt 75.0 kg
[2021-12-16 02:06] LABS: HEMATOCRIT 37.7 % (36.0-47.0); HEMOGLOBIN 12.8 g/dl (12.0-15.5); MEAN CORPUSCULAR HEMOGLOBIN 30.5 pg (27.0-33.0); PLATELET COUNT, AUTOMATED 257 10^3/uL (150-450); RED BLOOD COUNT 4.19 10^6/uL (4.00-5.40); WHITE BLOOD COUNT 11.4 10^3/uL (4.0-10.0)
[2021-12-16 02:40] LABS: RSV AMPLIFICATION NEGATIVE (NEGATIVE)
[2021-12-16 02:55] LABS: HCG, SERUM QUALITATIVE NEGATIVE (NEGATIVE)
[2021-12-16 03:13] LABS: ACETAMINOPHEN LEVEL < 2.0 UG/ML (10.0-30.0); ALBUMIN 3.7 GM/DL (3.2-5.2); ALT/SGPT 17 U/L (12-78); BILIRUBIN,DIRECT < 0.1 MG/DL (0.0-0.2); BILIRUBIN,TOTAL 0.1 MG/DL (0.2-1.0); BLOOD UREA NITROGEN 17 MG/DL (7-18); CALCIUM LEVEL 8.5 MG/DL (8.5-10.1); CARBON DIOXIDE LEVEL 26 MEQ/L (21-32); CHLORIDE LEVEL 110 MEQ/L (98-107); CREATININE FOR GFR 1.03 MG/DL (0.55-1.30); ETHYL ALCOHOL (ETHANOL) < 0.003 % (0.000-0.010); GLOMERULAR FILTRATION RATE > 60.0 (>60); GLUCOSE, FASTING 94 MG/DL (70-100); POTASSIUM SERUM 3.9 MEQ/L (3.5-5.1); SODIUM LEVEL 141 MEQ/L (136-145); TOTAL PROTEIN 6.9 GM/DL (6.4-8.2)
[2021-12-16 05:08] LABS: FREE T4 0.75 NG/DL (0.76-1.46)
[2021-12-16 06:36] LABS: AMPHETAMINES LEVEL URINE NEGATIVE (NEGATIVE); BARBITURATES URINE NEGATIVE (NEGATIVE); BENZODIAZEPINES URINE NEGATIVE (NEGATIVE); CANNABINOIDS URINE POSITIVE (NEGATIVE); COCAINE METABOLITE URINE NEGATIVE (NEGATIVE); METHADONE URINE NEGATIVE (NEGATIVE); OPIATES URINE NEGATIVE (NEGATIVE); PHENCYCLIDINE URINE NEGATIVE (NEGATIVE)
[2021-12-16] MEDS ORDERED: LEVO100T5 PO (11:28)
[2021-12-16] MEDS ORDERED: QUET200T2 PO (11:28)
[2021-12-16] MEDS ORDERED: HOME MED LIST COMPLETE! XX SCH (11:30)
[2021-12-17] MEDS ORDERED: OLANZapine ORAL DISINTEGRATING TAB 5MG PO PRN (11:00)
[2021-12-17] MEDS ORDERED: diphenhydrAMINE 25MG CAP PO PRN (11:00)
[2021-12-17] MEDS ORDERED: traZODone 50 MG TAB PO PRN (11:00)
[2021-12-17 11:46] VITALS: BP 147/88
[2021-12-17] MEDS: LEVOTHYROXINE 100MCG TABLET (0.1MG) PO SCH (12:50)
[2021-12-17] MEDS: NICOTINE 21MG/24HR 1 EA TRANSDERMAL TD SCH (12:51)
[2021-12-17] MEDS: QUEtiapine FUMARATE 200 MG TAB PO SCH (20:49)
[2021-12-18] MEDS: LEVOTHYROXINE 100MCG TABLET (0.1MG) PO SCH (05:47)
[2021-12-18] MEDS: NICOTINE 21MG/24HR 1 EA TRANSDERMAL TD SCH (09:00)
[2021-12-18 16:00] VITALS: BP 111/70
[2021-12-18] MEDS: DIVALPROEX 250MG *ER* TAB PO SCH (21:00)
[2021-12-18] MEDS: QUEtiapine FUMARATE 200 MG TAB PO SCH (21:00)
[2021-12-19] MEDS: LEVOTHYROXINE 100MCG TABLET (0.1MG) PO SCH ×2 (05:54→10:07)
[2021-12-19] MEDS: LEVOTHYROXINE 12.5MCG PER 1/2 TAB (0.0125MG) PO SCH (05:54)
[2021-12-19] MEDS: NICOTINE 21MG/24HR 1 EA TRANSDERMAL TD SCH (09:00)
[2021-12-19 16:50] VITALS: BP 148/81
[2021-12-19] MEDS: DIVALPROEX 250MG *ER* TAB PO SCH (21:00)
[2021-12-19] MEDS: QUEtiapine FUMARATE 200 MG TAB PO SCH (21:36)
[2021-12-20] MEDS: LEVOTHYROXINE 12.5MCG PER 1/2 TAB (0.0125MG) PO SCH (05:51)
[2021-12-20] MEDS: LEVOTHYROXINE 100MCG TABLET (0.1MG) PO SCH (05:51)
[2021-12-20 06:38] VITALS: BP 125/58
[2021-12-20] MEDS: QUEtiapine FUMARATE 200 MG TAB PO SCH (20:17)
[2021-12-20] MEDS: DIVALPROEX 250MG *ER* TAB PO SCH (20:17)
[2021-12-21] MEDS: LEVOTHYROXINE 12.5MCG PER 1/2 TAB (0.0125MG) PO SCH (05:42)
[2021-12-21] MEDS: LEVOTHYROXINE 100MCG TABLET (0.1MG) PO SCH (05:42)
[2021-12-21 18:09] VITALS: BP 137/91
[2021-12-21] MEDS: DIVALPROEX 250MG *ER* TAB PO SCH (22:07)
[2021-12-21] MEDS: QUEtiapine FUMARATE 200 MG TAB PO SCH (22:07)
[2021-12-22] MEDS: LEVOTHYROXINE 12.5MCG PER 1/2 TAB (0.0125MG) PO SCH (05:39)
[2021-12-22] MEDS: LEVOTHYROXINE 100MCG TABLET (0.1MG) PO SCH (05:39)
[2021-12-22] MEDS: QUEtiapine FUMARATE 200 MG TAB PO SCH (20:46)
[2021-12-22] MEDS: DIVALPROEX 250MG *ER* TAB PO SCH (20:47)
[2021-12-23] MEDS: LEVOTHYROXINE 100MCG TABLET (0.1MG) PO SCH (05:42)
[2021-12-23] MEDS: LEVOTHYROXINE 12.5MCG PER 1/2 TAB (0.0125MG) PO SCH (05:42)
[2021-12-23] MEDS ORDERED: QUET200T2 PO (14:47)
[2021-12-23] MEDS ORDERED: LEVO25TA5 PO (14:47)
[2021-12-23] MEDS ORDERED: LEVO100T5 PO (14:47)
== END 2021-12-23 16:00 | disposition home or self-care (01) | DRG 885 ==
LOC: M ED 01:17 → M ED INP 12-17 10:59 → M PSY 12-17 11:50
PROVIDERS: ADMIT Student in an Organized Health Care Education/Training Program; ATTEND Psychiatry & Neurology Psychiatry
DX: F25.0 Schizoaffective disorder, bipolar type (principal); F43.10 Post-traumatic stress disorder, unspecified; F79 Unspecified intellectual disabilities; F60.2 Antisocial personality disorder; F60.89 Other specific personality disorders; Z91.14 Patient's other noncompliance with medication regimen; Z59.00 Homelessness unspecified; Z88.8 Allergy status to other drugs, medicaments and biological substances; Z79.899 Other long term (current) drug therapy; E03.9 Hypothyroidism, unspecified; F17.200 Nicotine dependence, unspecified, uncomplicated; R45.850 Homicidal ideations

== ENCOUNTER 2022-12-14 00:45 | Emergency (ER) | payer MEDICARE, MEDICAID ==
[~2022-12-14] VITALS: Ht 167.6 cm; Wt 78.0 kg
[~2022-12-14 00:45] MED LIST changes: -BENZ-52 PO; +BENZ1TAB5 PO; +LEVO25TA5 PO
[2022-12-14] MEDS ORDERED: NS 1,000 ML IV ONE (01:00)
[2022-12-14 01:08] LABS: BASO % 0.6 % (0.0-1.0); EOS # 0.1 10^3/uL (0.0-0.5); EOS % 1.8 % (0.0-3.0); HEMATOCRIT 33.1 % (36.0-47.0); HEMOGLOBIN 11.2 g/dl (12.0-15.5); LYMPH # 2.4 10^3/uL (1.5-5.0); LYMPH % 38.1 % (24.0-44.0); MEAN CORPUSCULAR HEMOGLOBIN 31.4 pg (27.0-33.0); MEAN CORPUSCULAR HGB CONC 33.8 g/dl (32.0-36.5); MEAN CORPUSCULAR VOLUME 92.7 fl (80.0-96.0); MONO # 0.4 10^3/uL (0.0-0.8); MONO % 6.3 % (2.0-8.0); NEUTROPHILS # 3.3 10^3/uL (1.5-8.5); PLATELET COUNT, AUTOMATED 190 10^3/uL (150-450); RED BLOOD COUNT 3.57 10^6/uL (4.00-5.40); WHITE BLOOD COUNT 6.2 10^3/uL (4.0-10.0)
[2022-12-14 01:33] LABS: ETHYL ALCOHOL (ETHANOL) 0.143 % (0.000-0.010)
[2022-12-14 01:35] LABS: ACETAMINOPHEN LEVEL < 2.0 UG/ML (10.0-20.0); ALBUMIN 4.2 G/DL (3.2-5.2); ALKALINE PHOSPHATASE 32 U/L (46-116); ALT/SGPT 11 U/L (7.0-40); AST/SGOT 15 U/L (<34); BILIRUBIN,DIRECT 0.1 MG/DL (<0.4); BILIRUBIN,TOTAL 0.4 MG/DL (0.3-1.2); BLOOD UREA NITROGEN 24 MG/DL (9-23); CALCIUM LEVEL 8.5 MG/DL (8.5-10.1); CARBON DIOXIDE LEVEL 21 MMOL/L (20-31); CHLORIDE LEVEL 112 MMOL/L (98-107); CPK CREATINE PHOSPHOKINASE 652 U/L (34-145); CREATININE FOR GFR 1.37 MG/DL (0.55-1.30); GLOMERULAR FILTRATION RATE 47.6 (>60); GLUCOSE, FASTING 80 MG/DL (60-100); POTASSIUM SERUM 3.5 MMOL/L (3.5-5.1); SALICYLATE LEVEL < 3.0 MG/DL (<30); SODIUM LEVEL 145 MMOL/L (136-145); TOTAL PROTEIN 6.6 G/DL (5.7-8.2)
[2022-12-14 01:47] LABS: HCG, SERUM QUALITATIVE NEGATIVE (NEGATIVE)
[2022-12-14 01:57] LABS: THYROID STIMULATING HORMONE > 150.000 uIU/ML (0.55-4.78)
[2022-12-14] MEDS ORDERED: LEVO25TA5 PO (07:56)
[2022-12-14 08:40] LABS: AMPHETAMINES LEVEL URINE NEGATIVE (NEGATIVE); BARBITURATES URINE NEGATIVE (NEGATIVE); BENZODIAZEPINES URINE NEGATIVE (NEGATIVE); COCAINE METABOLITE URINE NEGATIVE (NEGATIVE); METHADONE URINE NEGATIVE (NEGATIVE); OPIATES URINE NEGATIVE (NEGATIVE); PHENCYCLIDINE URINE NEGATIVE (NEGATIVE)
[2022-12-14 08:45] LABS: CANNABINOIDS URINE POSITIVE (NEGATIVE)
[2022-12-14 08:57] VITALS: BP 109/70; TEMP 97; O2SAT 100
== END 2022-12-14 09:07 | disposition home or self-care (01) ==
LOC: M ED 00:45
DX: F10.129 Alcohol abuse with intoxication, unspecified (principal); E03.9 Hypothyroidism, unspecified; K21.9 Gastro-esophageal reflux disease without esophagitis; I10 Essential (primary) hypertension; M79.7 Fibromyalgia; Z88.8 Allergy status to other drugs, medicaments and biological substances; Z91.048 Other nonmedicinal substance allergy status; Z79.899 Other long term (current) drug therapy

== ENCOUNTER 2023-01-31 15:52 | Inpatient (IN) | payer MEDICARE, MEDICAID ==
[~2023-01-31] VITALS: Ht 167.6 cm; Wt 82.5 kg
[2023-01-31 20:12] LABS: HEMATOCRIT 36.7 % (36.0-47.0); HEMOGLOBIN 12.7 g/dl (12.0-15.5); MEAN CORPUSCULAR HEMOGLOBIN 32.1 pg (27.0-33.0); MEAN CORPUSCULAR HGB CONC 34.6 g/dl (32.0-36.5); MEAN CORPUSCULAR VOLUME 92.7 fl (80.0-96.0); PLATELET COUNT, AUTOMATED 216 10^3/uL (150-450); RED BLOOD COUNT 3.96 10^6/uL (4.00-5.40); WHITE BLOOD COUNT 7.6 10^3/uL (4.0-10.0)
[2023-01-31 20:41] LABS: ETHYL ALCOHOL (ETHANOL) < 0.003 % (0.000-0.010)
[2023-01-31 20:42] LABS: ACETAMINOPHEN LEVEL < 2.0 UG/ML (10.0-20.0); ALBUMIN 3.9 G/DL (3.2-5.2); ALKALINE PHOSPHATASE 38 U/L (46-116); ALT/SGPT 12 U/L (7.0-40); AST/SGOT 10 U/L (<34); BILIRUBIN,DIRECT 0.2 MG/DL (<0.4); BILIRUBIN,TOTAL 0.5 MG/DL (0.3-1.2); BLOOD UREA NITROGEN 20 MG/DL (9-23); CARBON DIOXIDE LEVEL 20 MMOL/L (20-31); CHLORIDE LEVEL 111 MMOL/L (98-107); CREATININE FOR GFR 1.24 MG/DL (0.55-1.30); GLOMERULAR FILTRATION RATE 53.4 (>60); GLUCOSE, FASTING 85 MG/DL (60-100); POTASSIUM SERUM 3.5 MMOL/L (3.5-5.1); SALICYLATE LEVEL < 3.0 MG/DL (<30); SODIUM LEVEL 140 MMOL/L (136-145); TOTAL PROTEIN 6.5 G/DL (5.7-8.2)
[2023-01-31 20:43] LABS: HCG, SERUM QUALITATIVE NEGATIVE (NEGATIVE)
[2023-01-31 20:44] LABS: THYROID STIMULATING HORMONE 140.996 uIU/ML (0.55-4.78)
[2023-01-31] MEDS ORDERED: MED REC IN PROGRESS XX SCH (20:50)
[2023-01-31] MEDS ORDERED: MED REC CURRENTLY UNOBTAINABLE XX SCH (21:05)
[2023-01-31 22:11] LABS: AMPHETAMINES LEVEL URINE NEGATIVE (NEGATIVE)
[2023-01-31 22:12] LABS: BARBITURATES URINE NEGATIVE (NEGATIVE); BENZODIAZEPINES URINE NEGATIVE (NEGATIVE); CANNABINOIDS URINE NEGATIVE (NEGATIVE); COCAINE METABOLITE URINE NEGATIVE (NEGATIVE); METHADONE URINE NEGATIVE (NEGATIVE); OPIATES URINE NEGATIVE (NEGATIVE); PHENCYCLIDINE URINE NEGATIVE (NEGATIVE)
[2023-01-31] MEDS ORDERED: HOME MED LIST COMPLETE! XX SCH (23:05)
[2023-01-31] MEDS ORDERED: SYNT25TA PO (23:05)
[2023-02-01] MEDS: LEVOTHYROXINE 12.5MCG PER 1/2 TAB (0.0125MG) PO SCH ×2 (10:18→11:41)
[2023-02-02] MEDS: LEVOTHYROXINE 12.5MCG PER 1/2 TAB (0.0125MG) PO SCH (06:00)
[2023-02-02] MEDS ORDERED: LORazepam 1 MG TAB PO PRN (13:25)
[2023-02-02] MEDS ORDERED: diphenhydrAMINE 25MG CAP PO PRN (13:25)
[2023-02-02] MEDS ORDERED: IBUPROFEN 400MG TAB PO PRN (13:25)
[2023-02-02] MEDS ORDERED: ACETAMINOPHEN TAB 650MG DOSE (2X325MG) PO PRN (13:25)
[2023-02-02] MEDS ORDERED: traZODone 50 MG TAB PO PRN (13:25)
[2023-02-02] MEDS ORDERED: MOM 30ML SUSPENSION UDC PO PRN (13:25)
[2023-02-02] MEDS ORDERED: MAALOX 30 ML SUSP *UDC PO PRN (13:25)
[2023-02-03] MEDS ORDERED: LEVOTHYROXINE 12.5MCG PER 1/2 TAB (0.0125MG) PO SCH (06:00)
[2023-02-03] MEDS: NICOTINE 21MG/24HR 1 EA TRANSDERMAL TD SCH (10:59)
[2023-02-03 17:55] LABS: FREE THYROXINE INDEX 1.3 % (1.3-4.8); T UPTAKE 27.2 % (22.5-37.0); THYROXINE (T4) 4.7 UG/DL (4.5-10.9)
[2023-02-03 17:58] VITALS: BP 141/86; TEMP 97
[2023-02-03 17:59] LABS: THYROID STIMULATING HORMONE > 150.000 uIU/ML (0.55-4.78)
[2023-02-03] MEDS: QUEtiapine FUMARATE 200 MG TAB PO SCH (21:00)
[2023-02-03] MEDS: DIVALPROEX 250MG *ER* TAB PO SCH (21:45)
[2023-02-04] MEDS: LEVOTHYROXINE 112MCG TABLET (0.112MG) PO SCH ×2 (06:00→09:12)
[2023-02-04] MEDS: NICOTINE 21MG/24HR 1 EA TRANSDERMAL TD SCH (09:11)
[2023-02-04] MEDS: QUEtiapine FUMARATE 200 MG TAB PO SCH (20:25)
[2023-02-04] MEDS: DIVALPROEX 250MG *ER* TAB PO SCH (20:25)
[2023-02-05] MEDS: LEVOTHYROXINE 112MCG TABLET (0.112MG) PO SCH (06:00)
[2023-02-05] MEDS: NICOTINE 21MG/24HR 1 EA TRANSDERMAL TD SCH (09:00)
[2023-02-05 18:41] VITALS: BP 130/85; TEMP 98.5
[2023-02-05] MEDS: DIVALPROEX 250MG *ER* TAB PO SCH (21:00)
[2023-02-05] MEDS: QUEtiapine FUMARATE 200 MG TAB PO SCH (21:00)
[2023-02-06] MEDS: LEVOTHYROXINE 112MCG TABLET (0.112MG) PO SCH ×3 (05:56→09:34)
[2023-02-06] MEDS: NICOTINE 21MG/24HR 1 EA TRANSDERMAL TD SCH (09:35)
[2023-02-06] MEDS: QUEtiapine FUMARATE 200 MG TAB PO SCH (20:33)
[2023-02-06] MEDS: DIVALPROEX 250MG *ER* TAB PO SCH (20:33)
[2023-02-07] MEDS: LEVOTHYROXINE 112MCG TABLET (0.112MG) PO SCH ×2 (06:00→11:09)
[2023-02-07] MEDS: OLANZapine 5 MG TAB PO SCH ×2 (09:00→20:26)
[2023-02-07] MEDS ORDERED: OLANZapine 2.5MG TABLET PO SCH (09:00)
[2023-02-07] MEDS: NICOTINE 21MG/24HR 1 EA TRANSDERMAL TD SCH (09:00)
[2023-02-07] MEDS: DIVALPROEX 250MG *ER* TAB PO SCH (20:26)
[2023-02-07] MEDS: QUEtiapine FUMARATE 200 MG TAB PO SCH (20:26)
[2023-02-08] MEDS: LEVOTHYROXINE 112MCG TABLET (0.112MG) PO SCH (07:24)
[2023-02-08] MEDS: NICOTINE 21MG/24HR 1 EA TRANSDERMAL TD SCH (09:00)
[2023-02-08] MEDS: OLANZapine 5 MG TAB PO SCH ×2 (09:00→20:05)
[2023-02-08] MEDS: DIVALPROEX 250MG *ER* TAB PO SCH (20:05)
[2023-02-08] MEDS: QUEtiapine FUMARATE 200 MG TAB PO SCH (20:05)
[2023-02-09] MEDS: OLANZapine 5 MG TAB PO SCH (09:00)
[2023-02-09] MEDS: NICOTINE 21MG/24HR 1 EA TRANSDERMAL TD SCH (09:00)
[2023-02-09] MEDS: LEVOTHYROXINE 112MCG TABLET (0.112MG) PO SCH (09:29)
[2023-02-09] MEDS ORDERED: LORazepam 1 MG TAB PO PRN (09:50)
[2023-02-09] MEDS ORDERED: OLANZapine ORAL DISINTEGRATING TAB 5MG PO PRN (09:50)
[2023-02-09] MEDS: QUEtiapine FUMARATE 200 MG TAB PO SCH (21:16)
[2023-02-10] MEDS: LEVOTHYROXINE 112MCG TABLET (0.112MG) PO SCH ×2 (06:00→11:27)
[2023-02-10] MEDS: NICOTINE 21MG/24HR 1 EA TRANSDERMAL TD SCH (09:00)
[2023-02-10] MEDS: QUEtiapine FUMARATE 200 MG TAB PO SCH (20:28)
[2023-02-11] MEDS: NICOTINE 21MG/24HR 1 EA TRANSDERMAL TD SCH (09:00)
[2023-02-11] MEDS: LEVOTHYROXINE 112MCG TABLET (0.112MG) PO SCH (12:18)
[2023-02-11] MEDS: risperiDONE 2 MG TAB PO SCH (14:00)
[2023-02-11] MEDS: QUEtiapine FUMARATE 200 MG TAB PO SCH (21:00)
[2023-02-12] MEDS: NICOTINE 21MG/24HR 1 EA TRANSDERMAL TD SCH (09:00)
[2023-02-12] MEDS: risperiDONE 2 MG TAB PO SCH (14:00)
[2023-02-12] MEDS: LEVOTHYROXINE 112MCG TABLET (0.112MG) PO SCH (15:14)
[2023-02-12 16:03] VITALS: BP 137/96; TEMP 97.6; O2SAT 95
[2023-02-12] MEDS: QUEtiapine FUMARATE 200 MG TAB PO SCH (19:56)
[2023-02-13] MEDS: NICOTINE 21MG/24HR 1 EA TRANSDERMAL TD SCH (09:00)
[2023-02-13] MEDS: LEVOTHYROXINE 112MCG TABLET (0.112MG) PO SCH (11:33)
[2023-02-13] MEDS: risperiDONE 2 MG TAB PO SCH (14:00)
[2023-02-13] MEDS: QUEtiapine FUMARATE 200 MG TAB PO SCH (21:18)
[2023-02-14] MEDS: NICOTINE 21MG/24HR 1 EA TRANSDERMAL TD SCH (09:00)
[2023-02-14] MEDS ORDERED: NICO21PAT TD (09:29)
[2023-02-14] MEDS ORDERED: QUET400T2 PO (09:29)
[2023-02-14] MEDS ORDERED: SYNT112T2 PO (09:29)
[2023-02-14] MEDS: LEVOTHYROXINE 112MCG TABLET (0.112MG) PO SCH (09:50)
[2023-02-14] MEDS: risperiDONE 2 MG TAB PO SCH (14:00)
[2023-02-14] MEDS: QUEtiapine FUMARATE 200 MG TAB PO SCH (20:58)
[2023-02-15] MEDS: NICOTINE 21MG/24HR 1 EA TRANSDERMAL TD SCH (09:00)
[2023-02-15] MEDS: LEVOTHYROXINE 112MCG TABLET (0.112MG) PO SCH (09:56)
[2023-02-15] MEDS: risperiDONE 2 MG TAB PO SCH (13:35)
[2023-02-15 17:57] VITALS: BP 132/79; TEMP 98.6; O2SAT 99
[2023-02-15] MEDS: QUEtiapine FUMARATE 200 MG TAB PO SCH (21:00)
[2023-02-16] MEDS: LEVOTHYROXINE 112MCG TABLET (0.112MG) PO SCH (07:40)
[2023-02-16] MEDS: NICOTINE 21MG/24HR 1 EA TRANSDERMAL TD SCH (09:00)
[2023-02-16] MEDS: risperiDONE 2 MG TAB PO SCH (14:51)
[2023-02-16 16:09] VITALS: TEMP 97.5
[2023-02-16] MEDS: QUEtiapine FUMARATE 200 MG TAB PO SCH (21:08)
[2023-02-17] MEDS: LEVOTHYROXINE 112MCG TABLET (0.112MG) PO SCH (06:00)
[2023-02-17] MEDS ORDERED: **PENDING PPD ENTRY XX SCH (09:00)
[2023-02-17] MEDS: NICOTINE 21MG/24HR 1 EA TRANSDERMAL TD SCH (09:00)
[2023-02-17] MEDS ORDERED: TUBERCULIN PPD 5 UNITS/0.1 ML ID ONE (13:00)
[2023-02-17] MEDS: risperiDONE 2 MG TAB PO SCH (13:21)
[2023-02-17] MEDS: QUEtiapine FUMARATE 200 MG TAB PO SCH (21:27)
[2023-02-18] MEDS: NICOTINE 21MG/24HR 1 EA TRANSDERMAL TD SCH (09:00)
[2023-02-18] MEDS ORDERED: TUBERCULIN PPD 5 UNITS/0.1 ML ID ONE (10:00)
[2023-02-18] MEDS: LEVOTHYROXINE 112MCG TABLET (0.112MG) PO SCH (10:29)
[2023-02-18] MEDS: risperiDONE 2 MG TAB PO SCH (14:00)
[2023-02-18] MEDS: QUEtiapine FUMARATE 200 MG TAB PO SCH (20:39)
[2023-02-19] MEDS: NICOTINE 21MG/24HR 1 EA TRANSDERMAL TD SCH (09:00)
[2023-02-19] MEDS ORDERED: PPD DOCUMENTATION ENTRY MISC XX SCH (10:00)
[2023-02-19] MEDS: LEVOTHYROXINE 112MCG TABLET (0.112MG) PO SCH (10:55)
[2023-02-19] MEDS ORDERED: PPD DOCUMENTATION ENTRY MISC XX ONE (13:00)
[2023-02-19] MEDS: risperiDONE 2 MG TAB PO SCH (14:00)
[2023-02-19 18:06] VITALS: BP 122/78; TEMP 97.4
[2023-02-19] MEDS: QUEtiapine FUMARATE 200 MG TAB PO SCH (21:22)
[2023-02-20] MEDS: NICOTINE 21MG/24HR 1 EA TRANSDERMAL TD SCH (09:00)
[2023-02-20] MEDS: LEVOTHYROXINE 112MCG TABLET (0.112MG) PO SCH (10:20)
[2023-02-20] MEDS: risperiDONE 2 MG TAB PO SCH (14:00)
[2023-02-20] MEDS: QUEtiapine FUMARATE 200 MG TAB PO SCH (20:44)
[2023-02-21] MEDS: NICOTINE 21MG/24HR 1 EA TRANSDERMAL TD SCH (09:00)
[2023-02-21] MEDS: LEVOTHYROXINE 112MCG TABLET (0.112MG) PO SCH (09:12)
[2023-02-21 18:06] VITALS: BP 130/74; TEMP 97.1; O2SAT 97
[2023-02-21] MEDS: QUEtiapine FUMARATE 200 MG TAB PO SCH (20:20)
[2023-02-22] MEDS: NICOTINE 21MG/24HR 1 EA TRANSDERMAL TD SCH (09:00)
[2023-02-22] MEDS: LEVOTHYROXINE 112MCG TABLET (0.112MG) PO SCH (09:26)
== END 2023-02-22 15:31 | disposition home or self-care (01) | DRG 885 ==
LOC: M ED 15:52 → M ED INP 02-02 13:22 → M PSY 02-02 15:14
PROVIDERS: ADMIT Student in an Organized Health Care Education/Training Program; ATTEND Student in an Organized Health Care Education/Training Program
DX: F25.0 Schizoaffective disorder, bipolar type (principal); Q61.3 Polycystic kidney, unspecified; Z91.128 Patient's intentional underdosing of medication regimen for other reason; Z88.8 Allergy status to other drugs, medicaments and biological substances; Z79.899 Other long term (current) drug therapy; F17.210 Nicotine dependence, cigarettes, uncomplicated; E03.9 Hypothyroidism, unspecified; M79.7 Fibromyalgia

== ENCOUNTER 2024-08-22 21:07 | Inpatient (IN) | payer MEDICARE, MEDICAID ==
[~2024-08-22] VITALS: Ht 167.6 cm; Wt 82.5 kg
[~2024-08-22 21:07] MED LIST changes: -CYCL5TAB PO; +CYCL5TAB4 PO; +GABA-1172 PO; +GABA-1635; -GABA-282 PO; -GABA800T4; -MIRT-60 PO; +MIRT-89 PO; -OLAN20TA14 PO; +OLAN20TA53 PO; +ONDA-282 PO; -ONDA4TAB6 PO; +QUET400T2 PO; +RISP-106 PO; -RISP-9 PO; +SYNT112T2 PO; +SYNT25TA PO
[2024-08-22 21:40] LABS: HEMATOCRIT 34.5 % (36.0-47.0); HEMOGLOBIN 11.8 g/dl (12.0-15.5); MEAN CORPUSCULAR HEMOGLOBIN 32.6 pg (27.0-33.0); MEAN CORPUSCULAR HGB CONC 34.2 g/dl (32.0-36.5); MEAN CORPUSCULAR VOLUME 95.3 fl (80.0-96.0); PLATELET COUNT, AUTOMATED 247 10^3/uL (150-450); RED BLOOD COUNT 3.62 10^6/uL (4.00-5.40); WHITE BLOOD COUNT 10.5 10^3/uL (4.0-10.0)
[2024-08-22 22:04] LABS: ETHYL ALCOHOL (ETHANOL) 0.133 % (0.000-0.010)
[2024-08-22 22:06] LABS: ALBUMIN 4.1 G/DL (3.2-5.2); ALKALINE PHOSPHATASE 45 U/L (35-104); ALT/SGPT 17 U/L (7.0-40); AST/SGOT 19 U/L (<34); BILIRUBIN,DIRECT < 0.1 MG/DL (<0.4); BILIRUBIN,TOTAL 0.3 MG/DL (0.3-1.2); BLOOD UREA NITROGEN 23 MG/DL (9-23); CALCIUM LEVEL 9.3 MG/DL (8.5-10.1); CARBON DIOXIDE LEVEL 22 MMOL/L (20-31); CHLORIDE LEVEL 111 MMOL/L (98-107); CREATININE FOR GFR 0.98 MG/DL (0.55-1.30); GLOMERULAR FILTRATION RATE 77.7 (>60); GLUCOSE, FASTING 63 MG/DL (60-100); POTASSIUM SERUM 3.8 MMOL/L (3.5-5.1); SALICYLATE LEVEL < 3.0 MG/DL (<30); SODIUM LEVEL 143 MMOL/L (136-145)
[2024-08-22 22:15] LABS: AMPHETAMINES LEVEL URINE NEGATIVE (NEGATIVE); BARBITURATES URINE NEGATIVE (NEGATIVE); BENZODIAZEPINES URINE NEGATIVE (NEGATIVE); CANNABINOIDS URINE NEGATIVE (NEGATIVE); COCAINE METABOLITE URINE NEGATIVE (NEGATIVE); METHADONE URINE NEGATIVE (NEGATIVE); OPIATES URINE NEGATIVE (NEGATIVE); PHENCYCLIDINE URINE NEGATIVE (NEGATIVE)
[2024-08-22 23:02] LABS: THYROID STIMULATING HORMONE > 150.000 uIU/ML (0.55-4.78)
[2024-08-23] MEDS ORDERED: LORazepam 1 MG TAB PO PRN (03:45)
[2024-08-23] MEDS ORDERED: OLANZapine ORAL DISINTEGRATING TAB 5MG PO PRN ×2 (03:45→07:55)
[2024-08-23] MEDS ORDERED: MAALOX 30 ML SUSP *UDC PO PRN (03:45)
[2024-08-23] MEDS ORDERED: IBUPROFEN 400MG TAB PO PRN (03:45)
[2024-08-23] MEDS ORDERED: diphenhydrAMINE 25MG CAP PO PRN (03:45)
[2024-08-23] MEDS ORDERED: traZODone 50 MG TAB PO PRN (03:45)
[2024-08-23] MEDS ORDERED: ACETAMINOPHEN 325 MG TAB PO PRN (03:45)
[2024-08-23] MEDS ORDERED: MOM 30ML SUSPENSION UDC PO PRN (03:45)
[2024-08-23 04:20] VITALS: BP 148/78; TEMP 97.2
[2024-08-23] MEDS: OLANZapine 5 MG TAB PO SCH (09:30)
[2024-08-23] MEDS: LEVOTHYROXINE 150MCG TABLET (0.15MG) PO ONE (12:18)
[2024-08-23] MEDS: MULTIVITAMINS/MINERALS THERAP 1 TAB PO SCH (12:47)
[2024-08-23] MEDS: FOLIC ACID 1MG TAB PO SCH (12:47)
[2024-08-23] MEDS: THIAMINE 100 MG TAB PO SCH (12:47)
[2024-08-23 13:13] LABS: PERCENT SATURATION 42.8 % (13.2-45.0)
[2024-08-23 13:15] LABS: FERRITIN 37.8 NG/ML (7.3-270.7); FOLATE 11.69 NG/ML (>5.4)
[2024-08-23 13:16] LABS: FREE T4 0.4 NG/DL (0.89-1.76)
[2024-08-23] MEDS ORDERED: MED REC CURRENTLY UNOBTAINABLE XX SCH (14:05)
[2024-08-24] MEDS: LEVOTHYROXINE 150MCG TABLET (0.15MG) PO SCH (05:48)
[2024-08-25] MEDS: guaiFENesin ER TABLET 600 MG TAB PO SCH (13:09)
[2024-08-26 14:22] VITALS: BP 130/84
[2024-08-26 15:04] VITALS: BP 130/84; TEMP 98.3; O2SAT 100
[2024-08-26] MEDS ORDERED: AMOXICILLIN 500 MG CAP PO SCH (21:00)
[2024-08-27] MEDS: OLANZapine 10 MG TAB PO SCH (09:07)
[2024-08-27 15:51] VITALS: BP 118/78; TEMP 98.1; O2SAT 99
[2024-08-28 06:36] VITALS: BP 126/88; TEMP 97.1; O2SAT 97
[2024-08-28] MEDS ORDERED: OLAN1TAB20 PO (09:28)
[2024-08-28] MEDS ORDERED: LEVO150T7 PO (09:28)
== END 2024-08-28 12:31 | disposition home or self-care (01) | DRG 885 ==
LOC: M ED 21:07 → M ED INP 08-23 03:42 → M PSY 08-23 04:20
PROVIDERS: ADMIT Psychiatry & Neurology Neurology; ATTEND Psychiatry & Neurology Neurology
DX: F25.0 Schizoaffective disorder, bipolar type (principal); R45.851 Suicidal ideations; F10.20 Alcohol dependence, uncomplicated; F60.2 Antisocial personality disorder; E03.9 Hypothyroidism, unspecified; Z88.8 Allergy status to other drugs, medicaments and biological substances; F17.210 Nicotine dependence, cigarettes, uncomplicated; Z79.899 Other long term (current) drug therapy; Z79.890 Hormone replacement therapy; Z91.148 Patient's other noncompliance with medication regimen for other reason; D64.9 Anemia, unspecified; J06.9 Acute upper respiratory infection, unspecified

== ENCOUNTER 2024-11-18 01:30 | Inpatient (IN) | payer MEDICARE, MEDICAID ==
[~2024-11-18] VITALS: Ht 167.6 cm; Wt 82.6 kg
[~2024-11-18 01:30] MED LIST changes: -AMBI10TA PO; -DEPA250T32 PO; +DIVA-65 PO; +LEVO150T7 PO; -PREG50CA PO; +PREG50CA87 PO; +SYNT150T PO; +ZOLP-533 PO
[2024-11-18 02:24] LABS: PLATELET COUNT, AUTOMATED 263 10^3/uL (150-450)
[2024-11-18 02:49] LABS: ETHYL ALCOHOL (ETHANOL) < 0.003 % (0.000-0.010); SALICYLATE LEVEL < 3.0 MG/DL (<30)
[2024-11-18] MEDS ORDERED: HOME MED LIST COMPLETE! XX SCH (03:20)
[2024-11-18 03:25] LABS: ALT/SGPT 10 U/L (7.0-40); AST/SGOT 15 U/L (<34); CALCIUM LEVEL 9.5 MG/DL (8.5-10.1); CARBON DIOXIDE LEVEL 23 MMOL/L (20-31); CHLORIDE LEVEL 110 MMOL/L (98-107); CREATININE FOR GFR 1.43 MG/DL (0.55-1.30); GLOMERULAR FILTRATION RATE 49.4 (>60); POTASSIUM SERUM 3.6 MMOL/L (3.5-5.1); SODIUM LEVEL 142 MMOL/L (136-145)
[2024-11-18 03:40] LABS: AMPHETAMINES LEVEL URINE NEGATIVE (NEGATIVE); BARBITURATES URINE NEGATIVE (NEGATIVE); BENZODIAZEPINES URINE NEGATIVE (NEGATIVE); CANNABINOIDS URINE NEGATIVE (NEGATIVE); METHADONE URINE NEGATIVE (NEGATIVE); OPIATES URINE NEGATIVE (NEGATIVE); PHENCYCLIDINE URINE NEGATIVE (NEGATIVE)
[2024-11-18 03:43] LABS: COCAINE METABOLITE URINE POSITIVE (NEGATIVE)
[2024-11-18] MEDS: LEVOTHYROXINE 150 MCG TABLET (0.15 MG) PO SCH (06:00)
[2024-11-18 06:25] LABS: FREE T4 0.55 NG/DL (0.89-1.76)
[2024-11-18 08:50] LABS: HCG, SERUM QUALITATIVE NEGATIVE (NEGATIVE)
[2024-11-19] MEDS ORDERED: LEVOTHYROXINE 125 MCG TABLET (0.125 MG) PO SCH (06:00)
[2024-11-19] MEDS: NICOTINE 14 MG/24 HR TRANSDERMAL TD SCH (09:00)
[2024-11-19] MEDS ORDERED: ACETAMINOPHEN 325 MG TAB PO PRN (14:35)
[2024-11-19] MEDS ORDERED: IBUPROFEN 400 MG TAB PO PRN (14:35)
[2024-11-19] MEDS ORDERED: MAALOX 30 ML SUSP *UDC PO PRN (14:35)
[2024-11-19] MEDS ORDERED: LORazepam 1 MG TAB PO PRN (14:35)
[2024-11-19] MEDS ORDERED: traZODone 50 MG TAB PO PRN (14:35)
[2024-11-19] MEDS ORDERED: MOM 30 ML SUSPENSION UDC PO PRN (14:35)
[2024-11-19] MEDS ORDERED: OLANZapine 5 MG TAB PO PRN (14:35)
[2024-11-20] MEDS: LEVOTHYROXINE 150 MCG TABLET (0.15 MG) PO SCH (05:54)
[2024-11-20] MEDS ORDERED: OLANZapine ORAL DISINTEGRATING TAB 5MG PO PRN (09:40)
[2024-11-20] MEDS ORDERED: ACETAMINOPHEN 325 MG TAB PO PRN (09:40)
[2024-11-20] MEDS ORDERED: MOM 30 ML SUSPENSION UDC PO PRN (09:40)
[2024-11-20] MEDS ORDERED: MAALOX 30 ML SUSP *UDC PO PRN (09:40)
[2024-11-20] MEDS ORDERED: IBUPROFEN 400 MG TAB PO PRN (09:40)
[2024-11-20] MEDS ORDERED: OLANZapine 5 MG TAB PO PRN (09:40)
[2024-11-20 10:40] VITALS: BP 113/70; TEMP 97.5; O2SAT 97
[2024-11-20] MEDS: OLANZapine 5 MG TAB PO SCH (14:36)
[2024-11-21] MEDS: LEVOTHYROXINE 150 MCG TABLET (0.15 MG) PO SCH (06:00)
[2024-11-21] MEDS: NICOTINE 14 MG/24 HR TRANSDERMAL TD SCH (09:00)
[2024-11-21] MEDS: traZODone 50 MG TAB PO PRN (21:06)
[2024-11-22 15:28] VITALS: BP 121/78; TEMP 97.5; O2SAT 98
[2024-11-22] MEDS: DIVALPROEX 500 MG *ER* TAB PO SCH (20:28)
[2024-11-23 11:15] VITALS: BP 121/78; TEMP 97.5; O2SAT 98
[2024-11-23 15:14] VITALS: BP 115/74; TEMP 97; O2SAT 100
[2024-11-24 15:03] VITALS: BP 112/73; TEMP 98.3; O2SAT 100
[2024-11-27] MEDS: LORazepam 1 MG TAB PO PRN (13:49)
[2024-11-27 15:15] VITALS: BP 118/80; TEMP 97.6; O2SAT 95
[2024-11-28] MEDS ORDERED: DEPA500T2 PO (09:51)
[2024-11-28] MEDS ORDERED: NICO14PA TD (09:51)
[2024-11-28] MEDS ORDERED: OLAN1TAB16 PO (09:51)
== END 2024-11-28 10:48 | disposition home or self-care (01) | DRG 885 ==
LOC: M ED 01:30 → UNDOADMIN 11-19 14:32 → M ED INP 11-19 14:32 → M PSY 11-20 10:41
PROVIDERS: ADMIT Internal Medicine; ATTEND Internal Medicine
DX: F25.0 Schizoaffective disorder, bipolar type (principal); F41.9 Anxiety disorder, unspecified; F60.2 Antisocial personality disorder; Z88.8 Allergy status to other drugs, medicaments and biological substances; F17.200 Nicotine dependence, unspecified, uncomplicated; F10.20 Alcohol dependence, uncomplicated; E03.9 Hypothyroidism, unspecified; Z79.890 Hormone replacement therapy

== ENCOUNTER 2024-12-06 16:29 | Emergency (ER) | payer MEDICARE, MEDICAID ==
[~2024-12-06 16:29] MED LIST changes: +DEPA500T2 PO; +NICO14PA TD
[2024-12-06 17:23] LABS: PLATELET COUNT, AUTOMATED 290 10^3/uL (150-450)
[2024-12-06 17:30] LABS: KETONE, URINE AUTO RFX NEGATIVE (NEGATIVE); MUCUS, URINE RFX SMALL (NEGATIVE); NITRITE, URINE AUTO RFX NEGATIVE (NEGATIVE); RBC, URINE AUTO RFX 2 /HPF (0-3); SQUAM EPITHELIAL CELL UR AURFX 9 /HPF (0-6); WBC, URINE AUTO RFX 7 /HPF (0-3)
[2024-12-06 17:35] LABS: LEUKOCYTE ESTERASE UR AUTO RFX TRACE (NEGATIVE)
[2024-12-06 17:51] LABS: ETHYL ALCOHOL (ETHANOL) < 0.003 % (0.000-0.010); VALPROIC ACID (DEPAKOTE) < 3.0 UG/ML (50.0-100.0)
[2024-12-06 17:52] LABS: SALICYLATE LEVEL < 3.0 MG/DL (<30)
[2024-12-06 17:53] LABS: ALT/SGPT 15 U/L (7.0-40); AST/SGOT 19 U/L (<34); CALCIUM LEVEL 9.6 MG/DL (8.5-10.1); CARBON DIOXIDE LEVEL 18 MMOL/L (20-31); CHLORIDE LEVEL 107 MMOL/L (98-107); CREATININE FOR GFR 1.29 MG/DL (0.55-1.30); GLOMERULAR FILTRATION RATE 55.9 (>60); POTASSIUM SERUM 3.6 MMOL/L (3.5-5.1); SODIUM LEVEL 140 MMOL/L (136-145)
[2024-12-06 17:55] LABS: FREE T4 0.75 NG/DL (0.89-1.76); HCG, SERUM QUALITATIVE NEGATIVE (NEGATIVE)
[2024-12-06 19:16] LABS: BARBITURATES URINE NEGATIVE (NEGATIVE); BENZODIAZEPINES URINE NEGATIVE (NEGATIVE); COCAINE METABOLITE URINE NEGATIVE (NEGATIVE); METHADONE URINE NEGATIVE (NEGATIVE)
[2024-12-06 19:17] LABS: CANNABINOIDS URINE NEGATIVE (NEGATIVE); OPIATES URINE NEGATIVE (NEGATIVE); PHENCYCLIDINE URINE NEGATIVE (NEGATIVE)
[2024-12-06 19:26] LABS: AMPHETAMINES LEVEL URINE POSITIVE (NEGATIVE)
[2024-12-06] MEDS ORDERED: OLAN1TAB16 PO (20:33)
[2024-12-06] MEDS ORDERED: SYNT150T PO (20:33)
[2024-12-06] MEDS ORDERED: DEPA500T2 PO (20:33)
[2024-12-06] MEDS: LEVOTHYROXINE 150 MCG TABLET (0.15 MG) PO ONE (21:15)
[2024-12-06 22:42] VITALS: BP 132/93; TEMP 98; O2SAT 98
== END 2024-12-06 23:51 | disposition home or self-care (01) ==
LOC: EDBD 16:29 → M ED 16:29
DX: F43.0 Acute stress reaction (principal); E03.9 Hypothyroidism, unspecified; I45.81 Long QT syndrome; F25.9 Schizoaffective disorder, unspecified; F41.9 Anxiety disorder, unspecified; F17.210 Nicotine dependence, cigarettes, uncomplicated; F19.10 Other psychoactive substance abuse, uncomplicated; Z88.8 Allergy status to other drugs, medicaments and biological substances; Z79.899 Other long term (current) drug therapy

== ENCOUNTER 2025-01-22 19:09 | Inpatient (IN) | payer MEDICARE, MEDICAID ==
[~2025-01-22] VITALS: Ht 167.6 cm; Wt 84.9 kg
[~2025-01-22 19:09] MED LIST changes: -VITA500T17 PO; +VITA500T8 PO
[2025-01-22 20:09] LABS: PLATELET COUNT, AUTOMATED 253 10^3/uL (150-450)
[2025-01-22 20:36] LABS: AMPHETAMINES LEVEL URINE NEGATIVE (NEGATIVE); BARBITURATES URINE NEGATIVE (NEGATIVE); COCAINE METABOLITE URINE NEGATIVE (NEGATIVE); METHADONE URINE NEGATIVE (NEGATIVE)
[2025-01-22 20:37] LABS: BENZODIAZEPINES URINE NEGATIVE (NEGATIVE); OPIATES URINE NEGATIVE (NEGATIVE); PHENCYCLIDINE URINE NEGATIVE (NEGATIVE)
[2025-01-22 20:39] LABS: ETHYL ALCOHOL (ETHANOL) < 0.003 % (0.000-0.010)
[2025-01-22 20:40] LABS: SALICYLATE LEVEL < 3.0 MG/DL (<30)
[2025-01-22 20:41] LABS: ALT/SGPT 12 U/L (7.0-40); AST/SGOT 16 U/L (<34); CALCIUM LEVEL 9.3 MG/DL (8.5-10.1); CARBON DIOXIDE LEVEL 24 MMOL/L (20-31); CHLORIDE LEVEL 108 MMOL/L (98-107); CREATININE FOR GFR 1.35 MG/DL (0.55-1.30); GLOMERULAR FILTRATION RATE 52.9 (>60); POTASSIUM SERUM 3.9 MMOL/L (3.5-5.1); SODIUM LEVEL 141 MMOL/L (136-145)
[2025-01-22 20:55] LABS: CANNABINOIDS URINE POSITIVE (NEGATIVE)
[2025-01-22 21:59] LABS: FREE T4 0.34 NG/DL (0.89-1.76)
[2025-01-22] MEDS ORDERED: MOM 30 ML SUSPENSION UDC PO PRN (22:25)
[2025-01-22] MEDS ORDERED: MAALOX 30 ML SUSP *UDC PO PRN (22:25)
[2025-01-22] MEDS ORDERED: ACETAMINOPHEN 325 MG TAB PO PRN (22:25)
[2025-01-23] MEDS ORDERED: OLAN1TAB16 PO (10:03)
[2025-01-23] MEDS ORDERED: DIVA500T9 PO (10:03)
[2025-01-23] MEDS ORDERED: LEVO150T7 PO (10:03)
[2025-01-23] MEDS ORDERED: NICO14DI6 TOP (10:03)
[2025-01-23] MEDS ORDERED: HOME MED LIST COMPLETE! XX SCH (10:05)
[2025-01-23] MEDS: RISPERIDONE 1 MG TAB PO SCH (10:34)
[2025-01-23] MEDS: LEVOTHYROXINE 100 MCG TABLET (0.1 MG) PO SCH (10:34)
[2025-01-23] MEDS: DIVALPROEX 250 MG TAB PO SCH (10:40)
[2025-01-23] MEDS: IBUPROFEN 400 MG TAB PO PRN (10:45)
[2025-01-23] MEDS ORDERED: FLUTICASONE PROPIONATE 0.05% NASAL SPRAY 16 GM NARES ONE (18:55)
[2025-01-23] MEDS: guaiFENesin ER TABLET 600 MG TAB PO ONE (21:08)
[2025-01-23] MEDS: MONTELUKAST 10 MG TAB PO ONE (21:09)
[2025-01-23] MEDS: CETIRIZINE 10 MG TAB PO ONE (21:14)
[2025-01-23] MEDS: FLUTICASONE PROPIONATE 0.05% NASAL SPRAY 16 GM NARES SCH (21:27)
[2025-01-24] MEDS: LEVOTHYROXINE 150 MCG TABLET (0.15 MG) PO SCH (06:00)
[2025-01-24] MEDS: MONTELUKAST 10 MG TAB PO SCH (09:22)
[2025-01-24] MEDS: guaiFENesin ER TABLET 600 MG TAB PO SCH (09:22)
[2025-01-24] MEDS: CETIRIZINE 10 MG TAB PO SCH (09:22)
[2025-01-24 16:04] VITALS: BP 122/82; TEMP 97.9; O2SAT 100
[2025-01-25 15:37] VITALS: BP 119/78; TEMP 98.2; O2SAT 100
[2025-01-25] MEDS: DIVALPROEX 500 MG TAB PO SCH (20:43)
[2025-01-26] MEDS: DIVALPROEX 250 MG TAB PO SCH (08:55)
[2025-01-26] MEDS: traZODone 50 MG TAB PO PRN (20:54)
[2025-01-27 15:01] VITALS: BP 108/67; TEMP 98.3; O2SAT 99
[2025-01-28] MEDS: DIVALPROEX 500 MG TAB PO SCH (20:19)
[2025-01-28] MEDS: BENZTROPINE 1 MG TAB PO SCH (20:20)
[2025-01-29] MEDS ORDERED: CETIRIZINE 10 MG TAB PO PRN (13:30)
[2025-01-29 15:26] VITALS: BP 111/74; TEMP 98.7; O2SAT 99
[2025-01-30] MEDS: LEVOTHYROXINE 75 MCG TABLET (0.075 MG) PO SCH (06:13)
[2025-01-30] MEDS: LEVOTHYROXINE 100 MCG TABLET (0.1 MG) PO SCH (06:13)
[2025-01-30 15:16] VITALS: BP 118/80; TEMP 98.9; O2SAT 96
[2025-01-31 16:50] VITALS: BP 113/86; TEMP 97.9; O2SAT 97
[2025-02-01 15:38] VITALS: BP 110/80; TEMP 98; O2SAT 99
[2025-02-02 15:49] VITALS: BP 112/77; TEMP 98.1; O2SAT 95
[2025-02-02] MEDS: OLANZapine 5 MG TAB PO PRN (18:02)
[2025-02-03 06:37] VITALS: BP 106/59; TEMP 97.4; O2SAT 99
[2025-02-04 15:08] VITALS: BP 127/74; TEMP 98; O2SAT 97
[2025-02-04] MEDS: DIVALPROEX 250 MG TAB PO SCH (20:39)
[2025-02-05] MEDS: PALIPERIDONE PAL 234MG/1.5ML INJ (FREE PSY INPT ONLY) IM ONE (14:38)
[2025-02-05 17:39] VITALS: BP 126/76; TEMP 97.4; O2SAT 100
[2025-02-06] MEDS: NICOTINE 7 MG/24 HR TRANSDERMAL TD SCH (15:04)
[2025-02-06 15:35] VITALS: BP 115/74; TEMP 98.9; O2SAT 98
[2025-02-07 06:39] VITALS: BP 100/59; TEMP 97.6; O2SAT 96
[2025-02-08 06:39] VITALS: BP 104/72; TEMP 96.7; O2SAT 98
[2025-02-08 14:49] VITALS: BP 104/72; TEMP 96.7; O2SAT 98
[2025-02-08 15:12] VITALS: BP 126/78; TEMP 98.1; O2SAT 95
[2025-02-09] MEDS: PALIPERIDONE PAL 156MG/1ML INJ (FREE PSY INPT ONLY) IM ONE (12:59)
[2025-02-09 14:51] VITALS: BP 132/87; TEMP 98; O2SAT 96
[2025-02-10 06:29] VITALS: BP 135/78; TEMP 96.7; O2SAT 94
[2025-02-10] MEDS ORDERED: INVE234I IM (15:00)
[2025-02-10] MEDS ORDERED: LEVO150T7 PO (15:00)
[2025-02-10] MEDS ORDERED: DIVA-65 PO (15:00)
[2025-02-10] MEDS ORDERED: BENZ1TAB5 PO (15:00)
[2025-02-10 16:15] VITALS: BP 126/87; TEMP 98; O2SAT 99
== END 2025-02-11 12:35 | disposition home or self-care (01) | DRG 885 ==
LOC: M ED 19:09 → M ED INP 22:25 → M PSY 22:25 → UNDOADMIN 22:25 → M PSY 23:55
PROVIDERS: ADMIT Student in an Organized Health Care Education/Training Program; ATTEND Internal Medicine
DX: F25.0 Schizoaffective disorder, bipolar type (principal); E03.9 Hypothyroidism, unspecified; F15.90 Other stimulant use, unspecified, uncomplicated; Z79.890 Hormone replacement therapy; Z79.899 Other long term (current) drug therapy; Z88.8 Allergy status to other drugs, medicaments and biological substances; I10 Essential (primary) hypertension; M79.7 Fibromyalgia; J45.909 Unspecified asthma, uncomplicated; E28.2 Polycystic ovarian syndrome; F17.200 Nicotine dependence, unspecified, uncomplicated; F10.20 Alcohol dependence, uncomplicated; B18.2 Chronic viral hepatitis C; K21.9 Gastro-esophageal reflux disease without esophagitis; K74.60 Unspecified cirrhosis of liver; Z91.148 Patient's other noncompliance with medication regimen for other reason; R56.9 Unspecified convulsions

== ENCOUNTER 2025-02-13 05:19 | Inpatient (IN) | payer MEDICARE, MEDICAID ==
[~2025-02-13] VITALS: Ht 165.1 cm; Wt 82.7 kg
[~2025-02-13 05:19] MED LIST changes: +DIVA500T9 PO; +NICO14DI6 TOP
[2025-02-13 06:09] LABS: PLATELET COUNT, AUTOMATED 205 10^3/uL (150-450)
[2025-02-13 06:33] LABS: BARBITURATES URINE NEGATIVE (NEGATIVE); BENZODIAZEPINES URINE NEGATIVE (NEGATIVE); COCAINE METABOLITE URINE NEGATIVE (NEGATIVE); METHADONE URINE NEGATIVE (NEGATIVE); OPIATES URINE NEGATIVE (NEGATIVE); PHENCYCLIDINE URINE NEGATIVE (NEGATIVE)
[2025-02-13 06:35] LABS: ETHYL ALCOHOL (ETHANOL) < 0.003 % (0.000-0.010)
[2025-02-13 06:36] LABS: AMPHETAMINES LEVEL URINE POSITIVE (NEGATIVE); CANNABINOIDS URINE POSITIVE (NEGATIVE); SALICYLATE LEVEL < 3.0 MG/DL (<30)
[2025-02-13 06:37] LABS: ALT/SGPT 14 U/L (7.0-40); AST/SGOT 17 U/L (<34); CALCIUM LEVEL 9.2 MG/DL (8.5-10.1); CARBON DIOXIDE LEVEL 24 MMOL/L (20-31); CHLORIDE LEVEL 109 MMOL/L (98-107); CREATININE FOR GFR 0.97 MG/DL (0.55-1.30); GLOMERULAR FILTRATION RATE 78.6 (>60); POTASSIUM SERUM 3.7 MMOL/L (3.5-5.1); SODIUM LEVEL 140 MMOL/L (136-145)
[2025-02-13 06:44] LABS: HCG, SERUM QUALITATIVE NEGATIVE (NEGATIVE)
[2025-02-13 08:13] LABS: VALPROIC ACID (DEPAKOTE) 20.6 UG/ML (50.0-100.0)
[2025-02-13] MEDS ORDERED: BENZ1TAB5 PO (09:29)
[2025-02-13] MEDS ORDERED: DIVA250T67 PO (09:29)
[2025-02-13] MEDS ORDERED: SYNT150T PO (09:29)
[2025-02-13] MEDS ORDERED: HOME MED LIST COMPLETE! XX SCH (09:30)
[2025-02-13] MEDS: BENZTROPINE 1 MG TAB PO SCH (10:37)
[2025-02-13] MEDS: DIVALPROEX 250 MG TAB PO SCH (10:38)
[2025-02-14] MEDS: LEVOTHYROXINE 150 MCG TABLET (0.15 MG) PO SCH (06:53)
[2025-02-14] MEDS ORDERED: ACETAMINOPHEN 325 MG TAB PO PRN (12:55)
[2025-02-14] MEDS ORDERED: MOM 30 ML SUSPENSION UDC PO PRN (12:55)
[2025-02-14] MEDS ORDERED: MAALOX 30 ML SUSP *UDC PO PRN (12:55)
[2025-02-14] MEDS ORDERED: IBUPROFEN 400 MG TAB PO PRN (12:55)
[2025-02-14] MEDS: NICOTINE 14 MG/24 HR TRANSDERMAL TD SCH (14:37)
[2025-02-14 15:38] VITALS: BP 127/81; TEMP 97.4
[2025-02-14] MEDS: DIVALPROEX 250 MG TAB PO SCH (20:33)
[2025-02-14] MEDS: BENZTROPINE 1 MG TAB PO SCH (20:33)
[2025-02-15] MEDS: LEVOTHYROXINE 150 MCG TABLET (0.15 MG) PO SCH (06:37)
[2025-02-15] MEDS: traZODone 50 MG TAB PO PRN (20:49)
[2025-02-15] MEDS: RISPERIDONE 1 MG TAB PO SCH (20:49)
[2025-02-16] MEDS: LORazepam 1 MG TAB PO PRN (20:59)
[2025-02-17] MEDS: OLANZapine 5 MG TAB PO PRN (21:47)
[2025-02-18] MEDS: DIVALPROEX 500 MG TAB PO SCH (21:00)
[2025-02-19] MEDS: DIVALPROEX 250 MG TAB PO SCH (09:00)
[2025-02-19 18:46] VITALS: BP 117/66; TEMP 97.6; O2SAT 99
[2025-02-21 06:51] VITALS: BP 97/54; TEMP 98.1; O2SAT 100
[2025-02-21 16:06] VITALS: BP 98/65; TEMP 98.5; O2SAT 95
[2025-02-21] MEDS: OLANZapine 10 MG TAB PO SCH (20:41)
[2025-02-23 15:57] VITALS: BP 100/76; TEMP 98.3; O2SAT 99
[2025-02-24 15:49] VITALS: BP 113/74; TEMP 98.6; O2SAT 100
[2025-02-25] MEDS ORDERED: OLAN1TAB20 PO (12:05)
[2025-02-25] MEDS ORDERED: TRAZ-252 PO (12:05)
[2025-02-25] MEDS ORDERED: DIVA-41 PO (12:05)
[2025-02-25] MEDS ORDERED: LEVO150T7 PO (12:05)
[2025-02-25] MEDS ORDERED: BENZ1TAB5 PO (12:05)
== END 2025-02-25 12:34 | disposition home or self-care (01) | DRG 885 ==
LOC: M ED 05:19 → M ED INP 02-14 12:53 → M PSY 02-14 14:25
PROVIDERS: ADMIT Internal Medicine; ATTEND Internal Medicine
DX: F25.0 Schizoaffective disorder, bipolar type (principal); F41.9 Anxiety disorder, unspecified; Z88.8 Allergy status to other drugs, medicaments and biological substances; E03.9 Hypothyroidism, unspecified; Z91.148 Patient's other noncompliance with medication regimen for other reason; Z79.890 Hormone replacement therapy; Z79.899 Other long term (current) drug therapy; F15.90 Other stimulant use, unspecified, uncomplicated

== ENCOUNTER 2025-02-26 14:10 | Emergency (ER) | payer MEDICARE, MEDICAID ==
[~2025-02-26] VITALS: Ht 165.1 cm; Wt 82.2 kg
[~2025-02-26 14:10] MED LIST changes: +DIVA-41 PO; +DIVA250T67 PO
[2025-02-26 14:33] VITALS: BP 151/96; TEMP 98.6; O2SAT 100
[2025-02-26 15:05] LABS: PLATELET COUNT, AUTOMATED 199 10^3/uL (150-450)
[2025-02-26] MEDS ORDERED: HOME MED LIST COMPLETE! XX SCH (15:10)
[2025-02-26 15:28] LABS: ETHYL ALCOHOL (ETHANOL) < 0.003 % (0.000-0.010)
[2025-02-26 15:29] LABS: SALICYLATE LEVEL < 3.0 MG/DL (<30)
[2025-02-26 15:30] LABS: ALT/SGPT 16 U/L (7.0-40); AST/SGOT 29 U/L (<34); CALCIUM LEVEL 9.8 MG/DL (8.5-10.1); CARBON DIOXIDE LEVEL 21 MMOL/L (20-31); CHLORIDE LEVEL 104 MMOL/L (98-107); CREATININE FOR GFR 1.24 MG/DL (0.55-1.30); GLOMERULAR FILTRATION RATE 58.6 (>60); POTASSIUM SERUM 4.9 MMOL/L (3.5-5.1); SODIUM LEVEL 142 MMOL/L (136-145)
[2025-02-26 15:31] LABS: HCG, SERUM QUALITATIVE NEGATIVE (NEGATIVE)
[2025-02-26 15:38] LABS: BARBITURATES URINE NEGATIVE (NEGATIVE); BENZODIAZEPINES URINE NEGATIVE (NEGATIVE); METHADONE URINE NEGATIVE (NEGATIVE); OPIATES URINE NEGATIVE (NEGATIVE); PHENCYCLIDINE URINE NEGATIVE (NEGATIVE)
[2025-02-26 15:39] LABS: AMPHETAMINES LEVEL URINE POSITIVE (NEGATIVE); CANNABINOIDS URINE NEGATIVE (NEGATIVE); COCAINE METABOLITE URINE POSITIVE (NEGATIVE)
== END 2025-02-26 16:58 | disposition home or self-care (01) ==
LOC: EDBD 14:10 → M ED 14:10
DX: F15.19 Other stimulant abuse with unspecified stimulant-induced disorder (principal); F14.10 Cocaine abuse, uncomplicated; F43.10 Post-traumatic stress disorder, unspecified; I10 Essential (primary) hypertension; B19.20 Unspecified viral hepatitis C without hepatic coma; F17.200 Nicotine dependence, unspecified, uncomplicated; K21.9 Gastro-esophageal reflux disease without esophagitis; F25.9 Schizoaffective disorder, unspecified; F10.10 Alcohol abuse, uncomplicated; Z88.8 Allergy status to other drugs, medicaments and biological substances; Z91.048 Other nonmedicinal substance allergy status; Z79.899 Other long term (current) drug therapy

== ENCOUNTER 2025-03-24 00:33 | Inpatient (IN) | payer MEDICARE, MEDICAID ==
[~2025-03-24] VITALS: Ht 165.1 cm; Wt 72.7 kg
[2025-03-24 01:14] LABS: PLATELET COUNT, AUTOMATED 139 10^3/uL (150-450)
[2025-03-24 01:36] LABS: AMPHETAMINES LEVEL URINE NEGATIVE (NEGATIVE); BARBITURATES URINE NEGATIVE (NEGATIVE); BENZODIAZEPINES URINE NEGATIVE (NEGATIVE); CANNABINOIDS URINE NEGATIVE (NEGATIVE); COCAINE METABOLITE URINE NEGATIVE (NEGATIVE); METHADONE URINE NEGATIVE (NEGATIVE); OPIATES URINE NEGATIVE (NEGATIVE); PHENCYCLIDINE URINE NEGATIVE (NEGATIVE)
[2025-03-24 01:39] LABS: ETHYL ALCOHOL (ETHANOL) < 0.003 % (0.000-0.010)
[2025-03-24 01:40] LABS: SALICYLATE LEVEL < 3.0 MG/DL (<30)
[2025-03-24 01:44] LABS: ALT/SGPT 11 U/L (7.0-40); AST/SGOT 11 U/L (<34); CALCIUM LEVEL 7.6 MG/DL (8.5-10.1); CARBON DIOXIDE LEVEL 27 MMOL/L (20-31); CHLORIDE LEVEL 108 MMOL/L (98-107); CREATININE FOR GFR 1.32 MG/DL (0.55-1.30); GLOMERULAR FILTRATION RATE 54.3 (>60); POTASSIUM SERUM 4.4 MMOL/L (3.5-5.1); SODIUM LEVEL 141 MMOL/L (136-145)
[2025-03-24] MEDS ORDERED: LURA60TA PO (04:17)
[2025-03-24] MEDS ORDERED: BUPR1FIL SL (04:17)
[2025-03-24] MEDS ORDERED: LURA80TA PO (04:17)
[2025-03-24] MEDS: CALCIUM CARBONATE 500 MG CHEW U/D PO ONE (05:05)
[2025-03-24] MEDS ORDERED: LORazepam 1 MG TAB PO PRN (05:30)
[2025-03-24] MEDS ORDERED: MAALOX 30 ML SUSP *UDC PO PRN (05:30)
[2025-03-24] MEDS ORDERED: IBUPROFEN 400 MG TAB PO PRN (05:30)
[2025-03-24] MEDS ORDERED: MOM 30 ML SUSPENSION UDC PO PRN (05:30)
[2025-03-24] MEDS ORDERED: OLANZapine 5 MG TAB PO PRN (05:30)
[2025-03-24] MEDS ORDERED: ACETAMINOPHEN 325 MG TAB PO PRN (05:30)
[2025-03-24] MEDS: LEVOTHYROXINE 150 MCG TABLET (0.15 MG) PO SCH (06:00)
[2025-03-24] MEDS ORDERED: OLAN1TAB20 PO (06:19)
[2025-03-24] MEDS ORDERED: DEPA1TAB3 PO (06:19)
[2025-03-24] MEDS ORDERED: HOME MED LIST COMPLETE! XX SCH (06:30)
[2025-03-24 08:45] VITALS: BP 100/55; TEMP 98.4; O2SAT 95
[2025-03-24 21:07] VITALS: BP 100/55; TEMP 98.4; O2SAT 95
[2025-03-24] MEDS: BENZTROPINE 1 MG TAB PO SCH (21:13)
[2025-03-24] MEDS: DIVALPROEX 500 MG TAB PO SCH (21:13)
[2025-03-24] MEDS: OLANZapine 10 MG TAB PO SCH (21:13)
[2025-03-24] MEDS: traZODone 50 MG TAB PO PRN (21:18)
[2025-03-25] MEDS: BUPRENORPHINE/NALOXONE 8-2MG SUBLINGUAL TABLET(SUBOXONE) SL SCH (14:19)
[2025-03-25 16:36] VITALS: BP 108/72; TEMP 97.7; O2SAT 97
[2025-03-25 21:05] VITALS: BP 108/72; TEMP 97.7; O2SAT 97
== END 2025-03-27 12:30 | disposition home or self-care (01) | DRG 885 ==
LOC: M ED 00:33 → M ED INP 05:28 → M PSY 08:40
PROVIDERS: ADMIT Psychiatry & Neurology Neurology; ATTEND Psychiatry & Neurology Neurology
DX: F25.0 Schizoaffective disorder, bipolar type (principal); R45.851 Suicidal ideations; F41.9 Anxiety disorder, unspecified; F15.10 Other stimulant abuse, uncomplicated; Z88.8 Allergy status to other drugs, medicaments and biological substances

== ENCOUNTER 2025-05-07 19:07 | Emergency (ER) | payer MEDICARE, MEDICAID ==
[~2025-05-07] VITALS: Ht 167.6 cm; Wt 77.3 kg
[~2025-05-07 19:07] MED LIST changes: +BUPR1FIL SL; +DEPA1TAB3 PO; -DIVA250T67 PO; +LURA60TA PO; +LURA80TA PO; +RISP-39 PO; -RISP3TAB20 PO; +[UNRECOGNIZED DRUG - CODE] PO
[2025-05-07 19:27] VITALS: TEMP 98.7
[2025-05-07 20:25] LABS: PLATELET COUNT, AUTOMATED 231 10^3/uL (150-450)
[2025-05-07 21:09] LABS: ALT/SGPT < 9 U/L (7.0-40); AST/SGOT 11 U/L (<34); CALCIUM LEVEL 9.0 MG/DL (8.5-10.1); CARBON DIOXIDE LEVEL 23 MMOL/L (20-31); CHLORIDE LEVEL 105 MMOL/L (98-107); CREATININE FOR GFR 1.21 MG/DL (0.55-1.30); GLOMERULAR FILTRATION RATE 60.3 (>60); POTASSIUM SERUM 3.6 MMOL/L (3.5-5.1); SODIUM LEVEL 138 MMOL/L (136-145)
[2025-05-07 22:22] LABS: VENOUS BASE EXCESS -0.3 (-2.0-2.0); VENOUS HCO3 23.4 MMOL/L (23.0-27.0); VENOUS O2 SATURATION 90.3 % (60.0-80.0); VENOUS PARTIAL PRESSURE CO2 35.8 mmHg (38.0-50.0); VENOUS PARTIAL PRESSURE O2 56.4 mmHg (30.0-50.0); VENOUS PH 7.434 UNITS (7.330-7.430); VENOUS STANDARD HCO3 24.1 MMOL/L; VENOUS TOTAL CO2 24.5 MMOL/L (24.0-28.0)
[2025-05-07 22:26] LABS: BASO # 0.1 10^3/uL (0.0-0.2); BASO % 0.7 % (0.0-1.0); EOS # 0.1 10^3/uL (0.0-0.5); EOS % 1.9 % (0.0-3.0); LYMPH # 2.9 10^3/uL (1.5-5.0); LYMPH % 38.7 % (24.0-44.0); MONO # 0.4 10^3/uL (0.0-0.8); MONO % 5.6 % (2.0-8.0); NEUTROPHILS # 3.9 10^3/uL (1.5-8.5); NEUTROPHILS % 52.8 % (36.0-66.0); PLATELET COUNT, AUTOMATED 218 10^3/uL (150-450)
[2025-05-07 22:52] LABS: CPK CREATINE PHOSPHOKINASE 63 U/L (34-145)
[2025-05-07 22:53] LABS: ALT/SGPT 9 U/L (7.0-40); AST/SGOT 11 U/L (<34); CALCIUM LEVEL 9.0 MG/DL (8.5-10.1); CARBON DIOXIDE LEVEL 23 MMOL/L (20-31); CHLORIDE LEVEL 105 MMOL/L (98-107); CK-MB VALUE MASS < 1.0 NG/ML (<3.6); CREATININE FOR GFR 1.27 MG/DL (0.55-1.30); GLOMERULAR FILTRATION RATE 56.9 (>60); HCG, SERUM QUANTITATIVE < 2.6 MIU/ML (<4.2); POTASSIUM SERUM 3.4 MMOL/L (3.5-5.1); SODIUM LEVEL 138 MMOL/L (136-145)
[2025-05-07 23:11] VITALS: BP 158/86
[2025-05-07 23:30] VITALS: O2SAT 98
[2025-05-07] MEDS: ONDANSETRON 4MG ORAL DISINTEGRATING TAB PO ONE (23:33)
== END 2025-05-07 23:46 | disposition home or self-care (01) ==
LOC: M ED 19:07
DX: T58.91XA Toxic effect of carbon monoxide from unspecified source, accidental (unintentional), initial encounter (principal); F17.200 Nicotine dependence, unspecified, uncomplicated; F10.10 Alcohol abuse, uncomplicated; Z88.8 Allergy status to other drugs, medicaments and biological substances; Z91.09 Other allergy status, other than to drugs and biological substances; Z79.899 Other long term (current) drug therapy; Y92.009 Unspecified place in unspecified non-institutional (private) residence as the place of occurrence of the external cause; Y93.89 Activity, other specified; Y99.9 Unspecified external cause status